=== PATIENT | male | born 1970 | race Caucasian/White ===

== ENCOUNTER 2023-01-31 12:36 | Outpatient (RCR) | payer BC, SELFPAY | END 2023-05-10 12:09 | disposition home or self-care (01) | LOC: HO.WCC 12:36 | PROVIDERS: PCP Family Medicine; Visit Provider Physician Assistant | DX: Z09 Encounter for follow-up examination after completed treatment for conditions other than malignant neoplasm (principal); E11.69 Type 2 diabetes mellitus with other specified complication; M86.471 Chronic osteomyelitis with draining sinus, right ankle and foot; M20.41 Other hammer toe(s) (acquired), right foot; I69.354 Hemiplegia and hemip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; E11.22 Type 2 diabetes mellitus with diabetic chronic kidney disease; I12.9 Hypertensive chronic kidney disease with stage 1 through stage 4 chronic kidney disease, or unspecified chronic kidney disease; N18.4 Chronic kidney disease, stage 4 (severe); Z86.31 Personal history of diabetic foot ulcer; Z87.891 Personal history of nicotine dependence; Z86.718 Personal history of other venous thrombosis and embolism; Z86.73 Personal history of transient ischemic attack (TIA), and cerebral infarction without residual deficits; Z79.2 Long term (current) use of antibiotics | CPT/HCPCS: 11042; 11043; 17250; 99212; 99213 ==

== ENCOUNTER 2023-04-07 10:56 | Outpatient (REF) | payer BC, SELFPAY ==
[2023-04-07 12:25] LABS: MANUAL DIFF FLAG NO
[2023-04-07 13:22] LABS: Basophils Absolute Auto 0.1 X10*3/uL (0.0-0.2); Basophils Percent Auto 0.6 % (0-2); Eosinophils Absolute Auto 0.3 X10*3/uL (0.0-0.4); Eosinophils Percent Auto 3.2 % (0-4); Hematocrit 35.8 % (42.0-52.0); Hemoglobin 11.6 g/dl (14.0-18.0); Imm Gran Abs Auto 0.03 X10*3/uL (0.00-0.03); Imm Gran Pct Auto 0.4 % (0.0-0.4); Lymphocytes Absolute Auto 0.8 X10*3/uL (1.2-4.9); Lymphocytes Percent Auto 10.2 % (20-40); Mean Corpuscular HGB Conc 32.4 g/dl (31.0-36.0); Mean Corpuscular Hemoglobin 28.9 pg (27.0-33.0); Mean Corpuscular Volume 89.1 fL (80.0-98.0); Monocytes Absolute Auto 0.4 X10*3/uL (0.1-1.2); Monocytes Percent Auto 5.5 % (2-11); Neutrophils Absolute Auto 6.2 x10*3/uL (2.0-8.3); Neutrophils Percent Auto 80.1 % (45-73); Platelet Count 280 X10*3/uL (160-400); Red Blood Count 4.02 X10*6/uL (4.60-5.80); Red Cell Distribution Width 13.4 % (11.0-16.0); White Blood Count 7.8 X10*3/uL (4.8-10.8)
[2023-04-07 15:01] LABS: Estimated Glomerular Filt Rate 19
== END 2023-04-07 10:57 | disposition home or self-care (01) ==
LOC: HO.LAB 10:56
PROVIDERS: PCP Family Medicine; Visit Provider Internal Medicine
DX: M86.9 Osteomyelitis, unspecified (principal); Q21.12 Patent foramen ovale; I10 Essential (primary) hypertension; E11.9 Type 2 diabetes mellitus without complications; I63.9 Cerebral infarction, unspecified; N19 Unspecified kidney failure; Z86.718 Personal history of other venous thrombosis and embolism
CPT/HCPCS: 36415; 82565; 85025

== ENCOUNTER 2023-04-07 10:56 | Outpatient (AMB) | payer BC, SELFPAY ==
--- NOTE | 2023-04-07 10:29 | MHC.OFFVIS ---
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 He is a diabetic with glycohemoglobin 6.7. He notices callus for years of right 5th toe. He sees Dr Oleary and had area debrided January 02. He had 5 days of Clindamycin after this and then Keflex for seven days. He has been to [facility] weekly since first week of January. He is on medical leave from [employer] and is residing at [place]. He has creatinine drawn today which is 3.33. He takes Sertraline at low dose ,50 mg. [facility] Medical History (Updated 04/09/23 @ 22:04 by Deysi Perez MD) Diabetes mellitus DVT (deep venous thrombosis) Hypertension Left-sided cerebrovascular accident (CVA) Osteomyelitis PFO (patent foramen ovale) Renal failure Social History (Updated 04/09/23 @ 21:59 by Deysi Perez MD) Patient Tobacco Use Status: Former Tobacco user Review of Systems Const All systems reviewed & are unremarkable except as noted in HPI and below Physical Exam Vital Signs: Last Vital Signs Pulse 61 04/07/23 11:09 BP 124/80 04/07/23 11:09 Pulse Ox 98 04/07/23 11:09 Neuro Other: dysarthria,left arm and leg weakness Extrem Other: right fifth toe ulcer Assessment & Plan Assessment & Plan (1) Osteomyelitis: Comment: He has no organism isolated right fifth toe ulcer. MRI shows soft tissue ulcer dorsal 5th PIP joint with cellulitis and no abscess. There is osteomyelitis 5th middle and proximal phalanges and probable fracture head 5th proximal phalanx. He most likely has gram positive organisms. Code(s): M86.9 - Osteomyelitis, unspecified Plan: Would not give IV antibiotics since h/o clot and GFR 15 and risk for more clots. Po linezolid 600 mg po bid for six weeks,suppressive treatment hopefully for osteomyelitis and can give with low dose SSRIs. See in two weeks. (2) PFO (patent foramen ovale): Code(s): Q21.12 - Patent foramen ovale (3) Hypertension: Code(s): I10 - Essential (primary) hypertension (4) DVT (deep venous thrombosis): Code(s): I82.409 - Acute embolism and thrombosis of unspecified deep veins of unspecified lower extremity (5) Diabetes mellitus: Code(s): E11.9 - Type 2 diabetes mellitus without complications (6) Left-sided cerebrovascular accident (CVA): Code(s): I63.9 - Cerebral infarction, unspecified (7) Renal failure: Code(s): N19 - Unspecified kidney failure Orders: Orders Creatinine 04/07/23 M86.9 - Osteomyelitis, unspecified Complete Blood Count Auto Diff 04/07/23 M86.9 - Osteomyelitis, unspecified Medications: New linezolid 600 mg PO BID 42 days 84 tabs 0RF linezolid 600 mg PO BID 42 days 84 tabs 0RF Coding Level of Care Code New Pt Level 3 (74566) Diagnoses Osteomyelitis M86.9 PFO (patent foramen ovale) Q21.12 Hypertension I10 DVT (deep venous thrombosis) I82.409 Diabetes mellitus E11.9 Left-sided cerebrovascular accident (CVA) I63.9 Renal failure N19
[2023-04-07 11:09] VITALS: BP 124/80; PULSE 61; O2SAT 98
== END 2023-04-07 12:53 | disposition home or self-care (01) ==
LOC: HO.HID 10:56
PROVIDERS: PCP Family Medicine; Visit Provider Internal Medicine
DX: M86.9 Osteomyelitis, unspecified (principal); Q21.12 Patent foramen ovale; I10 Essential (primary) hypertension; I82.409 Acute embolism and thrombosis of unspecified deep veins of unspecified lower extremity; E11.9 Type 2 diabetes mellitus without complications; I63.9 Cerebral infarction, unspecified; N19 Unspecified kidney failure
CPT/HCPCS: 99203

== ENCOUNTER 2023-05-03 14:52 | Outpatient (AMB) | payer BC, SELFPAY ==
--- NOTE | 2023-05-03 14:52 | MHC.OFFVIS ---
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 He is taking linezolid twice a day and sees Wound Clinic. PFS Medical History Diabetes mellitus DVT (deep venous thrombosis) Hypertension Left-sided cerebrovascular accident (CVA) Osteomyelitis PFO (patent foramen ovale) Renal failure Social History Patient Tobacco Use Status: Former Tobacco user Review of Systems Const All systems reviewed & are unremarkable except as noted in HPI and below Physical Exam Vital Signs: Last Vital Signs Pulse 73 05/03/23 14:57 BP 148/80 H 05/03/23 14:57 Pulse Ox 98 05/03/23 14:57 Const Other: General: cooperative Orientation/consciousness: patient oriented x3 HEENT Head: Yes normal to inspection Mouth: Normal oral and palatal mucosa present Eyes General: appearance normal, both eyes and all related structures Pupils: Equal, round and reactive pupils present Resp Effort & Inspection: normal respiratory effort Cardio Rate: regular rate Rhythm: regular rhythm GI Palpation (GI): Soft to palpation and nontender General: Yes no CVA tenderness Back/Spine/Pelvis Back: no CVA tenderness Skin General skin exam: no rashes or lesions noted Neuro General: patient oriented x3 Cranial nerves: Yes CN's II-XII intact bilaterally and Yes Equal, round and reactive pupils present Extrem Other: unremarkable foot pulses intact Psych Appearance: grossly normal Assessment & Plan Assessment & Plan (1) Osteomyelitis: Comment: He has no organism isolated right fifth toe ulcer. MRI shows soft tissue ulcer dorsal 5th PIP joint with cellulitis and no abscess. There is osteomyelitis 5th middle and proximal phalanges and probable fracture head 5th proximal phalanx. He most likely has gram positive organisms. Area is healing closed and not leaking and no complaints with linezolid. Code(s): M86.9 - Osteomyelitis, unspecified Plan: Would finish six weeks total linezolid help suppress. See again only if needed. Coding Level of Care Code Est Pt Level 3 (55280) Diagnoses Osteomyelitis M86.9
[2023-05-03 14:57] VITALS: BP 148/80; PULSE 73; O2SAT 98
== END 2023-05-03 15:44 | disposition home or self-care (01) ==
LOC: HO.HID 14:52
PROVIDERS: PCP Family Medicine; Visit Provider Internal Medicine
DX: M86.9 Osteomyelitis, unspecified (principal)
CPT/HCPCS: 99213

== ENCOUNTER → 2023-05-03 14:52 | Outpatient (BNVA) | payer BC, SELFPAY | PROVIDERS: PCP Family Medicine; Visit Provider Internal Medicine ==

== ENCOUNTER 2023-05-11 09:05 | Inpatient (IN) | payer BC, SELFPAY ==
[2023-05-11] VITALS (13 sets, daily range): BP systolic 130–195; BP diastolic 71–98; PULSE 72–96; RESP 14–18; TEMP 36.4–37.4; O2SAT 94–98; BMI 28.4
--- NOTE | ~2023-05-11 | XR_ITS ---
EXAMINATION: XR CHEST CLINICAL INFORMATION: Vomiting COMPARISON: None available. TECHNIQUE: Frontal view of the chest was obtained. FINDINGS: No significant abnormality is noted involving the heart, lungs, mediastinum, bony thorax or soft tissues. XR/XR chest 1V IMPRESSION: Unremarkable examination.
--- NOTE | ~2023-05-11 | CT_ITS ---
EXAMINATION: CT ABDOMEN AND PELVIS WITHOUT CONTRAST CLINICAL INFORMATION: Upper GI bleed with vomiting COMPARISON: None available. TECHNIQUE: Multidetector volumetric imaging was performed from the superior aspect of the liver through the pubic symphysis. Sagittal and coronal reformatted images were obtained on the technologist's workstation. This CT examination was performed using dose optimization techniques as appropriate, variously including the following: *Automated exposure control *Adjustment of mA and/or kV according to patient size (this includes techniques or standardized protocols for targeted exams where dose is matched to indication/reason for exam; i.e. extremities or head) *Use of iterative reconstruction technique DLP: 879 mGy-cm FINDINGS: LUNG BASES: The visualized lung bases are unremarkable. Dependent atelectasis is present. There is mild elevation of the left hemidiaphragm LIVER, GALLBLADDER, AND BILIARY TREE: The liver is normal in size, shape, and attenuation. No focal hepatic lesion or biliary ductal dilatation is present. Status post cholecystectomy PANCREAS: Unremarkable. SPLEEN: Unremarkable. ADRENAL GLANDS: Unremarkable. KIDNEYS AND URETERS: The kidneys are normal in size, shape, and attenuation. There is a benign simple cyst in the right kidney posteriorly measuring 2.6 cm which needs no additional imaging or follow-up. There is a heterogeneous appearing 3 cm mass in the right kidney laterally with some areas that measure fluid density but some areas that measure higher at 62 Hounsfield units. Neoplasm cannot be excluded. No hydronephrosis, hydroureter, or calculi seen. No perinephric stranding. BLADDER: Unremarkable. GASTROINTESTINAL TRACT: There are scattered colonic diverticula without diverticulitis. The small and large bowel are otherwise unremarkable. The appendix is unremarkable. ABDOMINAL WALL: No significant hernia is appreciated. LYMPH NODES: No retroperitoneal lymphadenopathy. VASCULAR: Minimal calcific plaque without aneurysm. PELVIC VISCERA: Mild BPH. Seminal vesicles appear normal OSSEOUS STRUCTURES: There is fusion of the right SI joint. The left SI joint appears unremarkable. There are mild degenerative changes in the spine and hips. No bony destruction. CT/CT abdomen pelvis wo IV con IMPRESSION: 1. A cause for the patient's vomiting and vomiting has not been found. 2. Indeterminate 3 cm right renal mass. Neoplasm needs to be excluded. Although ultrasound may be of value, I suspect that. Postcontrast cross-sectional imaging would be needed such as dedicated renal CT scan. 3. Incidental note made of cholecystectomy, colonic diverticulosis without diverticulitis, mild BPH and fusion of the right SI joint. Fleischner guidelines were followed.
--- NOTE | 2023-05-11 09:25 | PC.NURSE ---
pt comes in covered in blood from nose bleed. right nostril packed and gauze used for additional blood leaking from site. pt denies any injury, sts the nost bleed just started on its own and has not slowed down. denies all other symptoms including pain, however sts some weakness. pt left sided UE paralysis from stroke 4 years ago. on thinners. left LE partial paralysis, pt uses cane to ambulate. pt changed over to hospital attire and cleaned up from blood by darell Diego. pt resting quietly waiting to be seen by provider. in no apparent distress. call abbott within reach.
[2023-05-11 10:12] LABS: MANUAL DIFF FLAG NO
[2023-05-11 10:15] LABS: Basophils Percent Auto 0.4 % (0-2); Eosinophils Absolute Auto 0.2 X10*3/uL (0.0-0.4); Eosinophils Percent Auto 2.2 % (0-4); Hematocrit 25.9 % (42.0-52.0); Hemoglobin 8.8 g/dl (14.0-18.0); Imm Gran Abs Auto 0.03 X10*3/uL (0.00-0.03); Imm Gran Pct Auto 0.4 % (0.0-0.4); Lymphocytes Absolute Auto 0.8 X10*3/uL (1.2-4.9); Mean Corpuscular Hemoglobin 28.4 pg (27.0-33.0); Mean Corpuscular Volume 83.5 fL (80.0-98.0); Mean Platelet Volume 10.5 fL (9.4-12.4); Monocytes Absolute Auto 0.5 X10*3/uL (0.1-1.2); Monocytes Percent Auto 6.6 % (2-11); Neutrophils Absolute Auto 5.9 x10*3/uL (2.0-8.3); Neutrophils Percent Auto 79.4 % (45-73); Platelet Count 158 X10*3/uL (160-400); Red Cell Distribution Width 12.9 % (11.0-16.0); White Blood Count 7.4 X10*3/uL (4.8-10.8)
--- NOTE | 2023-05-11 10:17 | PC.NURSE ---
rhino rocket placed by MELISSA Torres to the pt's right nostril. pt hollered in pain but was able to tolerate. rhino rocket already saturated with blood and is oozing through. pt provided with gauze. pt sts pain has decreased from the placement of the rhino rocket and is resting quietly upright in bed.
[2023-05-11 10:19] LABS: Prothrombin Time 24.3 SEC (11.1-13.3)
--- NOTE | 2023-05-11 10:27 | ED.EPISTAXIS ---
History of Present Illness General Chief Complaint: Epistaxis Stated Complaint: BLOODY NOSE SINCE 5AM FROM SNF PER EMS Time Seen by Provider: 05/11/23 09:18 Source: patient Mode of arrival: EMS Limitations: no limitations History of Present Illness HPI Narrative: 53 y o male PMH DVT, left-sided CVA on Elliquis, CKD, and HTN presenting for right sided epistaxis since 0430 this am. Also reports vomiting for the past 2 days, now reporting it is brown with red tinge. Last dose of Elliquis this morning. Patient arrives via EMS from a SNF in which they attempted direct pressure to stop the bleeding with no improvement, and then nursing staff packed his right nare with cotton gauze still with no improvement. To note, at the time of this provider's history, patient actively projectile vomiting coffee ground emesis. Patient denying dizziness, shortness of breath, abdominal pain, visual changes, numbness or tingling. Also denying any fevers, chills, weight loss or gain. No history of gastric cancers or GERD. Related Data Home Medications Medication Instructions Recorded Confirmed amlodipine 10 mg tablet 10 mg PO DAILY 04/07/23 apixaban 5 mg tablet (Eliquis) 5 mg PO BID 04/07/23 carvedilol 12.5 mg tablet 12.5 mg PO BID 04/07/23 empagliflozin 10 mg tablet 10 mg PO DAILY 04/07/23 (Jardiance) levothyroxine 50 mcg capsule 50 mcg PO DAILY 04/07/23 pantoprazole 40 mg tablet,delayed 40 mg PO DAILY 04/07/23 release sertraline 50 mg tablet 50 mg PO DAILY 04/07/23 trazodone 50 mg tablet 25 mg PO DAILY 04/07/23 Previous Rx's Medication Instructions Recorded linezolid 600 mg tablet 600 mg PO BID 42 days #84 tabs 04/07/23 Allergies Allergy/AdvReac Type Severity Reaction Status Date / Time gabapentin Allergy Unknown Verified 05/03/23 14:58 Review of Systems Review of Systems: Constitutional : No Weight loss, No Fever, No Chills, No Fatigue, No Malaise ENT/Mouth : No sore throat, No Rhinorrhea, +epistaxis Eyes: No Eye Pain, No Swelling, No Redness Cardiovascular : No Chest Pain, No SOB, No Dyspnea on Exertion, No Orthopnea, No Edema, No Palpitations Respiratory : No Cough, No Sputum, No Wheezing Gastrointestinal : +Nausea, +Vomiting, No Diarrhea, No Constipation, No abdominal Pain, No Hematochezia, No Melena Genitourinary : No Dysuria, No Urinary Frequency, No Hematuria Musculoskeletal : No joint pain, No Myalgias, No Joint Swelling Skin : No Skin Lesions, No rash Neuro : No Weakness, No Numbness, No Dizziness, No Headache Psych : No Anxiety/Panic, No Depression Heme/Lymph: No Bruising, No Bleeding,No Lymphadenopathy Endocrine : No Polyuria, No Polydipsia All other systems reviewed and are negative Yes all other systems are reviewed and are negative [facility] Past Medical History Attestation statement: The following information was validated with the patient. Source: old records reviewed and nursing notes reviewed Medical History Diabetes mellitus DVT (deep venous thrombosis) Hypertension Left-sided cerebrovascular accident (CVA) Osteomyelitis PFO (patent foramen ovale) Renal failure Social History Social History Patient Tobacco Use Status: Former Tobacco user Smoked in Last 30 Days: No Use of substances other than those prescribed or required for medical reasons: No Advance Directives: No Advance Directives Information Provided: No Physical Exam Vital Signs: Vital Signs: Last Vital Signs Temp 97.6 F 05/11/23 14:59 Pulse 80 05/11/23 14:59 Resp 18 05/11/23 14:59 BP 183/97 H 05/11/23 14:59 Pulse Ox 96 05/11/23 09:13 O2 Del Method Room Air 05/11/23 09:13 BMI result Body Mass Index 28.4 Appearance: Alert. Oriented X3. No acute distress. ? No accessory muscle use Head: Normal external exam. Normocephalic. Atraumatic. ? Eyes: PERRLA. EOMI. Conjunctiva and sclera normal. Eyelids normal. ? ENT: Pharynx normal. Uvula midline. Moist mucous membranes. ? No trismus noted.? No drooling noted.? No muffled voice noted. +Epistaxis of the right nare Neck: ?Soft full range of motion, no JVD CVS: ?Heart regular rate and rhythm no murmurs and rubs Respiratory: ?Breath sounds are clear to auscultation bilaterally. No wheezing or stridor.? No accessory muscle use noted. Abdomen: ?Soft nontender no rebound or guarding positive bowel sounds Skin: Skin warm and dry.? Normal skin color.? Normal skin turgor. No rashes/lesions/lacerations noted. Extremities: No lower extremity edema. ? Extremities exhibit normal range of motion.? Extremities nontender. Neuro: Oriented X 3.? No motor deficit.? No sensory deficit.? Reflexes normal Course Reevaluation(s) Reevaluation #1: CBC with a normocytic anemia at 8.8 and 25.9 then was accidentally repeated about 25 minutes after showing a hemoglobin of 9.3, hematocrit 27.4. Patient's chemistry showing an acute on chronic kidney injury BUN of 48, creatinine 3.68 this appears to be around patient's baseline. Patient's magnesium 1.4 will give IV Mag. mmediately upon patient's arrival I did place a 5 point from eyes right-sided rhino rocket, I did 1st coat the rhino rocket in TXA to help control bleeding. Patient tolerated this procedure well without complications. Patient has had 2 episodes of vomiting with rosie red blood, large volume. Call out to ELDA Flowers. Time: 11:00 Reevaluation #2: Patient continues to vomit rosie red blood, I did speak to ELDA Pedersen, patient remains hemodynamically stable, recommends vitamin K, FFP and close observation. Will reach back out to him if patient's hemodynamics status changes. Pending CT abdomen pelvis and chest x-ray. Time: 11:20 Reevaluation #3: I did speak to Dr. [place] earlier at around 1035 who tells me patient has a history of vomiting intermittently he believes this is psychogenic in nature. He also reports that patient has been having right-sided epistaxis multiple episodes within the past week this seems to be the worse. Patient is currently has osteomyelitis of toe which she is being treated for by the wound center. He also reports that patient had outpatient labs yesterday which revealed a hematocrit 27.4. He would like to be informed of any changes related to patient care will call him with updates. [id number] Time: 11:26 Additional Reevaluation(s): CBC stable. Dr. Pedersen GI in room will see patiient. ? UGIB but also epistaxis. Patient hemodynamically stable. Will be admitted for observation and possible upper endoscopy. Medications Administered Discontinued Medications Generic Name Dose Route Start Last Admin Trade Name Evelin PRN Reason Stop Dose Admin Acetaminophen 650 mg 05/11/23 14:26 05/11/23 14:45 Acetaminophen 325 Mg Tablet PO 05/11/23 14:27 650 mg ONCE ONE Administration Phytonadione 10 mg/ Sodium 51 mls @ 51 mls/hr 05/11/23 11:19 05/11/23 13:55 Chloride IV 05/11/23 12:18 Infused ONCE ONE Infusion Magnesium Sulfate 2 gm in 50 mls @ 25 mls/hr 05/11/23 11:23 05/11/23 14:27 Magnesium Sulfate/H2o IV 05/11/23 13:22 Infused ONCE ONE Infusion Ondansetron HCl 4 mg 05/11/23 11:07 05/11/23 11:15 Ondansetron Hcl 4 Mg/2 Ml Vial IVPUSH 05/11/23 11:08 4 mg ONCE ONE Administration Pantoprazole Sodium 40 mg 05/11/23 10:33 05/11/23 10:57 Pantoprazole Sodium 40 Mg/10 Ml Vial IVPUSH 05/11/23 10:34 40 mg ONCE ONE Administration Tranexamic Acid 500 mg 05/11/23 10:07 05/11/23 10:29 Tranexamic Acid 1,000 Mg/10 Ml Vial INTRANASAL 05/11/23 10:08 500 mg ONCE ONE Administration Medical Decision Making Medical Decision Making [facility] Narrative: 1030 53 y o male PMH DVT, left-sided CVA on Elliquis, HTN, CKD presenting for evaluation of vomiting x3 days and epistaxis since this AM, still actively bleeding with conservative efforts. PE concerning for actively vomiting coffee ground emesis, as well as Concern for epistaxis w/ possible concomitant UGIB > LGIB which may include Boerhaave syndrome vs zee-pedersen tear vs esophageal varices vs gastritis vs gastric ulcer vs duodenal ulcer vs perforation. Less concerned for GI malignancy, acute abdomen. No signs of hemodynamic instability at this time. Plan for labs, imaging, hemoccult and reassess. Will obtain T&S and continue hemodynamic monitoring. Differential Diagnosis Differential Diagnoses: The differential diagnosis associated with the presentation includes Concern for epistaxis w/ possible concomitant UGIB > LGIB which may include Boerhaave syndrome vs zee-pedersen tear vs esophageal varices vs gastritis vs gastric ulcer vs duodenal ulcer vs perforation. Less concerned for GI malignancy, acute abdomen. No signs of hemodynamic instability at this time. Admission/Observation Consideration of admission/observation: Escalation of care including admission/observation considered Consult Healthcare Provider Management of the patient was discussed with: Manager Social Services Lab Data MDM Lab Attestation statement: I reviewed the patient's lab results. 05/11/23 13:52 05/11/23 10:07 Labs: Lab Results 05/11/23 05/11/23 05/11/23 Range/Units 10:07 10:21 10:36 WBC 7.4 8.5 (4.8-10.8) X10*3/uL RBC 3.10 L D 3.26 L (4.60-5.80) X10*6/uL Hgb 8.8 L D 9.3 L (14.0-18.0) g/dl Hct 25.9 L D 27.4 L (42.0-52.0) % MCV 83.5 84.0 (80.0-98.0) fL MCH 28.4 28.5 (27.0-33.0) pg MCHC 34.0 33.9 (31.0-36.0) g/dl RDW 12.9 12.9 (11.0-16.0) % Plt Count 158 L D 172 (160-400) X10*3/uL MPV 10.5 10.4 (9.4-12.4) fL Immature Gran % (Auto) 0.4 0.5 H (0.0-0.4) % Neut % (Auto) 79.4 H 80.6 H (45-73) % Lymph % (Auto) 11.0 L 10.5 L (20-40) % [place] % (Auto) 6.6 5.9 (2-11) % Eos % (Auto) 2.2 2.1 (0-4) % Baso % (Auto) 0.4 0.4 (0-2) % Lymph # (Auto) 0.8 L 0.9 L (1.2-4.9) X10*3/uL [place] # (Auto) 0.5 0.5 (0.1-1.2) X10*3/uL Eos # (Auto) 0.2 0.2 (0.0-0.4) X10*3/uL Baso # (Auto) 0.0 0.0 (0.0-0.2) X10*3/uL Abs Immat Gran (auto) 0.03 0.04 H (0.00-0.03) X10*3/uL Absolute Neuts (auto) 5.9 6.8 (2.0-8.3) x10*3/uL Absolute Nucleated RBC 0.000 0.000 (0.0-0.012) X10*3/uL Nucleated RBC % (auto) 0.0 0.0 (0.0-0.2) /100WBC PT 24.3 H (11.1-13.3) SEC INR 2.0 H (0.9-1.1) Sodium 140 (135-145) mmol/L Potassium 3.8 (3.3-5.1) mmol/L Chloride 111 H (96-108) mmol/L Carbon Dioxide 19 L (22-29) mmol/L Anion Gap 14 (12-20) BUN 48 H (9-16) mg/dL Creatinine 3.68 H (0.5-1.4) mg/dL Estim Creat Clear Calc 28.1 Estimated GFR 17 Random Glucose 139 H (60-115) mg/dL Calcium 8.0 L (8.4-10.2) mg/dL Magnesium 1.4 L* (1.6-2.6) mg/dL Total Bilirubin 0.3 (0.0-1.0) mg/dL AST 12 (5-37) U/L ALT 22 (0-40) U/L Alkaline Phosphatase 89 (39-117) U/L Total Protein 6.7 (6.5-8.0) g/dL Albumin 3.9 (3.5-5.0) g/dL Stool Occult Blood POSITIVE (NEGATIVE) Blood Type O Positive Antibody Screen NEGATIVE 05/11/23 Range/Units 13:52 WBC 9.9 (4.8-10.8) X10*3/uL RBC 3.55 L (4.60-5.80) X10*6/uL Hgb 10.1 L (14.0-18.0) g/dl Hct 30.5 L (42.0-52.0) % MCV 85.9 (80.0-98.0) fL MCH 28.5 (27.0-33.0) pg MCHC 33.1 (31.0-36.0) g/dl RDW 12.8 (11.0-16.0) % Plt Count 178 (160-400) X10*3/uL MPV 10.6 (9.4-12.4) fL Immature Gran % (Auto) 0.3 (0.0-0.4) % Neut % (Auto) 87.2 H (45-73) % Lymph % (Auto) 7.4 L (20-40) % [place] % (Auto) 3.7 (2-11) % Eos % (Auto) 1.0 (0-4) % Baso % (Auto) 0.4 (0-2) % Lymph # (Auto) 0.7 L (1.2-4.9) X10*3/uL [place] # (Auto) 0.4 (0.1-1.2) X10*3/uL Eos # (Auto) 0.1 (0.0-0.4) X10*3/uL Baso # (Auto) 0.0 (0.0-0.2) X10*3/uL Abs Immat Gran (auto) 0.03 (0.00-0.03) X10*3/uL Absolute Neuts (auto) 8.6 H (2.0-8.3) x10*3/uL Absolute Nucleated RBC 0.000 (0.0-0.012) X10*3/uL Nucleated RBC % (auto) 0.0 (0.0-0.2) /100WBC PT (11.1-13.3) SEC INR (0.9-1.1) Sodium (135-145) mmol/L Potassium (3.3-5.1) mmol/L Chloride (96-108) mmol/L Carbon Dioxide (22-29) mmol/L Anion Gap (12-20) BUN (9-16) mg/dL Creatinine (0.5-1.4) mg/dL Estim Creat Clear Calc Estimated GFR Random Glucose (60-115) mg/dL Calcium (8.4-10.2) mg/dL Magnesium (1.6-2.6) mg/dL Total Bilirubin (0.0-1.0) mg/dL AST (5-37) U/L ALT (0-40) U/L Alkaline Phosphatase (39-117) U/L Total Protein (6.5-8.0) g/dL Albumin (3.5-5.0) g/dL Stool Occult Blood (NEGATIVE) Blood Type Antibody Screen Independent Interpretation I performed an independent interpretation of an: CT Scan ( CT/CT abdomen pelvis wo IV con IMPRESSION: 1. A cause for the patient's vomiting and vomiting has not been found. 2. Indeterminate 3 cm right renal mass. Neoplasm needs to be excluded. Although ultrasound may be of value, I suspect that. Postcontrast cross-sectional imaging would be needed such a) Radiology Impression Discussion of test interpretation with radiology: I have reviewed the radiologist's reading. External Record Review External record reviewed: Inpatient record, Office record, Outpatient record, Prior outpatient labs, Prior outpatient radiology, Primary care record and Outside ED record Chronic Conditions Patient?s care impacted by: Diabetes, Hypertension and Other (VIRA, CVA ) Critical Care Time Critical Care Time Critical Care Time: Yes Total Critical Care Time: 45 Attestation: I attest to this time spent taking care of the patient, obtaining history, physical, reviewing labs, imaging, speaking to my attending, speaking to specialist. Discharge Plan Discharge Clinical Impression: Acute upper GI bleeding, Epistaxis Patient Disposition: Admitted As Inpatient Prescriptions: No Action trazodone 50 mg tablet 25 mg PO DAILY levothyroxine 50 mcg capsule 50 mcg PO DAILY pantoprazole 40 mg tablet,delayed release (DR/EC) 40 mg PO DAILY amlodipine 10 mg tablet 10 mg PO DAILY Jardiance 10 mg tablet 10 mg PO DAILY sertraline 50 mg tablet 50 mg PO DAILY carvedilol 12.5 mg tablet 12.5 mg PO BID Rx Instructions: must administer with a meal/food Eliquis 5 mg tablet 5 mg PO BID linezolid 600 mg tablet 600 mg PO BID 42 Days Qty: 84 0RF
[2023-05-11] MEDS: Tranexamic Acid 1,000 MG/10 ML VIAL 500 MG INTRANASAL (10:29)
[2023-05-11 10:30] LABS: OBS Int Ctl Valid YES; OBS1 POSITIVE (NEGATIVE)
[2023-05-11 10:33] LABS: Alanine Aminotransferase 22 U/L (0-40); Albumin Level 3.9 g/dL (3.5-5.0); Alkaline Phosphatase 89 U/L (39-117); Anion Gap 14 (12-20); Aspartate Amino Transferase 12 U/L (5-37); Bilirubin Total 0.3 mg/dL (0.0-1.0); Blood Urea Nitrogen 48 mg/dL (9-16); Carbon Dioxide 19 mmol/L (22-29); Chloride 111 mmol/L (96-108); Creatinine Clr Calc Pharmacy 28.1; Estimated Glomerular Filt Rate 17; Glucose Random 139 mg/dL (60-115); Magnesium 1.4 mg/dL (1.6-2.6); Potassium 3.8 mmol/L (3.3-5.1); Sodium 140 mmol/L (135-145); Total Protein 6.7 g/dL (6.5-8.0)
[2023-05-11 10:46] LABS: MANUAL DIFF FLAG NO
[2023-05-11 10:48] LABS: Basophils Percent Auto 0.4 % (0-2); Eosinophils Absolute Auto 0.2 X10*3/uL (0.0-0.4); Eosinophils Percent Auto 2.1 % (0-4); Hematocrit 27.4 % (42.0-52.0); Hemoglobin 9.3 g/dl (14.0-18.0); Imm Gran Abs Auto 0.04 X10*3/uL (0.00-0.03); Imm Gran Pct Auto 0.5 % (0.0-0.4); Lymphocytes Absolute Auto 0.9 X10*3/uL (1.2-4.9); Lymphocytes Percent Auto 10.5 % (20-40); Mean Corpuscular HGB Conc 33.9 g/dl (31.0-36.0); Mean Corpuscular Hemoglobin 28.5 pg (27.0-33.0); Mean Platelet Volume 10.4 fL (9.4-12.4); Monocytes Absolute Auto 0.5 X10*3/uL (0.1-1.2); Monocytes Percent Auto 5.9 % (2-11); Neutrophils Absolute Auto 6.8 x10*3/uL (2.0-8.3); Neutrophils Percent Auto 80.6 % (45-73); Platelet Count 172 X10*3/uL (160-400); Red Blood Count 3.26 X10*6/uL (4.60-5.80); Red Cell Distribution Width 12.9 % (11.0-16.0); White Blood Count 8.5 X10*3/uL (4.8-10.8)
[2023-05-11] MEDS: Pantoprazole Sodium 40 MG/10 ML VIAL IVPUSH (10:57)
--- NOTE | 2023-05-11 11:00 | PC.NURSE ---
pt began to vomit black sludgy emesis. provider notified and aware. pt medicated per oct. large bore IV established to the L wrist/forearm by ANDREW New. pt cleaned up, changed, and full bed linen changeover. currently resting quietly on stretcher. call abbott within pt reach.
[2023-05-11] MEDS: ondansetron HCL 4 MG/2 ML VIAL IVPUSH (11:15)
[2023-05-11] MEDS: Phytonadione (Vit K1) 10 MG in 0.9 % Sodium Chloride 50 ML 51 MG IV (12:06)
[2023-05-11] MEDS: Magnesium Sulfate/H2O 2 GM/50 ML PIGGYBACK IV (12:31)
--- NOTE | 2023-05-11 13:23 | MHC.EDTECH ---
patient attempted to void twice but is unsuccessful, RN AWARE.
[2023-05-11 13:57] LABS: MANUAL DIFF FLAG NO
[2023-05-11 13:59] LABS: Basophils Percent Auto 0.4 % (0-2); Eosinophils Absolute Auto 0.1 X10*3/uL (0.0-0.4); Hematocrit 30.5 % (42.0-52.0); Hemoglobin 10.1 g/dl (14.0-18.0); Imm Gran Abs Auto 0.03 X10*3/uL (0.00-0.03); Imm Gran Pct Auto 0.3 % (0.0-0.4); Lymphocytes Absolute Auto 0.7 X10*3/uL (1.2-4.9); Lymphocytes Percent Auto 7.4 % (20-40); Mean Corpuscular HGB Conc 33.1 g/dl (31.0-36.0); Mean Corpuscular Hemoglobin 28.5 pg (27.0-33.0); Mean Corpuscular Volume 85.9 fL (80.0-98.0); Mean Platelet Volume 10.6 fL (9.4-12.4); Monocytes Absolute Auto 0.4 X10*3/uL (0.1-1.2); Monocytes Percent Auto 3.7 % (2-11); Neutrophils Absolute Auto 8.6 x10*3/uL (2.0-8.3); Neutrophils Percent Auto 87.2 % (45-73); Platelet Count 178 X10*3/uL (160-400); Red Blood Count 3.55 X10*6/uL (4.60-5.80); Red Cell Distribution Width 12.8 % (11.0-16.0); White Blood Count 9.9 X10*3/uL (4.8-10.8)
[2023-05-11] MEDS: Acetaminophen 325 MG TABLET 650 MG PO (14:45)
[2023-05-11] MEDS: Amoxicillin/Potassium Clav 875 MG TABLET PO (16:15)
--- NOTE | 2023-05-11 16:58 | PHA.MEDREC ---
med rec complete, used list from SNF Pharmacy Consult ? Medication Reconciliation Pharmacy has completed the medication reconciliation.
--- NOTE | 2023-05-11 17:36 | PM.IMHP ---
History of Present Illness Date of Service: 05/11/23 Chief Complaint: nosebleed 53yo M with CKD4, DM2, HTN, hypothyroidism, hx L-sided CVA [2019], hx DVT now on apixaban, and osteomyelitis of the 5th middle and proximal phalanges for which he is on 6 wk of PO linezolid. 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 He presents with vomiting for the past 2 days but actually he states that he has had nausea and vomiting all my life . He developed a nosebleed from the R nare at 0430 this AM and actually has had several episodes of epistaxis this week. Direct pressure and anterior packing by nursing staff did not stop the bleed. In the ED, a Rhino Rocket coated in TXA was placed with hemostasis. He developed 2 episodes of projectile coffee-ground emesis and the pleat patternmaker Dr Nichols was consulted. He was given vitamin K and FFP. Hemoglobin was stable at 8.8->9.3->10.1. INR 2. SCr 3.68 [3.33 on 04/07/23]. Denies history of GI bleeding or liver cirrhosis. He denies fever, chills, lightheadedness, dyspnea, chest pain, or abdominal pain. [facility] Medical History Renal failure PFO (patent foramen ovale) Hypertension DVT (deep venous thrombosis) Diabetes mellitus Left-sided cerebrovascular accident (CVA) Osteomyelitis Pertinent family history: no liver disease, bleeding diathesis, or kidney disease Social History Patient Tobacco Use Status: Former Tobacco user Smoked in Last 30 Days: No Use of substances other than those prescribed or required for medical reasons: No Advance Directives: No Advance Directives Information Provided: No Meds Allergies Allergy/AdvReac Type Severity Reaction Status Date / Time gabapentin Allergy Unknown Verified 05/03/23 14:58 Active Medications: Current Medications Amlodipine Besylate (Amlodipine Besylate 10 Mg Tablet) 10 mg PO DAILY [facility]; Protocol Atorvastatin Calcium (Atorvastatin Calcium 40 Mg Tablet) 40 mg PO BEDTIME [facility] Calcitriol (Calcitriol 0.25 Mcg Capsule) 0.25 mcg PO DAILY [facility] Carvedilol (Carvedilol 12.5 Mg Tablet) 12.5 mg PO BID [facility]; Protocol Dextrose (Dextrose 50 % 25 Gm/50 Ml Syringe) 25 gm IVPUSH Q15M PRN; Protocol PRN Reason: per Hypoglycemia Standing Ord. Famotidine (Famotidine 20 Mg Tablet) 10 mg PO BID PRN PRN Reason: Nausea Glucose (Glucose Gel 15 Gm Gel..Gram.) 15 gm PO Q15M PRN; Protocol PRN Reason: per Hypoglycemia Standing Ord. Guaifenesin (Guaifenesin 100 Mg/5 Ml Liquid) ml PO Q4H PRN PRN Reason: Cough Desmopressin Acetate 20 mcg/ (Sodium Chloride) 55 mls @ 100 mls/hr IV ONCE ONE Stop: 05/11/23 18:07 Insulin Human Lispro (Insulin Lispro 100 Unit/Ml 3 Ml Vial) 0 unit SUBCUT QIDACHS [facility]; Protocol Levothyroxine Sodium (Levothyroxine Sodium 50 Mcg Tablet) 50 mcg PO DAILY [facility] Linezolid (Linezolid 600 Mg Tablet) 600 mg PO BID [facility] Pantoprazole Sodium (Pantoprazole Sodium 40 Mg/10 Ml Vial) 40 mg IVPUSH BID@0630,1630 [facility] Sertraline HCl (Sertraline Hcl 50 Mg Tablet) 50 mg PO DAILY [facility] Trazodone HCl (Trazodone Hcl 25 Mg Halftab) 25 mg PO BEDTIME [facility] Home Medications Medication Instructions Recorded Confirmed Last Taken Type amlodipine 10 mg tablet 10 mg PO DAILY 04/07/23 05/11/23 Unknown History apixaban 5 mg tablet (Eliquis) 5 mg PO BID 04/07/23 05/11/23 Unknown History carvedilol 12.5 mg tablet 12.5 mg PO BID 04/07/23 05/11/23 Unknown History empagliflozin 10 mg tablet 10 mg PO DAILY 04/07/23 05/11/23 Unknown History (Jardiance) levothyroxine 50 mcg capsule 50 mcg PO DAILY 04/07/23 05/11/23 Unknown History pantoprazole 40 mg tablet,delayed 40 mg PO DAILY 04/07/23 05/11/23 Unknown History release sertraline 50 mg tablet 50 mg PO DAILY 04/07/23 05/11/23 Unknown History trazodone 50 mg tablet 25 mg PO BEDTIME 04/07/23 05/11/23 Unknown History Lactobacil.acidophilus-Bifido.animalis 1 cap PO DAILY 05/11/23 05/11/23 Unknown History 5 billion cell sprinkle capsule (Probiotic) acetaminophen 325 mg tablet 650 mg PO Q6H PRN Pain 05/11/23 05/11/23 Unknown History atorvastatin 40 mg tablet 40 mg PO BEDTIME 05/11/23 05/11/23 Unknown History calcitriol 0.25 mcg capsule 0.25 mcg PO DAILY 05/11/23 05/11/23 Unknown History ciclopirox 0.77 % topical gel 1 appl topical BID 05/11/23 05/11/23 Unknown History famotidine 10 mg tablet (Pepcid AC) 10 mg PO BID PRN Nausea 05/11/23 05/11/23 Unknown History guaifenesin 100 mg/5 mL oral liquid 200 mg PO Q4H PRN Cough 05/11/23 05/11/23 Unknown History ondansetron 4 mg disintegrating 4 mg PO Q6H PRN Nausea 05/11/23 05/11/23 Unknown History tablet tramadol 50 mg tablet 50 mg PO Q8H PRN Pain 05/11/23 05/11/23 Unknown History Physical Exam Vital Signs and Narrative: Vital Signs: Last Vital Signs Temp 97.7 F 05/11/23 15:20 Pulse 82 05/11/23 17:15 Resp 14 05/11/23 17:15 BP 152/76 H 05/11/23 17:15 Pulse Ox 94 05/11/23 17:15 O2 Del Method Room Air 05/11/23 17:15 BMI result Body Mass Index 28.4 Gen: in no acute distress HEENT: sclera anicteric, moist mucus membranes, Rhino-Rocket in place Neck: supple Lungs: clear to auscultation bilaterally Heart: regular rate and rhythm, no murmurs Abd: soft, non-tender, non-distended Ext: no edema Skin: warm/well-perfused Neuro: alert and oriented x3, chronic L hemiplegia Psych: appropriate affect Results Labs 05/11/23 13:52 05/11/23 10:07 Labs: Laboratory Results - last 24 hr 05/11/23 05/11/23 05/11/23 10:07 10:21 10:36 MCV 83.5 84.0 MCH 28.4 28.5 MCHC 34.0 33.9 RDW 12.9 12.9 Plt Count 158 L D 172 MPV 10.5 10.4 Immature Gran % (Auto) 0.4 0.5 H Neut % (Auto) 79.4 H 80.6 H Lymph % (Auto) 11.0 L 10.5 L [place] % (Auto) 6.6 5.9 Eos % (Auto) 2.2 2.1 Baso % (Auto) 0.4 0.4 Lymph # (Auto) 0.8 L 0.9 L [place] # (Auto) 0.5 0.5 Eos # (Auto) 0.2 0.2 Baso # (Auto) 0.0 0.0 Abs Immat Gran (auto) 0.03 0.04 H Absolute Neuts (auto) 5.9 6.8 Absolute Nucleated RBC 0.000 0.000 Nucleated RBC % (auto) 0.0 0.0 PT 24.3 H INR 2.0 H Anion Gap 14 Estim Creat Clear Calc 28.1 Estimated GFR 17 Random Glucose 139 H Calcium 8.0 L Magnesium 1.4 L* Total Bilirubin 0.3 AST 12 ALT 22 Alkaline Phosphatase 89 Total Protein 6.7 Albumin 3.9 Stool Occult Blood POSITIVE Blood Type O Positive Antibody Screen NEGATIVE 05/11/23 13:52 MCV 85.9 MCH 28.5 MCHC 33.1 RDW 12.8 Plt Count 178 MPV 10.6 Immature Gran % (Auto) 0.3 Neut % (Auto) 87.2 H Lymph % (Auto) 7.4 L [place] % (Auto) 3.7 Eos % (Auto) 1.0 Baso % (Auto) 0.4 Lymph # (Auto) 0.7 L [place] # (Auto) 0.4 Eos # (Auto) 0.1 Baso # (Auto) 0.0 Abs Immat Gran (auto) 0.03 Absolute Neuts (auto) 8.6 H Absolute Nucleated RBC 0.000 Nucleated RBC % (auto) 0.0 PT INR Anion Gap Estim Creat Clear Calc Estimated GFR Random Glucose Calcium Magnesium Total Bilirubin AST ALT Alkaline Phosphatase Total Protein Albumin Stool Occult Blood Blood Type Antibody Screen Imaging Radiologist's Impressions: Impressions Chest X-Ray 05/11/23 12:04 IMPRESSION: Unremarkable examination. Abdomen/Pelvis CT 05/11/23 13:19 IMPRESSION: 1. A cause for the patient's vomiting and vomiting has not been found. 2. Indeterminate 3 cm right renal mass. Neoplasm needs to be excluded. Although ultrasound may be of value, I suspect that. Postcontrast cross-sectional imaging would be needed such as dedicated renal CT scan. 3. Incidental note made of cholecystectomy, colonic diverticulosis without diverticulitis, mild BPH and fusion of the right SI joint. Fleischner guidelines were followed. Assessment and Plan (1) Epistaxis: Status: Acute (2) Acute upper GI bleeding: Status: Acute Plan 53yo M with CKD4, DM2, HTN, hypothyroidism, hx L-sided CVA [2019], hx DVT now on apixaban, and osteomyelitis of the 5th middle and proximal phalanges for which he is on 6 wk of PO linezolid. Presenting with epistaxis requiring Rhino Rocket, then developed coffee-ground emesis x2 concerning for acute UGIB. UGIB - Admit to telemetry, give IV PPI, monitor H+H + INR. Suspect Juju-Nichols tear but will have endoscopic evaluation and thus will be NPO. epistaxis - Rhino-Rocket x72h then removal by ENT as outpt [ED and pt aware we do not have inpt ENT consultation]. ABX ppx while in place; amp-sul while NPO, then amox-clav when taking PO hypoMg - repleted IV; recheck level in AM incidental R renal mass - Outpt CT or MRI osteomyelitis of 5th phalanx - Continue PO linezolid CKD4 - Creatinine close to baseline, avoid nephrotoxins hypothyroidism - LT4 HTN - Carvedilol, amlodipine HLD - Atorvastatin DM2 - Correction-dose lispro hx DVT hx CVA - Hold apixaban mood disorder - Continue sertraline + trazodone VTE ppx - SCDs, hold apiaxaban due to bleeding code - DNR/DNI, MOLST in chart I anticipate that the patient will stay at least 2 midnights as an inpatient in the hospital due to the above reasons. It is neither reasonable nor safe to care for them in a less acute setting. Time Spent With Patient Time: Total time managing care of this patient today ____ minutes. Quality Stroke Does the patient have a stroke diagnosis?: No VTE Prior VTE?: No VTE Risk Level:: Medical - moderate - high VTE Device Contraindication: N/A - Device Ordered VTE Drug Contraindication: Treatment Not Indicated
--- OUTSIDE RECORDS SUMMARY | 2023-05-11 17:42 | XMS_ITS | Continuity of Care Document ---
Author Name Unknown Organization [facility] ter Address [address] [place] [id number]- Care Team Providers Care Manager Fiber Name Role Phone Eliana LEDESMA, Elvis N Primary Care Physician [phone] [place] [facility] [place] - 09/04/[address] [id number] Encounter Diagnosis COVID(Final) - 08/31/21 Discharge Disposition: A-D/C Home Attending Physician: Aldair LEDESMA, Darvin Motley Admitting Physician: Elizabeth Montiel MD Referring Physician: Not on Staff, Referring MD Allergies, Adverse Reactions, Alerts Substance Reaction Severity Status NKA Active Immunizations Given and Recorded Vaccine Date Status Refusal Reason influenza virus vaccine, inactivated 05/15/20 Alfred rded Medications amLODIPine 10 mg oral tablet 1 tablet = 10 mg, By Mouth, Daily, # 30 tablet, 0 Refills, Maintenance, 09/01/21 10:01:00 EST, Tablet, Partial fill upon patient request if the prescription is for a schedule II opioid drug. Start Date: 09/01/21 Status: Ordered atorvastatin 40 mg oral tablet 1 tablet = 40 mg, By Mouth, Daily, # 90 tablet, 0 Refills, Maintenance, 09/01/21 10:02:00 EST, Tablet, Partial fill upon patient request if the prescription is for a schedule II opioid drug. Start Date: 09/01/21 Status: Ordered carvedilol 12.5 mg oral tablet 12.5 mg, 1, tablet, By Mouth, 2 times a day, # 180 tablet, Refills 0, Maintenance, 09/01/21 10:03:00 EST, Partial fill upon patient request if the prescription is for a schedule II opioid drug. Start Date: 09/01/21 Status: Ordered carvedilol 12.5 mg oral tablet 12.5 mg, Tablet, By Mouth, 09/04/21 9:00:00 EST Start Date: 09/04/21 Stop Date: 09/04/21 Status: Completed Eliquis 5 mg oral tablet 1 tablet = 5 mg, By Mouth, 2 times a day, # 60 tablet, 5 Refills, Maintenance, 09/01/21 10:01:00 EST, Tablet, Partial fill upon patient request if the prescription is for a schedule II opioid drug. Start Date: 09/01/21 Status: Ordered hydrALAZINE 25 mg oral tablet 50 mg, Tablet, By Mouth, 09/04/21 10:34:00 EST Start Date: 09/04/21 Stop Date: 09/04/21 Status: Completed hydrALAZINE 25 mg oral tablet 50 mg, 2, tablet, By Mouth, 2 times a day, # 120 tablet, Refills 0, Tot. Refills 0, Maintenance, 09/04/21 21:00:00 EST, Route to Pharmacy Electronically, [facility]/pharmacy #[id number], Partial fill upon patientrequest if the prescription is for a schedule II op... Start Date: 09/04/21 Status: Ordered levothyroxine 0.05 mg oral tablet 1 tablet = 50 mcg, By Mouth, Daily, # 30 tablet, 0 Refills, Maintenance, 09/01/21 10:03:00 EST, Tablet, Partial fill upon patient request if the prescription is for a schedule II opioid drug. Start Date: 09/01/21 Status: Ordered metFORMIN 500 mg oral tablet 1 tablet = 500 mg, By Mouth, 2 times a day, # 180 tablet, 0 Refills, Maintenance, 09/01/21 10:02:00EST, Tablet, Partial fill upon patient request if the prescription is for a schedule II opioid drug. Start Date: 09/01/21 Status: Ordered NIFEdipine 30 mg oral tablet, extended release 30 mg, 1, tablet, By Mouth, 2 times a day, # 60 tablet, Refills 0, Tot. Refills 0, Maintenance, 09/04/21 21:00:00 EST, Route to Pharmacy Electronically, [facility]/pharmacy #[id number], Partial fill upon patient request if the prescription is for a schedule II opi... Start Date: 09/04/21 Status: Ordered NIFEdipine 30 mg oral tablet, extended release 30 mg, ER Tablet, By Mouth, 09/04/21 9:00:00 EST Start Date: 09/04/21 Stop Date: 09/04/21 Status: Completed pantoprazole 40 mg oral delayed release tablet 1 tablet = 40 mg, By Mouth, Daily, # 30 tablet, 0 Refills, Maintenance, 09/01/21 10:02:00 EST, EC Tablet Start Date: 09/01/21 Status: Ordered sertraline 50 mg oral tablet 1 tablet = 50 mg, By Mouth, Daily, # 30 tablet, 0 Refills, Maintenance, 09/01/21 10:01:00 EST, Tablet, Partial fill upon patient request if the prescription is for a schedule II opioid drug. Start Date: 09/01/21 Status: Ordered Vital Signs Most recent to oldest [Reference Range]: 1 2 3 4 Height 188 cm (09/03/21 12:15 AM) 188 cm (09/02/21 7:59 PM) 188 cm (09/02/21 11:41 AM) Oxygen Saturation [94-100 %] 100 % (09/04/21 11:00 AM) 98 % (09/04/21 8:00 AM) 100 % (09/04/21 4:00 AM) Pulse Rate [55-90 bpm] 65 bpm (09/04/21 11:00 AM) 62 bpm (09/04/21 8:54 AM) 62 bpm (09/04/21 8:00 AM) Blood Pressure [90-138/55-84 mm Hg] 157/86mm Hg *H* (09/04/21 12:15 PM) 157/86mm Hg *H* (09/04/21 11:00 AM) 179/86mm Hg *H* (09/04/21 8:54 AM) 176/86mm Hg *H* (09/04/21 8:54 AM) Respiratory Rate [16-30 br/min] 18 br/min (09/04/21 11:00 AM) 18 br/min (09/04/21 8:00 AM) 18 br/min (09/04/21 4:00 AM) Temperature [96.8-100.4 DegF] 97.3 DegF (09/04/21 11:00 AM) 97.8 DegF (09/04/21 8:00 AM) 98.4 DegF (09/04/21 4:00 AM) Mode of Delivery (Oxygen) Room air (09/04/21 11:00 AM) Room air (09/04/21 8:00 AM) Room air (09/04/21 4:00 AM) Blood pressure sites Arm, right (09/04/21 11:00 AM) Arm, right (09/04/21 8:00 AM) Arm, right (09/04/21 4:00 AM) Temperature Route Axillary (09/04/21 11:00 AM) Oral (09/04/21 8:00 AM) Oral (09/04/21 4:00 AM) Dry Weight 97.7 kg (09/02/21 11:41 AM) Dry Weight Obtained Via Patient lift hanging scale (09/02/21 11:41 AM)
--- OUTSIDE RECORDS SUMMARY | 2023-05-11 17:42 | XMS_ITS | Continuity of Care Document ---
Author Name Unknown Organization [facility] Address [address] [facility], [address] Floor, [address] [place] [id number]- Care Team Providers Care Early Childhood Services Coordinator Name Role Phone Nikolay LEDESMA, Jun Primary Care Physician [phone] Encounter [facility] [place] Date(s): 06/05/20 - 06/12/20 [facility] [address], [address], [address] [place] [id number] [facility] Attending Physician: Evette Segovia MD, Marisol Referring Physician: Radha LEDESMA , Neeru Freeman Allergies, Adverse Reactions, Alerts No Known Medication Allergies Medications amLODIPine 5 mg oral tablet 5 mg, 1, tablet, By Mouth, Daily, Refills 0, Maintenance, 06/05/20 9:51:00 EDT Start Date: 06/05/20 Status: Ordered atorvastatin 40 mg oral tablet 1 tablet = 40 mg, By Mouth, Daily, 0 Refills, Maintenance, 06/05/20 9:50:00 EDT Start Date: 06/05/20 Status: Ordered Eliquis 5 mg oral tablet 1 tablet = 5 mg, By Mouth, 2 times a day, 0 Refills, Maintenance, 06/05/20 9:50:00 EDT Start Date: 06/05/20 Status: Ordered lisinopril 40 mg oral tablet 1 tablet = 40 mg, By Mouth, Daily, 0 Refills, Maintenance, 06/05/20 9:50:00 EDT Start Date: 06/05/20 Status: Ordered metFORMIN 500 mg oral tablet 1 tablet = 500 mg, By Mouth, 2 times a day, 0 Refills, Maintenance, 06/05/20 9:49:00 EDT Start Date: 06/05/20 Status: Ordered pantoprazole 40 mg oral delayed release tablet 1 tablet = 40 mg, By Mouth, Daily, 0 Refills, Maintenance, 06/05/20 9:51:00 EDT Start Date: 06/05/20 Status: Ordered Vitamin D2 2000 intl units oral capsule By Mouth, Daily, 0 Refills, Maintenance, 06/05/20 9:51:00 EDT Start Date: 06/05/20 Status: Ordered Zoloft 100 mg oral tablet 1.5 tablet = 150 mg, By Mouth, Daily, 0 Refills, Maintenance, 06/05/20 9:48:00 EDT Start Date: 06/05/20 Status: Ordered Vital Signs Most recent to oldest [Reference Range]: 1 Oxygen Saturation [94-100 %] 100 % (06/05/20 9:34 AM) Pulse Rate [55-90 bpm] 70 bpm (06/05/20 9:34 AM) Blood Pressure [90-138/55-84 mm Hg] 178/ 91mm Hg *H* (06/05/20 9:34 AM) Temperature [96.8-100.4 DegF] 98.0 DegF (06/05/20 9:34 AM) Mode of Delivery (Oxygen) Room air (06/05/20 9:34 AM) Blood pressure sites Arm, right (06/05/20 9:34 AM) Social History Social History Type Response Sex Male
--- OUTSIDE RECORDS SUMMARY | 2023-05-11 17:42 | XMS_ITS | Continuity of Care Document ---
Author Name Unknown Organization [facility] ter Address [address] [place] [id number]- Care Team Providers Care Sports Therapist Name Role Phone Eliana LEDESMA, Elvis Vazquez Primary Care Physician [phone] [place] [facility] [place] 03/06/22 - 03/09/[address] [id number] Encounter Diagnosis Fall(Final) - 03/06/22 Generalized weakness(Final) - 03/06/22 Discharge Disposition: A-Transfer SNF Attending Physician: Anum Valdes MD Admitting Physician: Taras Bullard MD Referring Physician: Not on Staff, Referring MD Allergies, Adverse Reactions, Alerts No Known Allergies Immunizations Given and Recorded Vaccine Date Status Refusal Reason influenza virus vaccine, inactivated 05/15/20 Alfred rded Medications amLODIPine 10 mg oral tablet 10 mg, Tablet, By Mouth, 03/09/22 9:00:00 EDT Start Date: 03/09/22 Stop Date: 03/09/22 Status: Completed amLODIPine 10 mg oral tablet 10 mg, 1, tablet, By Mouth, Daily, # 30 tablet, Refills 0, Tot. Refills 0, Maintenance, 03/03/22 8:22:00 EDT, Route to Pharmacy Electronically, [facility]/pharmacy #[id number], Partial fill upon patient request if the prescription is for a schedule II opioid drug.... Start Date: 03/03/22 Status: Ordered apixaban = 5 mg, By Mouth, 2 times a day, 0 Refills, Maintenance, 03/03/22 8:23:00 EDT, Tablet, Partial fillupon patient request if the prescription is for a schedule II opioid drug. Start Date: 03/03/22 Status: Ordered atorvastatin 40 mg oral tablet 1 tablet = 40 mg, By Mouth, Daily, # 30 tablet, 5 Refills, Maintenance, 03/03/22 8:25:00 EDT, Tablet, [facility]/pharmacy #[id number], Partial fill upon patient request if the prescription is for a schedule II opioid drug., 184.7, cm, 03/03/22 7:32:00 EDT, Height,... Start Date: 03/03/22 Status: Ordered bisacodyl 10 mg rectal suppository 1 supp = 10 mg, Rectally, Daily, PRN Constipation, 0 Refills, Maintenance, 03/09/22 14:08:00 EDT, Suppository, Partial fill upon patient request if the prescription is for a schedule II opioid drug. Start Date: 03/09/22 Status: Ordered Coreg 12.5 mg oral tablet 12.5 mg, Tablet, By Mouth, 03/09/22 9:00:00 EDT Start Date: 03/09/22 Stop Date: 03/09/22 Status: Completed Coreg 12.5 mg oral tablet 12.5 mg, 1, tablet, By Mouth, 2 times a day, Refills 0, Maintenance, 03/03/22 8:23:00 EDT, Partial fill upon patient request if the prescription is for a schedule II opioid drug. Start Date: 03/03/22 Status: Ordered docusate-senna 50 mg-8.6 mg oral capsule 2 tablet, By Mouth, Daily, PRN Constipation, 0 Refills, Maintenance, 03/09/22 14:08:00 EDT, Capsule, Partial fill upon patient request if the prescription is for a schedule II opioid drug. Start Date: 03/09/22 Status: Ordered levothyroxine 50 mcg (0.05 mg) oral capsule 1 capsule = 50 mcg, By Mouth, Daily, 0 Refills, Maintenance, 03/06/22 16:20:00 EDT, Partial fill upon patient request if the prescription is for a schedule II opioid drug. Start Date: 03/06/22 Status: Ordered metFORMIN 500 mg oral tablet 1 tablet = 500 mg, By Mouth, 2 times a day with meals, 0 Refills, Maintenance, 03/06/22 16:21:00 EDT, Partial fill upon patient request if the prescription is for a schedule II opioid drug. Start Date: 03/06/22 Status: Ordered MiraLax Powder 1 pack/packet = 17 Gm, By Mouth, Daily, PRN Constipation, 0 Refills, Maintenance, 03/09/22 14:08:00EDT, Powder, Partial fill upon patient request if the prescription is for a schedule II opioid drug. Start Date: 03/09/22 Status: Ordered Nicotine = 21 mg, Topically, Daily, PRN Smoking Cessation, 0 Refills, Maintenance, 03/09/22 10:00:00 EDT, Patch, Partial fill upon patient request if the prescription is for a schedule II opioid drug. Start Date: 03/09/22 Status: Ordered Symbicort 160mcg/4.5mcg Inhaler 2, puffs, Inhalation, 2 times a day, Refills 0, Maintenance, 03/06/22 16:20:00 EDT Start Date: 03/06/22 Status: Ordered Tums 500 mg oral tablet, chewable 1,000 mg, 2, tablet, Chew, Every 6 hours, PRN, Maintenance, Dyspepsia, 03/02/22 15:56:00 EDT, Partial fill upon patient request if the prescription is for a schedule II opioid drug. Start Date: 03/02/22 Status: Ordered Zoloft 100 mg oral tablet 1 tablet = 100 mg, By Mouth, Daily, # 30 tablet, 0 Refills, Maintenance, 03/03/22 8:25:00 EDT, Tablet, [facility]/pharmacy #[id number], Partial fill upon patient request if the prescription is for a schedule II opioid drug., 184.7, cm, 03/03/22 7:32:00 EDT, Height... Start Date: 03/03/22 Status: Ordered Problem List Condition Effective Dates Status Health Status Inform ant Chronic kidney disease stage 3B(Confirmed) Active Depression(Confirmed) Active Essential hypertension(Confirmed) Active GERD - Gastro-esophageal ref lux disease(Confirmed) Active History of COVID-19(Confirmed) Active History of embolic stroke du e to PFO with left hemiparesis(Confirmed) Active Hyperlipidemia(Confirmed) Active Hypothyroidism(Confirmed) Active Nonadherence with treatment(Confirmed) Active Do not intubate, perform CPR , or defibrillate(Confirmed) Active PFO - Patent foramen ovale(Confirmed) Active Tobacco dependence(Confirmed) Active Type 2 diabetes mellitus wit h complication(Confirmed) Active Vital Signs Most recent to oldest [Reference Range]: 1 2 3 Height 185 cm (03/09/22 11:23 AM) 185 cm (03/08/22 10:22 AM) Weight 81.7 kg (03/08/22 10:22 AM) Oxygen Saturation [94-100 %] 97 % (03/09/22 4:00 PM) 97 % (03/09/22 7:00 AM) 98 % (03/09/22 12:00 AM) Pulse Rate [55-90 bpm] 76 bpm (03/09/22 4:00 PM) 85 bpm (03/09/22 8:58 AM) 61 bpm (03/09/22 7:00 AM) Body Mass Index [18.5-24.99] 23.87 (03/08/22 10:22 AM) Blood Pressure [90-138/55-84 mm Hg] 163/83mm Hg *H* (03/09/22 4:00 PM) 143/110mm Hg *H* (03/09/22 8:58 AM) 143/110mm Hg *H* (03/09/22 8:57 AM) Respiratory Rate [16-30 br/min] 18 br/min (03/09/22 4:00 PM) 16 br/min (03/09/22 7:00 AM) 18 br/min (03/09/22 4:00 AM) Temperature [96.8-100.4 DegF] 97.8 DegF (03/09/22 4:00 PM) 98.1 DegF (03/09/22 7:00 AM) 98.0 DegF (03/09/22 4:00 AM) Liters per Minute 0 L/min (03/06/22 3:33 PM) Mode of Delivery (Oxygen) Room air (03/09/22 4:00 PM) Room air (03/09/22 7:00 AM) Room air (03/09/22 4:00 AM) Blood pressure sites Arm, left (03/09/22 4:00 PM) Arm, right (03/09/22 7:00 AM) Arm, right (03/09/22 4:00 AM) Temperature Route Axillary (03/09/22 4:00 PM) Oral (03/09/22 7:00 AM) Oral (03/09/22 4:00 AM) Dry Weight 81.7 kg (03/08/22 10:22 AM) Weight Obtained Via Bed scale (03/08/22 10:22 AM) Dry Weight Obtained Via Bed scale (03/08/22 10:22 AM) Social History Social History Type Response Smoking Status 10 or more cigarette s (1/2 pack or more)/day in last 30 days entered on: 03/02/22 Sex Male
--- OUTSIDE RECORDS SUMMARY | 2023-05-11 17:42 | XMS_ITS | Continuity of Care Document ---
Author Name Unknown Organization [facility] Address [address] [facility], [address]r d Floor, [address] [place] [id number]- Care Team Providers Care Needlemaker Name Role Phone Jun Link MD Primary Care Physician [phone] [place] [facility] [place]20 [facility] [address], 3rd Floor, [address] [place] [id number] Attending Physician: Ruthy Walker Admitting Physician: AdmRuthy larry Referring Physician: Admtr, Ar8 Allergies, Adverse Reactions, Alerts No Known Medication [...] 9:48:00 EDT Start Date: 06/05/20 Status: Ordered Social History Social History Type Response Sex Male
--- OUTSIDE RECORDS SUMMARY | 2023-05-11 17:42 | XMS_ITS | Continuity of Care Document ---
Author Name Unknown Organization [facility] ter Address [address] [place] [id number]- Care Team Providers Care Canned Food Reconditioning Inspector Name Role Phone Eliana LEDESMA, Elvis Vazquez Primary Care Physician [place] [facility] [place]): [place] - 03/15/[address] [address]- Encounter Diagnosis Acute kidney injury superimposed on CKD(Final) - 03/12/22 Discharge Disposition: Transfer Snf Care Attending Physician: Rosibel Loco MD Admitting Physician: Tahir Mills MD Referring Physician: Not on Staff, Referring MD Allergies, Adverse Reactions, Alerts No Known Allergies Immunizations Given and Recorded Vaccine Date Status Refusal Reason influenza virus vaccine, inactivated 05/15/20 Alfred rded Medications acetaminophen 325 mg oral tablet 650 mg, 2, tablet, By Mouth, Every 4 hours, PRN, Maintenance, as needed for fever/pain, 03/13/22 8:22:00 EDT, Partial fill upon patient request if the prescription is for a schedule II opioid drug. Start Date: 03/13/22 Status: Ordered amLODIPine 10 mg oral tablet 10 mg, Tablet, By Mouth, 03/15/22 9:00:00 EDT Start Date: 03/15/22 Stop Date: 03/15/22 Status: Completed amLODIPine 10 mg oral tablet 10 mg, 1, tablet, By Mouth, Daily, # 30 tablet, Refills 0, Tot. Refills 0, Maintenance, 03/03/22 8:22:00 EDT, Route to Pharmacy Electronically, [facility]/pharmacy #[id number], Partial fill upon patient request if the prescription is for a schedule II opioid drug.... Start Date: 03/03/22 Status: Ordered atorvastatin 40 mg oral tablet 1 tablet = 40 mg, By Mouth, Daily, # 30 tablet, 5 Refills, Maintenance, 03/03/22 8:25:00 EDT, Tablet, [facility]/pharmacy #[id number], Partial fill upon patient request if the prescription is for a schedule II opioid drug., 184.7, cm, 03/03/22 7:32:00 EDT, Height,... Start Date: 03/03/22 Status: Ordered bisacodyl 10 mg rectal suppository 1 supp = 10 mg, Rectally, Daily, PRN as needed for constipation, 0 Refills, Maintenance, 03/09/22 14:08:00 EDT, Suppository, Partial fill upon patient request if the prescription is for a schedule IIopioid drug. Start Date: 03/09/22 Status: Ordered Coreg 12.5 mg oral tablet 25 mg, Tablet, By Mouth, 03/15/22 9:00:00 EDT Start Date: 03/15/22 Stop Date: 03/15/22 Status: Completed Coreg 12.5 mg oral tablet 25 mg, 2, tablet, By Mouth, 2 times a day, Refills 0, Maintenance, 03/15/22 11:09:00 EDT, Partial fill upon patient request if the prescription is for a schedule II opioid drug. Start Date: 03/15/22 Status: Ordered docusate-senna 50 mg-8.6 mg oral capsule 2 tablet, By Mouth, Daily, PRN Constipation, 0 Refills, Maintenance, 03/09/22 14:08:00 EDT, Capsule, Partial fill upon patient request if the prescription is for a schedule II opioid drug. Start Date: 03/09/22 Status: Ordered Eliquis 5 mg oral tablet 1 tablet = 5 mg, By Mouth, 2 times a day, Maintenance, 03/13/22 8:19:00 EDT, Tablet, Partial fill upon patient request if the prescription is for a schedule II opioid drug. Start Date: 03/13/22 Status: Ordered Fleet Enema 19 gm-7 gm rectal enema 1 each, Rectally, Once, PRN for constipation, Maintenance, 03/13/22 8:22:00 EDT, Enema, Partial fill upon patient request if the prescription is for a schedule II opioid drug. Start Date: 03/13/22 Status: Ordered Humalog 100 u/ml subcutaneous injection 2-8 units, Subcutaneous Infusion, 3 times a day before meals, Inject as per sliding scale: 200-249=2 units 250-299=4 units 300-349=6 units 350-399=8 units 400-999=call MD, Maintenance, 03/13/22 8:26:00 EDT, Partial fill upon patient request if th... Start Date: 03/13/22 Status: Ordered levothyroxine 0.05 mg oral tablet 1 tablet = 50 mcg, By Mouth, Daily, Maintenance, 03/13/22 8:20:00 EDT, Tablet, Partial fill upon patient request if the prescription is for a schedule II opioid drug. Start Date: 03/13/22 Status: Ordered lisinopril 5 mg oral tablet 5 mg, Tablet, By Mouth, 03/15/22 11:30:00 EDT Start Date: 03/15/22 Stop Date: 03/15/22 Status: Completed lisinopril 5 mg oral tablet 5 mg, 1, tablet, By Mouth, Daily, Refills 0, Maintenance, 03/15/22 11:09:00 EDT, Partial fill upon patient request if the prescription is for a schedule II opioid drug. Start Date: 03/15/22 Status: Ordered metFORMIN 500 mg oral tablet [...] opioid drug. Start Date: 03/09/22 Status: Ordered Senna 8.6 mg oral tablet 8.6 mg, 1, tablet, By Mouth, Daily, PRN, Maintenance, as needed for constipation, 03/13/22 8:22:00 EDT, Partial fill upon patient request if the prescription is for a schedule II opioid drug. Start Date: 03/13/22 Status: Ordered Symbicort 160mcg/4.5mcg Inhaler 2, puffs, [...] 0 Refills, Maintenance, 03/03/22 8:25:00 EDT, Tablet, [id number], Partial fill upon patient request if [...] 2 diabetes mellitus wit h complication(Confirmed) Active Results Radiology Reports * Exam Date Time Procedure Performing Provider Status 03/15/22 12:32 PM Esophagus Barium Swallow Benson Villatoro rta; Auth (Verified) Notes: (Esophagus Barium Swallow) Reason For Exam: Choking During Eating;Choking During Eating RESULT: Esophagus Barium Swallow PROCEDURE: Esophagus Barium Swallow CLINICAL INDICATION: Reason: Choking During Eating; Clinical Question(s): Dysmotility COMPARISONS: None FLUOROSCOPY TIME: 2 minutes 42 seconds EXPOSURE: 1891.8 uGym2 TECHNIQUE: Barium contrast esophagram was performed by Samuel Joel PA-C. FINDINGS: Limited rn cardiac rehab is noted projecting over the left hemithorax. This is probably a loop recorder. Swallow: Normal oral and pharyngeal phases with no laryngeal penetration or subglottic aspiration. Esophagus: Normal in contour and mucosal appearance. Some tertiary contractions of the distal half the esophagus are seen with proximal escape of barium bolus noted. Nothing diagnostic of hiatal hernia. Spontaneous gastroesophageal reflux was appreciated during the study. A 13 mm barium tablet passed unimpeded into the stomach. No evidence of esophageal web, narrowing or outpouching. No esophageal obstruction. The stomach and proximal duodenum are grossly normal. Contrast promptly empties from the stomach into a nondilated duodenum. No gastric outlet obstruction. IMPRESSION: Spontaneous gastroesophageal reflux. Mild esophageal dysmotility. By undersigning and finalizing the report, the attending radiologist confirms he/she has personallyreviewed and interpreted the images and agrees with the description of the findings. I have personally reviewed the images and I agree with this report. WSN: [id number] Ordering Physician: Rosibel Loco Dictated By: Elliott Francis Dictated Date/Time: 03/15/22 1:45 pm Reviewed By: Derek Jones MD, V Signed By: Derek Jones MD, V Signed Date/Time: 03/15/22 1:50 pm Transcribed By: KERI Transcribed Date/Time: 03/15/22 1:27 pm Vital Signs Most recent to oldest [Reference Range]: 1 2 3 Height 186 cm (03/15/22 5:34 AM) 186 cm (03/15/22 5:06 AM) 186 cm (03/14/22 8:08 PM) Weight 82.1 kg (03/13/22 1:24 PM) 81.7 kg (03/13/22 10:33 AM) Oxygen Saturation [94-100 %] 95 % (03/15/22 1:00 PM) 97 % (03/15/22 5:06 AM) 97 % (03/14/22 8:08 PM) Pulse Rate [55-90 bpm] 63 bpm (03/15/22 1:00 PM) 66 bpm (03/15/22 6:07 AM) 66 bpm (03/15/22 5:34 AM) Body Mass Index [18.5-24.99] 23.73 (03/13/22 1:24 PM) Blood Pressure [90-138/55-84 mm Hg] 151/86mm Hg *H* (03/15/22 1:19 PM) 144/81mm Hg *H* (03/15/22 11:00 AM) 171/85mm Hg *H* (03/15/22 8:36 AM) Respiratory Rate [16-30 br/min] 17 br/min (03/15/22 1:00 PM) 18 br/min (03/15/22 5:06 AM) 19 br/min (03/14/22 8:08 PM) Temperature [96.8-100.4 DegF] 98.4 DegF (03/15/22 1:00 PM) 98.2 DegF (03/15/22 5:06 AM) 98.2 DegF (03/14/22 8:08 PM) Liters per Minute 2 L/min (03/14/22 8:08 PM) Mode of Delivery (Oxygen) Room air (03/15/22 1:00 PM) Room air (03/15/22 5:06 AM) Nasal cannula (03/14/22 8:08 PM) Blood pressure sites Arm, left (03/15/22 1:00 PM) Arm, right (03/15/22 5:34 AM) Arm, right (03/15/22 5:06 AM) Temperature Route Oral (03/15/22 1:00 PM) Oral (03/15/22 5:06 AM) Oral (03/14/22 8:08 PM) Dry Weight 82.1 kg (03/13/22 1:24 PM) Social History Social History Type Response Smoking Status 10 or more cigarette s (1/2 pack or more)/day in last 30 days entered on: 03/02/22 Sex Male
--- OUTSIDE RECORDS SUMMARY | 2023-05-11 17:42 | XMS_ITS | Patient Health Record ---
Author Name Unknown [facility] Address [address] [facility] [place] [address] Care Team Providers Care Budget Technician Name Role Phone Stanislav LDEESMA, Hakeem Primary Care Provider Jarred Arciniega Unavailable [phone] Ritika Valladares Unavailable [phone] ALLERGIES No Known Allergies RESULTS Component Value Reference Range Notes HEMOGLOBIN A1C (GLYCOHEMOGLO BIN) Reviewed date:07/08/2022 12:08:05 PM Interpretation: Performing Lab: Notes/Report: TOTAL HEMOGLOBIN (HGBA1C) HEMOGLOBIN A1C (HH) HEMOGLOBIN A1C % (HH) 5.5 ESTIMATED AVG GLUCOSE HEMOGLOBIN A1C (GLYCOHEMOGLO BIN) Reviewed date:01/02/2023 02:03:20 PM Interpretation: Performing Lab: Notes/Report: TOTAL HEMOGLOBIN (HGBA1C) HEMOGLOBIN A1C (HH) HEMOGLOBIN A1C % (HH) 6.7 ESTIMATED AVG GLUCOSE HEMOGLOBIN A1C (GLYCOHEMOGLO BIN) Reviewed date:03/23/2023 08:51:15 AM Interpretation: Performing Lab: Notes/Report: TOTAL HEMOGLOBIN (HGBA1C) HEMOGLOBIN A1C (HH) HEMOGLOBIN A1C % (HH) 6.9 ESTIMATED AVG GLUCOSE REASON FOR REFERRAL No Information MEDICATIONS Medication SIG (Take, Route, Frequency, Duration) Notes Start Date End Date Status ARIPiprazole 2 MG Oral for 30 Active Ondansetron 4 MG Oral for 5 No t-Taking amLODIPine Besylate 10 MG Oral for 90 Active Symbicort 160-4.5 MCG/ACT Inhalation for 30 Not-Taking Ciclopirox 0.77 % 1 application to affected area Externally Twice a day to effected nails for 30 days 03/23/2023 Active Carvedilol 12.5 MG TAKE 1 TABLET BY LILIBETH TH TWICE A DAY WITH FOOD FOR 90 DAYS Oral for 90 Active metFORMIN HCl 500 MG Oral for 90 Not-Taking Atorvastatin Calcium 40 MG TAKE 1 TABLET BY MOUTH EVERY DAY Oral for 90 Active Sertraline HCl 100 MG Oral for 90 Not-Taking Extra Depth Diabetic Shoes with 3 Pair Custom heat-molded multi-density innersoles for 1 year Dx: Active Pantoprazole Sodium 40 MG Oral for 90 Active Keflex Active Cipro 500 MG 1 tablet Orally ever y 12 hrs for 10 days 01/02/2023 Not-Taking Amoxicillin-Pot Clavulanate 875 875-125 MG one tab Orally every 12 hrs for 10 day(s) Active NIFEdipine ER Osmotic Release 30 MG Oral for 30 Not-Taking Levothyroxine Sodium 50 MCG Oral for 90 Active Jardiance 10 MG TAKE 1 TABLET BY LILIBETH TH EVERY DAY FOR 30 DAYS Oral for 30 Active hydrALAZINE HCl 25 MG Oral for 30 Not-Taking Eliquis 5 MG Oral for 30 Activ e SOCIAL HISTORY Tobacco Use: Social History Observation Description Date Details (start date - stop date) Former Smoker NA - NA Sex Assigned At : Social History Observation Description Sex Assigned At Unknown Tobacco Use/Smoking Question Answer Notes Are you a: former smoker Additional Findings: Tobacco Non-User Current no n-smoker Alcohol Screen Question Answer Notes Did you have a drink containing alcohol in the p ast year? No Points 0 Interpretation Negative Tobacco use other than smoking: Question Answer Notes Are you an other tobacco user? 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) Active confirmed Problem Other hammer toe(s) (acquired), right foot (M20.41) Active confirmed Acquired hamme r toe of right foot (4894990172497391 ) Problem Type 2 diabetes mellitus with diabetic polyneuropathy (E11.42) Active confirmed Polyneuropathy due to type 2 diabetes mellitus (975034989) PROCEDURES Procedure Date Ordered Date Performed Result Body Sit e 63116-YIEM SKIN LESIONS, OVER 4 07/08/2022 N/A 04340-PHOX SKIN LESIONS, 2 TO 4 01/02/2023 N/A 86444-YCHHBEH SKIN/TISSUE 01/18/2023 N/A 31994-MGNBQAM SKIN/TISSUE 03/23/2023 N/A 55806-ZFHM SKIN LESIONS, 2 TO 4 03/23/2023 N/A Encounters Encounter Location Date Provider Diagnosis [address] [address] 07/05/[address] [address] 07/07/[address] [address] 07/08/2022 Jarred Oleary Tinea unguium B35.1 ; Pain in right toe(s) M79.674 ; Pain in left toe(s) M79.675 ; Type 2 diabetes mellitus with diabetic polyneuropathy E11.42 ; Skin disease L98.9 ; Ingrowing nail L60.0 ; Xerosis cutis L85.3 and Left foot drop M21.[address] [address] 07/08/[address] [address] 07/12/[address] [address] 08/11/[address] [address] 10/05/[address] [address] 10/07/[address] [address] 10/28/[address] [address] 01/02/2023 Jarred Oleary Tinea unguium B35.1 ; Pain in right toe(s) M79.674 ; Pain in left toe(s) M79.675 ; Type 2 diabetes mellitus with diabetic polyneuropathy E11.42 ; Skin disease L98.9 ; Ingrowing nail L60.0 ; Xerosis cutis L85.3 ; Left foot drop M21.372 ; Cellulitis of left toe L03.032 ; Cutaneous abscess of left foot L02.612 and Non-pressure chronic ulcer of other part of right foot with fat layer exposed L97.[address] [address] 01/02/[address] [address] 01/11/[address] [address] 01/18/2023 Jarred Oleary Tinea unguium B35.1 ; Pain in right toe(s) M79.674 ; Pain in left toe(s) M79.675 ; Type 2 diabetes mellitus with diabetic polyneuropathy E11.42 ; Skin disease L98.9 ; Ingrowing nail L60.0 ; Xerosis cutis L85.3 ; Left foot drop M21.372 ; Non-pressure chronic ulcer of other part of right foot with fat layer exposed L97.512 ; Cellulitis of right toe L03.031 and Other hammer toe(s) (acquired), right foot M20.41 [facility] [address] 01/18/[address] [address] 01/18/2023 [facility] [address] 01/18/2023 [facility] [address] [facility]18[facility] [address] [address] [facility]/07/[address] [address] 02/08/2023 Jarred Oleary Tinea unguium B35.1 ; Pain in right toe(s) M79.674 ; Pain in left toe(s) M79.675 ; Type 2 diabetes mellitus with diabetic polyneuropathy E11.42 ; Skin disease L98.9 ; Ingrowing nail L60.0 ; Xerosis cutis L85.3 ; Left foot drop M21.372 ; Non-pressure chronic ulcer of other part of right foot with fat layer exposed L97.512 ; Cellulitis of right toe L03.031 and Other hammer toe(s) (acquired), right foot M20.41 [facility] [address] [place] [address] 03/06/2023 [facility] [address] 03/09/[facility] [address] 03/23/2023 [facility] Tinea unguium B35.1 ; Pain in right toe(s) M79.674 ; Pain in left toe(s) M79.675 ; Type 2 diabetes mellitus with diabetic polyneuropathy E11.42 ; Skin disease L98.9 ; Ingrowing nail L60.0 ; Xerosis cutis L85.3 ; Left foot drop M21.372 ; Non-pressure chronic ulcer of other part of right foot with fat layer exposed L97.512 ; Other hammer toe(s) (acquired), right foot M20.41 and Tinea pedis B35.3 ASSESSMENTS Encounter Date Diagnosis Assessment Notes Treatment Notes Treatment Clinical Notes 07/08/2022 Pain in right toe(s) (ICD-10 - M79.674) 01/02/2023 Tinea unguium (ICD-1 0 - B35.1) 07/08/2022 Tinea unguium (ICD-1 0 - B35.1) 01/02/2023 Pain in right toe(s) (ICD-10 - M79.674) 01/18/2023 Tinea unguium (ICD-1 0 - B35.1) 01/18/2023 Pain in right toe(s) (ICD-10 - M79.674) 02/08/2023 Tinea unguium (ICD-1 0 - B35.1) 03/23/2023 Tinea unguium (ICD-1 0 - B35.1) 03/23/2023 Pain in right toe(s) (ICD-10 - M79.674) 03/23/2023 Pain in left toe(s) (ICD-10 - M79.675) 02/08/2023 Pain in right toe(s) (ICD-10 - M79.674) 01/18/2023 Pain in left toe(s) (ICD-10 - M79.675) 01/02/2023 Pain in left toe(s) (ICD-10 - M79.675) 07/08/2022 Pain in left toe(s) (ICD-10 - M79.675) 07/08/2022 Type 2 diabetes mellitus with diabetic polyneuropathy (ICD-10 - E11.42) Patient Educated with: DIABETIC FOOT CARE INSTRUCTIONS.pdf (DIABETIC FOOT CARE INSTRUCTIONS.pdf ) 01/02/2023 Type 2 diabetes mellitus with diabetic polyneuropathy (ICD-10 - E11.42) 01/18/2023 Type 2 diabetes mellitus with diabetic polyneuropathy (ICD-10 - E11.42) 02/08/2023 Pain in left toe(s) (ICD-10 - M79.675) 03/23/2023 Type 2 diabetes mellitus with diabetic polyneuropathy (ICD-10 - E11.42) 03/23/2023 Skin disease (ICD-10 - L98.9) 02/08/2023 Type 2 diabetes mellitus with diabetic polyneuropathy (ICD-10 - E11.42) 01/18/2023 Skin disease (ICD-10 - L98.9) 01/02/2023 Skin disease (ICD-10 - L98.9) 07/08/2022 Skin disease (ICD-10 - L98.9) 07/08/2022 Ingrowing nail (ICD-10 - L60.0) 01/02/2023 Ingrowing nail (ICD-10 - L60.0) 01/18/2023 Ingrowing nail (ICD-10 - L60.0) 03/23/2023 Ingrowing nail (ICD-10 - L60.0) 02/08/2023 Skin disease (ICD-10 - L98.9) 03/23/2023 Xerosis cutis (ICD-1 0 - L85.3) 01/18/2023 Xerosis cutis (ICD-1 0 - L85.3) 02/08/2023 Ingrowing nail (ICD-10 - L60.0) 01/02/2023 Xerosis cutis (ICD-1 0 - L85.3) 07/08/2022 Xerosis cutis (ICD-1 0 - L85.3) 01/02/2023 Left foot drop (ICD-10 - M21.372) 07/08/2022 Left foot drop (ICD-10 - M21.372) 02/08/2023 Xerosis cutis (ICD-1 0 - L85.3) 01/18/2023 Left foot drop (ICD-10 - M21.372) 03/23/2023 Left foot drop (ICD-10 - M21.372) 03/23/2023 Non-pressure chronic ulcer of other part of right foot with fat layer exposed (ICD-10 - L97.512) 02/08/2023 Left foot drop (ICD-10 - M21.372) 01/18/2023 Non-pressure chronic ulcer of other part of right foot with fat layer exposed (ICD-10 - L97.512) 01/02/2023 Cellulitis of left toe (ICD-10 - L03.032) 01/02/2023 Cutaneous abscess of left foot (ICD-10 - L02.612) 01/18/2023 Cellulitis of right toe (ICD-10 - L03.031) 02/08/2023 Non-pressure chronic ulcer of other part of right foot with fat layer exposed (ICD-10 - L97.512) 03/23/2023 Other hammer toe(s) (acquired), right foot (ICD-10 - M20.41) 03/23/2023 Tinea pedis (ICD-10 - B35.3) 02/08/2023 Cellulitis of right toe (ICD-10 - L03.031) 01/18/2023 Other hammer toe(s) (acquired), right foot (ICD-10 - M20.41) 01/02/2023 Non-pressure chronic ulcer of other part of right foot with fat layer exposed (ICD-10 - L97.512) 02/08/2023 Other hammer toe(s) (acquired), right foot (ICD-10 - M20.41) PLAN OF TREATMENT Pending Test Test Name Order Date X ray : Foot, right 3V 01/18/2023 22131-PUZGOMO SKIN/TISSUE 03/23/2023 20485-SWKAOVE SKIN/TISSUE 01/18/2023 07832-EQKG SKIN LESIONS, OVER 4 07/08/20 22 63608-HDWA SKIN LESIONS, 2 TO 4 03/23/20 23 37224-BAGN SKIN LESIONS, 2 TO 4 01/03/20 23 Next Appt Details Provider Name:Jarred Oleary, 06/01/2023 09:00:00 AM, [address] [place] [address], [phone], Insurance Providers Payer Name Payer Address Payer Phone Subscriber Number Group Number Insured Name Patient Relationship to Insured Coverage Start Date Coverage End Date [facility] [address] [place] [address] [id number] Jacob Loco Self - patient is the insured MEDICAL (GENERAL) HISTORY Surgical History Surgery Date(Month/Year) tumor removal 1983 gall bladder 2002
--- OUTSIDE RECORDS SUMMARY | 2023-05-11 17:42 | XMS_ITS | Continuity of Care Document ---
Author Name Unknown Organization [facility] ter Address [address] [place] [id number]- Care Team Providers Care Supervisor Finish End Name Role Phone Eliana LEDESMA, Elvis Vazquez Primary Care Physician [phone] Encounter [facility] Date(s): 03/02/22 - 03/03/[address] [address]- Encounter Diagnosis Syncope(Final) - 03/02/22 Acute kidney injury(Final) - 03/02/22 High anion gap metabolic acidosis(Final) - 03/02/22 Discharge Disposition: A-D/C Home Attending Physician: Zari Lees MD Admitting Physician: Frankie Mendiola MD Referring Physician: Not on Staff, Referring MD Allergies, Adverse Reactions, Alerts No Known Allergies Immunizations Given and Recorded Vaccine Date Status Refusal Reason influenza virus vaccine, inactivated 05/15/20 Alfred rded Medications amLODIPine 10 mg oral tablet 10 mg, 1, tablet, By Mouth, Daily, # 30 tablet, Refills 0, Tot. Refills 0, Maintenance, 03/03/22 8:22:00 EDT, Route to Pharmacy Electronically, [facility]/pharmacy #[id number], Partial fill upon patient [...] 5 Refills, Maintenance, 03/03/22 8:25:00 EDT, Tablet, [facility]/pharmacy #[id number], Partial fill upon patient request if the prescription is for a schedule II opioid drug., 184.7, cm, 03/03/22 7:32:00 EDT, Height,... Start Date: 03/03/22 Status: Ordered Coreg 12.5 mg oral tablet 12.5 mg, Tablet, By Mouth, 03/03/22 9:00:00 EDT Start Date: 03/03/22 Stop Date: 03/03/22 Status: Completed Coreg 12.5 mg oral tablet 12.5 mg, 1, tablet, By Mouth, 2 times a day, Refills 0, Maintenance, 03/03/22 8:23:00 EDT, Partial fill upon patient request if the prescription is for a schedule II opioid drug. Start Date: 03/03/22 Status: Ordered levothyroxine 50 mcg (0.05 mg)/mL oral solution 1 mL = 50 mcg, By Mouth, Daily, # 30 mL, 0 Refills, Maintenance, 03/03/22 8:24:00 EDT, [facility]/pharmacy#[id number], Partial fill upon patient request if the prescription is for a schedule II opioid drug., 184.7, cm, 03/03/22 7:32:00 EDT, Height, 97.7, kg, 0... Start Date: 03/03/22 Status: Ordered Tums 500 mg oral tablet, [...] 0 Refills, Maintenance, 03/03/22 8:25:00 EDT, Tablet, [facility]/pharmacy #[id number], Partial fill upon patient [...] diabetes mellitus wit h complication(Confirmed) Active Results Orders for Microbiology Reports Name Date Blood Culture (BLOOD CULTURE) 03/02/22 Microbiology Reports TEST:Blood Culture STATUS:Unauthenticated BODY SITE: SOURCE:Blood COLLECTED DATE/TIME:03/02/22 11:31 AM Blood Culture SPECIMEN DESCRIPTION : BLOOD SPECIAL REQUESTS : NONE CULTURE : NO GROWTH AFTER 24 HOURS REPORT STATUS : PRELIMINARY REPORT Vital Signs Most recent to oldest [Reference Range]: 1 2 3 Height 184.7 cm (03/03/22 12:17 PM) 184.7 cm (03/03/22 10:45 AM) 184.7 cm (03/03/22 7:32 AM) Weight 85.4 kg (03/02/22 11:27 PM) 97.7 kg (03/02/22 7:00 PM) Oxygen Saturation [94-100 %] 100 % (03/03/22 7:32 AM) 100 % (03/03/22 4:35 AM) 98 % (03/03/22 12:00 AM) Pulse Rate [55-90 bpm] 75 bpm (03/03/22 10:45 AM) 77 bpm (03/03/22 10:03 AM) 70 bpm (03/03/22 7:32 AM) Body Mass Index [18.5-24.99] 28.64 *H* (03/02/22 7:00 PM) Blood Pressure [90-138/55-84 mm Hg] 130/75mm Hg (03/03/22 12:17 PM) 148/90mm Hg *H* (03/03/22 10:45 AM) 180/102mm Hg *H* (03/03/22 10:03 AM) Respiratory Rate [16-30 br/min] 20 br/min (03/03/22 7:32 AM) 20 br/min (03/03/22 4:35 AM) 20 br/min (03/03/22 12:00 AM) Temperature [96.8-100.4 DegF] 98.5 DegF (03/03/22 7:32 AM) 97.9 DegF (03/03/22 4:35 AM) 98.2 DegF (03/03/22 12:00 AM) Mode of Delivery (Oxygen) Room air (03/03/22 7:32 AM) Room air (03/03/22 4:35 AM) Room air (03/03/22 12:00 AM) Blood pressure sites Arm, right (03/03/22 12:17 PM) Arm, right (03/03/22 10:45 AM) Arm, left (03/03/22 7:32 AM) Temperature Route Oral (03/03/22 7:32 AM) Oral (03/03/22 4:35 AM) Oral (03/03/22 12:00 AM) Dry Weight 97.7 kg (03/02/22 7:00 PM) Social History Social History Type Response Smoking Status 10 or more cigarette s (1/2 pack or more)/day in last 30 days entered on: 03/02/22 Sex Male
--- OUTSIDE RECORDS SUMMARY | 2023-05-11 17:43 | XMS_ITS | Patient Health Record ---
Author Name Unknown Organization [address] [facility] Address [address] [facility] [address] [place] [address] Care Team Providers Care Investment Sales Assistant Name Role Phone KEISHA WILKERSON Unavailable [phone] JORDY KENNEDY Unavailable [phone] ALLERGIES No Known Allergies RESULTS Component Value Reference Range Notes LIPID PANEL, STANDARD Reviewed date:06/02/2022 08:23:02 AM Interpretation: Performing Lab:NL2, [facility] [address], [address], [place] Bradford Lynch Notes/Report: 0; 0; 0; 0; 0; 0 FASTING:YES FASTING: YES CHOLESTEROL, TOTAL 258 <200 mg/dL HDL CHOLESTEROL 61 > OR = 40 mg/dL TRIGLYCERIDES 91 <150 mg/dL LDL-CHOLESTEROL 176 Reference range: <100 Desirable range <100 mg/dL for primary prevention; <70 mg/dL for patients with CHD or diabetic patients with > or = 2 CHD risk factors. LDL-C is now calculated using the Aman-Jony calculation, which is a validated novel method providing better accuracy than the Friedewald equation in the estimation of LDL-C. Aman SS et al. FIGUEROA. 2013;310(19): 3764-2927 (http://education.[employer]/faq/BVI715) CHOL/HDLC RATIO 4.2 <5.0 (calc) NON HDL CHOLESTEROL 197 <130 mg/dL (calc) For patients with diabetes plus 1 major ASCVD risk factor, treating to a non-HDL-C goal of <100 mg/dL (LDL-C of <70 mg/dL) is considered a therapeutic option. COMPREHENSIVE METABOLIC PANE L Reviewed date:06/02/2022 08:16:50 AM Interpretation: Performing Lab:NL2, [address], [address], [place]yhxhhgnccjGK[address] Brafdord Lynch Notes/Report: 0; 0; 0; 0; 0; 0 FASTING:YES FASTING: YES GLUCOSE 100 65-99 mg/dL Fasting reference interval For someone without known diabetes, a glucose value between 100 and 125 mg/dL is consistent with prediabetes and should be confirmed with a follow-up test. UREA NITROGEN (BUN) 43 7-25 mg/dL CREATININE 2.52 0.70-1.30 mg/dL EGFR 30 > OR = 60 mL/min/1.73m2 The eGFR is based on the CKD-EPI 2020 equation. To calculate the new eGFR from a previous Creatinine or Cystatin C result, go to https://www.kidney.org/pr ofessionals/ kdoqi/gfr%5Fcalculator BUN/CREATININE RATIO 17 6-22 (calc) SODIUM 137 135-146 mmol/L POTASSIUM 4.6 3.5-5.3 mmol/L CHLORIDE 105 98-110 mmol/L CARBON DIOXIDE 24 20-32 mmol/L CALCIUM 8.7 8.6-10.3 mg/dL PROTEIN, TOTAL 6.6 6.1-8.1 g/dL ALBUMIN 4.0 3.6-5.1 g/dL GLOBULIN 2.6 1.9-3.7 g/dL (calc) ALBUMIN/GLOBULIN RATIO 1.5 1.0-2.5 (calc) BILIRUBIN, TOTAL 0.3 0.2-1.2 mg/dL ALKALINE PHOSPHATASE 64 35-144 U/L AST 10 10-35 U/L ALT 12 9-46 U/L CBC (INCLUDES DIFF/PLT) Reviewed date:06/02/2022 08:23:50 AM Interpretation: Performing Lab:NL2, [facility], [address], [place] Bradford Lynch Notes/Report: 0; 0; 0; 0; 0; 0 FASTING:YES FASTING: YES WHITE BLOOD CELL COUNT 7.0 3.8-10.8 Thousand/ uL RED BLOOD CELL COUNT 3.93 4.20-5.80 Million/uL HEMOGLOBIN 11.5 13.2-17.1 g/dL HEMATOCRIT 35.3 38.5-50.0 % MCV 89.8 80.0-100.0 fL MCH 29.3 27.0-33.0 pg MCHC 32.6 32.0-36.0 g/dL RDW 12.9 11.0-15.0 % PLATELET COUNT 388 140-400 Thousand/uL MPV 10.3 7.5-12.5 fL ABSOLUTE NEUTROPHILS [phone] cells/uL ABSOLUTE LYMPHOCYTES 282 879-2202 cells/uL ABSOLUTE MONOCYTES 441 200-950 cells/uL ABSOLUTE EOSINOPHILS 224 15-500 cells/uL ABSOLUTE BASOPHILS 63 0-200 cells/uL NEUTROPHILS 77 LYMPHOCYTES 12.6 MONOCYTES 6.3 EOSINOPHILS 3.2 BASOPHILS 0.9 HEMOGLOBIN A1c Reviewed date:06/01/2022 08:26:09 AM Interpretation: Performing Lab:NL2, [facility]ves[facility] LLC[address] [place] [address], [address], DtmilmjqcghQE[address] Bradford Lynch Notes/Report: 0; 0; 0; 0; 0; 0 FASTING:YES FASTING: YES HEMOGLOBIN A1c 5.5 <5.7 % of total Hgb For the purpose of screening for the presence of diabetes: <5.7% Consistent with the absence of diabetes 5.7-6.4% Consistent with increased risk for diabetes (prediabetes) > or =6.5% Consistent with diabetes This assay result is consistent with a decreased risk of diabetes. Currently, no consensus exists regarding use of hemoglobin A1c for diagnosis of diabetes in children. According to [place] Diabetes Association (ADA) guidelines, hemoglobin A1c <7.0% represents optimal control in non- diabetic patients. Different metrics may apply to specific patient populations. Standards of Medical Care in Diabetes(ADA). T4, FREE Reviewed date:06/02/2022 08:16:58 AM Interpretation: Performing Lab:NL2, [facility], [address], [id number] Bradford Lynch Notes/Report: 0; 0; 0; 0; 0; 0 FASTING:YES FASTING: YES T4, FREE 0.9 0.8-1.8 ng/dL TSH Reviewed date:06/02/2022 08:23:40 AM Interpretation: Performing Lab:NL2, [facility] [employer] [facility] [employer] [address], [address], [place]mbtn[place]hhnveOA[address] Bradford Lynch Notes/Report: 0; 0; 0; 0; 0; 0 FASTING:YES FASTING: YES TSH 5.30 0.40-4.50 mIU/L CBC Reviewed date:08/12/2022 11:10:34 AM Interpretation: Performing Lab: Notes/Report: Note Original Ordering Provider: KENYA FARIAS MD [employer], [place] [address] Mobile Sales Expert - Sue Villegas MD WBC 6.9 4.8-10.8 x10-3/uL RBC 3.3 4.5-5.5 x10-6/uL HEMOGLOBIN 9.9 13.5-17.5 g/dL HEMATOCRIT 30.6 42-54 % MCV 91.6 79-98 fL MCH 29.6 27-32 pg MCHC 32.4 32-37 g/dL RDW 12.9 11-15 % PLT COUNT 287 130-400 x10-3/uL MEAN PLATELET VOLUME 10.1 7-11 fL NRBC % AUTO 0.0 <1 % NRBC # AUTO 0.00 <0.1 x10-3/uL Note Original Ordering Provider: KENYA FARIAS MD [employer], [place] [address] Mobile Sales Expert - Sue Villegas MD GLYCOHEMOGLOBIN PROFILE Reviewed date:08/12/2022 11:09:14 AM Interpretation: Performing Lab: Notes/Report: GLYCATED HEMOGLOBIN A1C 6.7 <6.5 % ESTIMATED AVERAGE GLUCOSE 146 LIPID PROFILE Reviewed date:08/12/2022 11:10:19 AM Interpretation: Performing Lab: Notes/Report: CHOLESTEROL 134 0-200 mg/dL TRIGLYCERIDES 111 0-150 mg/dL FREE T4 Reviewed date:08/12/2022 11:09:25 AM Interpretation: Performing Lab: Notes/Report: FREE T4 1.10 0.70-1.80 ng/dL TSH Reviewed date:08/12/2022 11:10:11 AM Interpretation: Performing Lab: Notes/Report: TSH 2.11 0.40-4.00 uIU/ml GLUCOSE Reviewed date:08/23/2022 01:32:07 PM Interpretation: Performing Lab: Notes/Report: Note Original Orderi ng Provider: KENYA FARIAS MD GLUCOSE 119 70-100 mg/dL Reference range applicable to fasting specimens only CBC Reviewed date:11/18/2022 10:36:01 AM Interpretation: Performing Lab: Notes/Report: Note Original Ordering Provider: ZAHRAA PUENTE MD [employer], [place] [address] Mobile Sales Expert - Flower Mcdaniel MD WBC 7.1 4.8-10.8 x10-3/uL RBC 3.3 4.5-5.5 x10-6/uL HEMOGLOBIN 9.7 13.5-17.5 g/dL HEMATOCRIT 31.2 42-54 % MCV 93.4 79-98 fL MCH 29.0 27-32 pg MCHC 31.1 32-37 g/dL RDW 12.7 11-15 % PLT COUNT 246 130-400 x10-3/uL MEAN PLATELET VOLUME 10.5 7-11 fL NRBC % AUTO 0.0 <1 % NRBC # AUTO 0.00 <0.1 x10-3/uL Note Original Ordering Provider: ZAHRAA PUENTE MD [employer], [place] [address] Mobile Sales Expert - Flower Mcdaniel MD GLYCOHEMOGLOBIN PROFILE Reviewed date:11/17/2022 11:02:48 AM Interpretation: Performing Lab: Notes/Report: GLYCATED HEMOGLOBIN A1C 6.7 <6.5 % ESTIMATED AVERAGE GLUCOSE 146 FREE T4 Reviewed date:11/17/2022 11:01:50 AM Interpretation: Performing Lab: Notes/Report: FREE T4 0.97 0.70-1.80 ng/dL CREATINE KINASE (CK) Reviewed date:11/17/2022 11:01:50 AM Interpretation: Performing Lab: Notes/Report: CREATINE KINASE (CK) 150 22-269 U/L Note [employer], a member of [address] [address] Mobile Sales Expert - Flower Mcdaniel MD MAGNESIUM Reviewed date:11/18/2022 10:36:01 AM Interpretation: Performing Lab: Notes/Report: MAGNESIUM 1.8 1.9-2.6 mg/dL ELECTROLYTES Reviewed date:11/17/2022 11:02:02 AM Interpretation: Performing Lab: Notes/Report: SODIUM 139 135-145 mEq/L POTASSIUM 4.6 3.5-5.5 mmol/L CHLORIDE 110 96-110 mmol/L CO2 21 21-32 mmol/L ANION GAP 8 3-11 BUN Reviewed date:11/18/2022 10:36:01 AM Interpretation: Performing Lab: Notes/Report: BUN 54 5-25 mg/dL CREATININE WITH GFR Reviewed date:11/18/2022 10:36:01 AM Interpretation: Performing Lab: Notes/Report: CREAT 3.62 0.7-1.3 mg/dL GLOMERULAR FILTRATION RATE 19 >60 This eGFR result was calculated using the CKD-EPI 2020 Creatinine Equation SGPT Reviewed date:11/17/2022 11:02:02 AM Interpretation: Performing Lab: Notes/Report: SGPT 35 10-60 U/L ESR (Not yet reviewed by pro vider) Interpretation: Performing Lab: Notes/Report: ESR 25 0-20 mm/hr CBC Reviewed date:08/04/2022 10:56:18 AM Interpretation: Performing Lab: Notes/Report: Note Original Ordering Provider: KENYA FARIAS MD [employer], [place] [address] Mobile Sales Expert - Sue Villegas MD WBC 6.6 4.8-10.8 x10-3/uL RBC 3.3 4.5-5.5 x10-6/uL HEMOGLOBIN 10.0 13.5-17.5 g/dL HEMATOCRIT 30.7 42-54 % MCV 92.2 79-98 fL MCH 30.0 27-32 pg MCHC 32.6 32-37 g/dL RDW 13.0 11-15 % PLT COUNT 322 130-400 x10-3/uL MEAN PLATELET VOLUME 10.4 7-11 fL NRBC % AUTO 0.0 <1 % NRBC # AUTO 0.00 <0.1 x10-3/uL Note Original Ordering Provider: KENYA FARIAS MD [employer], [place] [address] Mobile Sales Expert - Sue Villegas MD INTACT PTH Reviewed date:08/04/2022 10:56:27 AM Interpretation: Performing Lab: Notes/Report: INTACT PTH 149 18-88 pg/mL Note [employer] [address] Mobile Sales Expert - Seu Villegas MD RENAL PROFILE Reviewed date:08/04/2022 10:55:55 AM Interpretation: Performing Lab: Notes/Report: Note Original Orderi ng Provider: KENYA FARIAS MD GLUCOSE 119 70-100 mg/dL Reference range applicable to fasting specimens only BUN 56 5-25 mg/dL CREAT 3.57 0.7-1.3 mg/dL GLOMERULAR FILTRATION RATE 19 >60 This eGFR result was calculated using the CKD-EPI 2020 Creatinine Equation SODIUM 137 135-145 mEq/L POTASSIUM 4.0 3.5-5.5 mmol/L CHLORIDE 105 96-110 mmol/L CO2 23 21-32 mmol/L ANION GAP 9 3-11 CALCIUM 9.1 8.5-10.5 mg/dL PHOSPHORUS 5.1 2.5-4.5 mg/dL ALBUMIN 3.8 3.2-5.0 G/dL RENAL PROFILE Reviewed date:12/06/2022 11:41:50 AM Interpretation: Performing Lab: Notes/Report: Note Original Ordering Provider: ZAHRAA PUENTE MD [employer], [place] [address] Mobile Sales Expert - Flower Mcdaniel MD GLUCOSE 198 70-100 mg/dL Reference range applicable to fasting specimens only BUN 44 5-25 mg/dL CREAT 3.60 0.7-1.3 mg/dL GLOMERULAR FILTRATION RATE 19 >60 This eGFR result was calculated using the CKD-EPI 2020 Creatinine Equation SODIUM 138 135-145 mEq/L POTASSIUM 4.4 3.5-5.5 mmol/L CHLORIDE 109 96-110 mmol/L CO2 24 21-32 mmol/L ANION GAP 5 3-11 CALCIUM 8.3 8.5-10.5 mg/dL PHOSPHORUS 3.8 2.5-4.5 mg/dL ALBUMIN 3.6 3.2-5.0 G/dL Note Original Ordering Provider: ZAHRAA PUENTE MD [employer], [place] [address] Mobile Sales Expert - Flower Mcdaniel MD CBC Reviewed date:12/06/2022 11:44:07 AM Interpretation: Performing Lab: Notes/Report: Note Original Ordering Provider: ZAHRAA PUENTE MD [employer], a member of [address] [address] Mobile Sales Expert - Flower Mcdaniel MD WBC 7.3 4.8-10.8 x10-3/uL RBC 3.4 4.5-5.5 x10-6/uL HEMOGLOBIN 9.8 13.5-17.5 g/dL HEMATOCRIT 31.2 42-54 % MCV 93.1 79-98 fL MCH 29.3 27-32 pg MCHC 31.4 32-37 g/dL RDW 12.9 11-15 % PLT COUNT 255 130-400 x10-3/uL MEAN PLATELET VOLUME 10.3 7-11 fL NRBC % AUTO 0.0 <1 % NRBC # AUTO 0.00 <0.1 x10-3/uL Note Original Ordering Provider: ZAHRAA PUENTE MD [employer], a member of [address] [address] Mobile Sales Expert - Flower Mcdaniel MD REASON FOR REFERRAL Diagnosis 1 Encounter for fittin g and adjustment of other specified devices (Z46.89) Diagnosis 2 Hemiplegia and hemip 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 (I69.354) Referral Organization [facility] Referring Provider First Name JORDY Referring Provider Last Name BRENT Referring Provider Speciality Internal M edicine Referred Provider Specialty Unknown Clinical Notes KANIKA JUAREZ 09/2021 12:49:57 PM >[facility] , filled out form and faxed to [phone], KANIKA JUAREZ 08/11/2022 09:37:59 AM >patient is currently in a jail Referral Priority Routine MEDICATIONS Medication SIG (Take, Route, Frequency, Duration) Notes Start Date End Date Status Symbicort 160-4.5 MCG/ACT INHALE 2 PUFFS INTO THE LUNGS TWICE A DAY FOR 30 DAYS for 30 Not-Taking NIFEdipine ER 30 MG 1 tablet on an empty stomach Orally Once a day Not-Taking Pantoprazole Sodium 40 MG 1 tablet Orall y Once a day for 90 Active Carvedilol 12.5 MG 1 tablet with food Orally Twice a day for 90 days Active Jardiance 10 MG TAKE 1 TABLET BY LILIBETH TH EVERY DAY FOR 30 DAYS for 30 Active Famotidine 10 MG 1 tablet as needed Orally Twice a day for 90 days Active ARIPiprazole 2 MG TAKE 1 TABLET BY LILIBETH TH EVERY DAY for 90 Active Levothyroxine Sodium 50 MCG 1 tablet in the morning on an empty stomach Orally Once a day for 90 days Active Sertraline HCl 100 MG 1 tablet and 1/2 t ab daily total 150mg Orally Once a day for 90 days 150mg Not-Taking Eliquis 5 MG 1 tablet Orally Twic e a day for 30 days 04/07/2022 Active amLODIPine Besylate 10 MG 1 tablet Orall y Once a day for 90 days Active Atorvastatin Calcium 40 MG 1 tablet Oral ly Once a day for 90 days Active IMMUNIZATIONS Vaccine Route Administration Date Status Comme nts influenza IM Intramuscular 06/21/2021 Administered influenza IM Intramuscular 06/07/2022 Administered SOCIAL HISTORY Tobacco Use: Social History Observation Description Date Details (start date - stop date) Current Smoker NA - NA Sex Assigned At : Social History Observation Description Sex Assigned At Unknown Tobacco Use/Smoking Question Answer Notes Are you a current smoker How often do you smoke cigarettes? every day How many cigarettes a day do you smoke? 11-20 PROBLEMS Problem Type ICD Code Onset Dates Problem Status W/U Status Risk SNOMED Code Notes Problem Essential (primary) hypertension (I10) Active confirmed Essential hypertension (97907729) Problem Cerebral infarction due to unspecified occlusion or stenosis of unspecified cerebral artery (I63.50) Active confirmed Cerebral infarction due to carotid artery occlusion (563087111942011) Problem Hemiplegia and hemip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 (I69.354) Active confirmed 442991036 Problem Chronic kidney disease, unspecified (N18.9) Active confirmed 059613346 Problem Atrial septal defect (Q21.1) Active confirmed Atrial septal defect (54973183) Problem Encounter for fitting and adjustment of other specified devices (Z46.89) Active confirmed 600241927 Problem Hyperlipidemia, unspecified (E78.5) Active confirmed Hyperlipidemia (25725394) Problem Depression, unspecified depression type (F32.9) Active confirmed Depressive disorder (disorder) (73956697) Problem Vitamin D deficiency (E55.9) Active confirmed 44498760 Problem Chronic anticoagulation (Z79.01) Active confirmed 040820041 Problem Type 2 diabetes mellitus without complication, without long-term current use of insulin (E11.9) Active confirmed 217077969 Problem Stage 4 chronic kidney disease (N18.4) Active confirmed 753175808 Problem Major depress dis, severe (F32.2) Active confirmed Severe major depression, single episode, without psychotic features (67537648) Problem Hemiparesis affecting left side as late effect of cerebrovascular accident (I69.354) Active confirmed Hemiplegi a of nondominant side as late effect of cerebrovascular disease (853291752) Problem Stage 3b chronic kidney disease (N18.32) Active confirmed 915490232 VITAL SIGNS Heart Rate 67 /min 06/29/2022 Blood pressure diastolic 80 mm Hg 06/29/2022 Oximetry 97 % 06/29/2022 Height 73 in 06/29/2022 Blood pressure systolic 132 mm Hg 06/29/2022 Weight 193.9 lbs 06/29/2022 BMI 25.58 kg/m2 06/29/2022 Encounters Encounter Location Date Provider Diagnosis [facility] [address] [place] [address] 08/09/[address] [facility] [address] [place] [address] 05/19/2022 JORDY BRENT Essential (primary) hypertension I10 ; Adult general medical exam Z00.00 ; Hyperlipidemia, unspecified E78.5 ; Cerebral infarction due to unspecified occlusion or stenosis of unspecified cerebral artery I63.50 ; Depression, unspecified depression type F32.9 ; Atrial septal defect Q21.1 ; Hemiparesis affecting left side as late effect of cerebrovascular accident I69.354 ; Chronic anticoagulation Z79.01 ; History of CVA (cerebrovascular accident) Z86.73 ; Stage 3b chronic kidney disease N18.32 and Type 2 diabetes mellitus without complication, without long-term current use of insulin E11.9 [facility] [address] [place] [address] 06/07/2022 JORDY BRENT Essential (primary) hypertension I10 ; Hyperlipidemia, unspecified E78.5 ; Encounter for immunization Z23 ; Cerebral infarction due to unspecified occlusion or stenosis of unspecified cerebral artery I63.50 ; Depression, unspecified depression type F32.9 ; Atrial septal defect Q21.1 ; Hemiparesis affecting left side as late effect of cerebrovascular accident I69.354 ; Chronic anticoagulation Z79.01 ; History of CVA (cerebrovascular accident) Z86.73 ; Stage 3b chronic kidney disease N18.32 and Type 2 diabetes mellitus without complication, without long-term current use of insulin E11.[address] [facility] [address] [place] [address] 06/29/2022 JORDY BRENT Essential (primary) hypertension I10 ; Hyperlipidemia, unspecified E78.5 ; Depression, unspecified depression type F32.9 ; Hemiparesis affecting left side as late effect of cerebrovascular accident I69.354 and Stage 4 chronic kidney disease N18.[address] [facility] [address] [place] [address] 05/20/2022 TALAL WILKERSON Essential (primary) hypertension I10 [address] [place] [address] [address] 06/07/2022 JORDY BRENT [address] [place] [address] [address] 06/29/[address] [facility] [address] [place] [address] 06/29/2022 TALAL WILKERSON [facility] [address] [place] [address] 07/19/2022 TALAL WILKERSON [facility] [address] [place] [address] 07/29/2022 TALAL WILKERSON [facility] [address] [place] [address] 08/04/2022 TALAL WILKERSON ASSESSMENTS Encounter Date Diagnosis Assessment Notes Treatment Notes Treatment Clinical Notes 05/19/2022 Essential (primary) hypertension (ICD-10 - I10) 05/19/2022 Adult general medica l exam (ICD-10 - Z00.00) 05/20/2022 Essential (primary) hypertension (ICD-10 - I10) 06/07/2022 Essential (primary) hypertension (ICD-10 - I10) 06/07/2022 Hyperlipidemia, unspecified (ICD-10 - E78.5) 06/29/2022 Essential (primary) hypertension (ICD-10 - I10) 06/29/2022 Hyperlipidemia, unspecified (ICD-10 - E78.5) 06/29/2022 Depression, unspecified depression type (ICD-10 - F32.9) 06/07/2022 Encounter for immunization (ICD-10 - Z23) 05/19/2022 Hyperlipidemia, unspecified (ICD-10 - E78.5) 05/19/2022 Cerebral infarction due to unspecified occlusion or stenosis of unspecified cerebral artery (ICD-10 - I63.50) 06/07/2022 Cerebral infarction due to unspecified occlusion or stenosis of unspecified cerebral artery (ICD-10 - I63.50) 06/29/2022 Hemiparesis affectin g left side as late effect of cerebrovascular accident (ICD-10 - I69.354) 06/07/2022 Depression, unspecified depression type (ICD-10 - F32.9) 06/29/2022 Stage 4 chronic kidn ey disease (ICD-10 - N18.4) 05/19/2022 Depression, unspecified depression type (ICD-10 - F32.9) 05/19/2022 Atrial septal defect (ICD-10 - Q21.1) 06/07/2022 Atrial septal defect (ICD-10 - Q21.1) 06/07/2022 Hemiparesis affectin g left side as late effect of cerebrovascular accident (ICD-10 - I69.354) 05/19/2022 Hemiparesis affectin g left side as late effect of cerebrovascular accident (ICD-10 - I69.354) 05/19/2022 Chronic anticoagulation (ICD-10 - Z79.01) 06/07/2022 Chronic anticoagulation (ICD-10 - Z79.01) 05/19/2022 History of CVA (cerebrovascular accident) (ICD-10 - Z86.73) 06/07/2022 History of CVA (cerebrovascular accident) (ICD-10 - Z86.73) 05/19/2022 Stage 3b chronic kidney disease (ICD-10 - N18.32) 06/07/2022 Stage 3b chronic kidney disease (ICD-10 - N18.32) 06/07/2022 Type 2 diabetes mellitus without complication, without long-term current use of insulin (ICD-10 - E11.9) 05/19/2022 Type 2 diabetes mellitus without complication, without long-term current use of insulin (ICD-10 - E11.9) PLAN OF TREATMENT Pending Test Test Name Order Date BASIC METABOLIC PANEL 09/09/2021 ESR 05/08/2023 Future Test Test Name Order Date 25OH VITAMIN D 06/23/2021 COMPREHENSIVE METABOLIC PANEL 06/23/2021 HEMOGLOBIN A1C 06/23/2021 LIPID PANEL 06/23/2021 TSH 06/23/2021 BASIC METABOLIC PANEL 09/21/2021 HEMOGLOBIN A1C 09/21/2021 LIPID PANEL 09/21/2021 MICROALBUMIN, URINE 09/21/2021 Insurance Providers Payer Name Payer Address Payer Phone Subscriber Number Group Number Insured Name Patient Relationship to Insured Coverage Start Date Coverage End Date [facility] [address] [place] [address] [id number] Fr Jacob Loco Self - patient is the insured MEDICAL (GENERAL) HISTORY Medical History History ICD Code hypertension hyperlipidemia stroke blood clots depression Surgical History Surgery Date(Month/Year) removal of tumor 1983 cholecystectomy 2002 Hospitalization History Reason Date(Month/Year) [facility] vommiting/ dehydration causing SUZY also covid 19 positive 09/04/2021
--- OUTSIDE RECORDS SUMMARY | 2023-05-11 17:43 | XMS_ITS | Continuity of Care Document ---
Author Name Unknown Organization [facility] Address [address] [place] [address]- Care Team Providers Care Bander And Cellophaner Machine Helper Name Role Phone Eliana LEDESMA, Elvis Vazquez Primary Care Physician [place] [facility] [place]03[place] - 09/02/22 [facility] [address] [place] [id number]- Allergies, Adverse Reactions, Alerts No Known Allergies [...] 03/03/22 8:22:00 EDT, Route to Pharmacy Electronically, [facility]/pharmacy #[id number], Partial fill upon patient request if the prescription is for a schedule II opioid drug.... Start Date: 03/03/22 Status: Ordered atorvastatin 40 mg oral tablet 1 tablet = 40 mg, By Mouth, Daily, # 30 tablet, 5 Refills, Maintenance, 03/03/22 8:25:00 EDT, Tablet, [facility]/pharmacy #[id number], Partial fill upon patient request [...] Date: 03/03/22 Status: Ordered Problem List Condition Confirmation Course Effective Dates Status H ealth Status Informant Chronic kidney disease stage 3B Confirmed Active Depression Confirmed Active Essential hypertension Confirmed Active GERD - Gastro-esophageal reflux disease Confirmed Active History of COVID-19 Confirmed Active History of embolic stroke due to PFO with left hemiparesis Confirmed Active Hyperlipidemia Confirmed Active Hypothyroidism Confirmed Active Nonadherence with treatment Confirmed Active Do not intubate, perform CPR, or defibrillate Confirmed Active PFO - Patent foramen ovale Confirmed Active Tobacco dependence Confirmed Active Type 2 diabetes mellitus with complication Confirmed Active Social History Social History Type Response Smoking Status 10 or more cigarette s (1/2 pack or more)/day in last 30 days entered on: 03/02/22 Sex Male Patient Care team information Care Team Personnel Name: Sherita Ennis RN Position: [facility] RN Member Role: Primary Care Nurse Name: Mary Torre RN Position: [facility] RN Member Role: Primary Care Nurse Name: Treasure Guido Position: [facility] RN Member Role: Primary Care Nurse Name: Chrystal Reddy RN Position: [facility] RN Member Role: Primary Care Nurse Name: Keya Ty RN Position: [facility] RN Member Role: Primary Care Nurse Name: Elvis Monroy MD Position: [facility] Physician (General Medicine) Member Role: PCP Address: Address: [address] [place] [address], [address] Primary [place] [address]- Name: Nelly Soto RN Position: [facility] RN Member Role: Primary Care Nurse Care Team Related Persons Name: GREGORIA ADDISON Address: home [address] [place] [address]
[2023-05-11] MEDS: Ampicillin Sodium/Sulbactam Na 3 GM in 0.9 % Sodium Chloride 100 ML IV (18:04)
--- NOTE | 2023-05-11 18:15 | PC.NURSE ---
pharmacy called, desmopressin ready but is immediate use medication. pharmacy to be called when ready to hang desmopressin. report given to ANDREW Wiseman on [facility]. message relayed to call pharmacy when ready for desmopressin drip.
[2023-05-11] MEDS: Lactated Ringers 1,000 ML 125 ML IVCONT (18:27)
--- NOTE | 2023-05-11 19:29 | P.EN_ITS ---
Event Note Date of Service: 05/11/23 Event Note: GI Consult-Full note dictated-History from patient, EMR, ER staff, and Muna Gomez RN(Clergy Wall Attendant) Imp: Epistaxis, Hematemesis, chronic N/V, and chronic constipation I suspect the hematemesis is most likely from having swallowed blood during the epistaxis. I doubt he has a significant UGI bleed. I suspect the chronic N/V may be due to his reported constipation, but the EGD can help assess that as well. Chronic constipation, but no sign of GI pathology on his CT scan. Rec: IV PPI, EGD 05/12 to definitively assess for UGI bleed, follow Hgb and PT/INR. Antiemetics for his N/V and begin a bowel regimen at his alf care facility. I don't think he needs a colonoscopy at this time and I don't think he would be a good candidate for that given his comorbidities. Full consent has been obtained for the EGD, including risks of bleeding and pe rforation. D/W patient and Muna Gomez in detail. They are comfortable with this plan. Thanks. Time Spent With Patient Time: Total time managing care of this patient today ____ minutes.
--- NOTE | 2023-05-11 19:38 | MHC.SHP ---
Pre-Procedural Eval Section A Date of Service: 05/12/23 The patient is an INPATIENT: Yes The History & Physical has been completed within 30 days and I have reviewed it.: Yes Section B Chief Complaint: UGIB, epistaxis Allergies: Allergies Allergy/AdvReac Type Severity Reaction Status Date / Time gabapentin Allergy Unknown Verified 05/03/23 14:58 Plan I have reviewed the history and physical and performed a pertinent physical examination on my patient. No changes have occurred unless specified. Time Spent With Patient Time: Total time managing care of this patient today ____ minutes.
[2023-05-11 21:33] LABS: Glucose, Whole Blood 120 mg/dL (60-115)
[2023-05-11] MEDS: Atorvastatin Calcium 40 MG TABLET PO (21:35)
[2023-05-11] MEDS: traZODone HCL 25 MG HALFTAB PO (21:35)
[2023-05-11] MEDS: carvediloL 12.5 MG TABLET PO (21:35)
[2023-05-11] MEDS: Linezolid 600 MG TABLET PO (21:36)
[2023-05-11] MEDS: Desmopressin Acetate 20 MCG in 0.9 % Sodium Chloride 50 ML 100 MCG IV (21:45)
--- NOTE | 2023-05-11 22:19 | CONS_ITS ---
DATE OF SERVICE: 05/11/2023 REASON FOR CONSULTATION: Reported hematemesis and coffee-grounds emesis with associated anemia, chronic vomiting, and constipation. HISTORY OF PRESENT ILLNESS: This has been obtained from the patient, Muna Gomez who is a RN and is the Clergy Heel Builder, from the ER staff, and from the medical record. The patient is a 53-year-old male, on chronic Eliquis, in relation to a previous history of a DVT and stroke, in relation to a patent foramen ovale, who has been having a fairly significant nosebleed for the past 2 to 3 days at his long-term care facility. This was associated with a lot of swallowing of blood with some resultant hematemesis and coffee-grounds emesis. However, it was not clear if the blood he was throwing up was strictly in relation to his epistaxis or in relation to a GI bleed as well. The patient is on a PPI, in addition to his chronic Eliquis. He does not use any aspirin nor NSAIDs. The patient denies any history of ulcer disease. He reports that he eats fairly well, but does have a long-standing history of vomiting for many years. He also has a very longstanding history of chronic constipation with upwards of 2 weeks at a time without a bowel movement. He has never had an endoscopy nor colonoscopy. There has been no reported melena, nor hematochezia. He denies any significant abdominal pain, jaundice, nor unintentional weight loss. He denies any significant heartburn nor dysphagia. He denies any known family history of GI malignancy. Since being in the ER, he has been hemodynamically stable. He has had at least one more episode of hematemesis, but again it is not clear as to whether this represents a GI bleed or epistaxis with subsequent swallowing of blood. His hemoglobin was 11.6 back in March. His hemoglobin on arrival in the ER was 8.8, but subsequent hemoglobins have increased to 9.3, and the most recent one at approximately at 2 p.m. of 10.1. Of note, his initial INR was 2.0 with a PT of 24.3, and he received vitamin K intravenously and FFP in the ER. PRESENT MEDICATIONS: Include acetaminophen, amlodipine, atorvastatin, Unasyn, carvedilol, Rocaltrol, Zyvox, Zofran p.r.n., pantoprazole 40 mg IV b.i.d., sertraline, and trazodone. He did receive a dose of DDAVP and tranexamic acid. He also received the above-mentioned vitamin K. 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 He denies a history of AK nor lung disease. He does have diabetes, chronic renal insufficiency, and diabetes mellitus. He has had a cholecystectomy. He has osteomyelitis on his foot. 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 He lives at the long-term care facility. He is a former smoker. He does not use any alcohol. FAMILY HISTORY: Noncontributory. REVIEW OF SYSTEMS: CONSTITUTIONAL: He has been feeling fairly well with a good appetite prior to the acute onset of his epistaxis and questionable GI bleeding. SKIN: No rash. No pruritus. CARDIAC: No chest pain. PULMONARY: No cough. No hemoptysis. GI: As above. URINARY: No dysuria. No hematuria. NEUROLOGIC: No headache or seizures. PHYSICAL EXAMINATION: GENERAL: The patient is alert, pleasant, cooperative male. SKIN: Warm and dry. HEENT: Anicteric sclerae. NECK: Supple without lymphadenopathy. CHEST: Clear. CARDIAC: Normal S1, S2. ABDOMEN: Soft, nondistended, nontender, without mass. LABORATORY DATA: As above. His most recent hemoglobin was 10.1 with white blood cell count 9.9, MCV 86, platelets 178,000. PT 24.3 with INR 2.0. Normal electrolytes. BUN 48, creatinine 3.7. Total bilirubin 0.3, AST 12, ALT 22, alkaline phosphatase 89, albumin 3.9. Stool was heme positive. CT scan of his abdomen revealed a questionable lesion in the right kidney. The GI tract appeared unremarkable without any sign of bowel obstruction, mass, nor free air. Chest x-ray was unremarkable. IMPRESSION: In regard to the patient's presentation with bleeding, I suspect his hematemesis and coffee-grounds emesis was primarily in relation to having swallowed blood from his significant epistaxis over the past few days, while on his Eliquis. I doubt this represents actual upper GI bleeding given his otherwise stable clinical appearance and stable hemoglobin since arrival in the ER. Nonetheless, given the fact he is on chronic anticoagulation, and most likely needs to remain on that, I would recommend an upper endoscopy while here in the hospital to definitively exclude an upper GI source of blood loss as well. Full consent has been obtained from the patient for this, including risks of bleeding and perforation. The procedure will be done with monitored anesthesia care. I would continue his IV PPI for the time being. He will have followup laboratories in the morning including a CBC and PT with INR. In regard to his history of chronic vomiting, the upper endoscopy will be helpful to rule out any etiology of that such as a pyloric stricture or ulcer disease. We did review that given his longstanding and significant constipation, that may be playing a role in his intermittent nausea and vomiting as well. Therefore, I did review with him and his nurse from the [facility] the need to remain on a good bowel regimen including MiraLAX and fiber supplements to try to improve his bowel regimen. At this point I would hold off on a colonoscopy given no worrisome signs such as lower GI bleeding, the negative CT scan, and his overall condition. This has all been discussed in detail with the patient and he is comfortable with the plan. Thank you for the consultation. MD LUZMA Ndiaye/ROHAN / [phone] LILLIAN
[2023-05-12] VITALS (11 sets, daily range): BP systolic 125–199; BP diastolic 72–92; PULSE 75–82; RESP 14–20; TEMP 36.2–37.3; O2SAT 93–100
[2023-05-12] MEDS: Ampicillin Sodium/Sulbactam Na 3 GM in 0.9 % Sodium Chloride 100 ML IV ×4 (00:50→18:48)
[2023-05-12] MEDS: 0.9 % Sodium Chloride Flush 3 ML SYRINGE IVFLUSH ×3 (01:05→15:46)
[2023-05-12] MEDS: Lactated Ringers 1,000 ML 125 ML IVCONT (03:52)
[2023-05-12] MEDS: Levothyroxine Sodium 50 MCG TABLET PO (05:33)
[2023-05-12] MEDS: Pantoprazole Sodium 40 MG/10 ML VIAL IVPUSH (05:35)
[2023-05-12] MEDS: ondansetron HCL 4 MG/2 ML VIAL IVPUSH (06:25)
[2023-05-12] MEDS: Linezolid 600 MG TABLET PO ×2 (07:49→20:24)
[2023-05-12] MEDS: carvediloL 12.5 MG TABLET PO ×2 (07:49→20:24)
[2023-05-12] MEDS: Sertraline HCL 50 MG TABLET PO (07:49)
[2023-05-12] MEDS: amLODIPine Besylate 10 MG TABLET PO (07:49)
[2023-05-12] MEDS: calcitrioL 0.25 MCG CAPSULE PO (07:50)
[2023-05-12 07:57] LABS: Glucose, Whole Blood 142 mg/dL (60-115)
[2023-05-12 08:12] LABS: Estimated Average Glucose 166 mg/dL; Hemoglobin A1c % 7.4 % (<6.0)
--- NOTE | 2023-05-12 08:29 | MHC.CM.PN ---
CM met with Patient at bedside. 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 Returning to [facility] is the goal and CM has initiated and will follow for dc planning. Patient uses a cane and his PCP is Dr. Hakeem [place].
--- NOTE | 2023-05-12 08:37 | MHC.CM.PN ---
Patient's Sister/Belkis is the HCP.
--- NOTE | 2023-05-12 10:34 | MHC.CM.PN ---
Per ROUNDS discussion, Patient is being scoped at 3:20 PM and pending results, may be able to dc home today with the Rhino Rocket in place(return on Monday to have it removed);CM will follow.
[2023-05-12 10:55] LABS: Hematocrit 25.1 % (42.0-52.0); Hemoglobin 8.5 g/dl (14.0-18.0); Mean Corpuscular HGB Conc 33.9 g/dl (31.0-36.0); Mean Corpuscular Hemoglobin 28.1 pg (27.0-33.0); Mean Corpuscular Volume 83.1 fL (80.0-98.0); Mean Platelet Volume 10.3 fL (9.4-12.4); Platelet Count 177 X10*3/uL (160-400); Red Blood Count 3.02 X10*6/uL (4.60-5.80); White Blood Count 8.8 X10*3/uL (4.8-10.8)
[2023-05-12 11:20] LABS: Anion Gap 16 (12-20); Blood Urea Nitrogen 36 mg/dL (9-16); Calcium 8.6 mg/dL (8.4-10.2); Carbon Dioxide 19 mmol/L (22-29); Chloride 113 mmol/L (96-108); Creatinine Clr Calc Pharmacy 31.8; Estimated Glomerular Filt Rate 20; Glucose Random 143 mg/dL (60-115); Magnesium 1.9 mg/dL (1.6-2.6); Potassium 3.9 mmol/L (3.3-5.1); Sodium 144 mmol/L (135-145)
[2023-05-12 11:32] LABS: INTERNATIONAL NORM RATIO 1.2 (0.9-1.1); Prothrombin Time 14.3 SEC (11.1-13.3)
[2023-05-12 12:26] LABS: Glucose, Whole Blood 137 mg/dL (60-115)
--- NOTE | 2023-05-12 13:21 | P.PNIM_ITS ---
Subjective Subjective Date of Service: 05/12/23 Interval History: some oozing around Rhino-Rocket no further coffee-ground emesis no abd pain Review of Systems Review of Systems: Yes all other systems are reviewed and are negative Physical Exam 2 Vital Signs: Vital Signs: Last Vital Signs Temp 98.2 F 05/12/23 12:00 Pulse 81 05/12/23 12:00 Resp 20 05/12/23 12:00 BP 142/72 H 05/12/23 12:00 Pulse Ox 95 05/12/23 12:00 O2 Del Method Room Air 05/12/23 12:00 BMI result Body Mass Index 28.4 Gen: in no acute distress HEENT: sclera anicteric, moist mucus membranes, Rhino-Rocket in place with dried blood on nare and down to mouth Neck: supple Lungs: clear to auscultation bilaterally Heart: regular rate and rhythm, no murmurs Abd: soft, non-tender, non-distended Ext: no edema Skin: warm/well-perfused Neuro: alert and oriented x3, chronic L hemiplegia Psych: appropriate affect Objective Data Active Medications Acetaminophen (Acetaminophen 325 Mg Tablet) 650 mg PO Q6H PRN PRN Reason: Pain, Mild (Pain Scale 1-3) Amlodipine Besylate (Amlodipine Besylate 10 Mg Tablet) 10 mg PO DAILY [facility]; Protocol Last Admin: 05/12/23 07:49 Dose: 10 mg Documented By: LEANNE Atorvastatin Calcium (Atorvastatin Calcium 40 Mg Tablet) 40 mg PO BEDTIME [facility] Last Admin: 05/11/23 21:35 Dose: 40 mg Documented By: BHAVNA Calcitriol (Calcitriol 0.25 Mcg Capsule) 0.25 mcg PO DAILY [facility] Last Admin: 05/12/23 07:50 Dose: 0.25 mcg Documented By: LEANNE Carvedilol (Carvedilol 12.5 Mg Tablet) 12.5 mg PO BID [facility]; Protocol Last Admin: 05/12/23 07:49 Dose: 12.5 mg Documented By: LEANNE Dextrose (Dextrose 50 % 25 Gm/50 Ml Syringe) 25 gm IVPUSH Q15M PRN; Protocol PRN Reason: per Hypoglycemia Standing Ord. Glucose (Glucose Gel 15 Gm Gel..Gram.) 15 gm PO Q15M PRN; Protocol PRN Reason: per Hypoglycemia Standing Ord. Guaifenesin (Guaifenesin 100 Mg/5 Ml Liquid) 5 ml PO Q4H PRN PRN Reason: Cough Ampicillin Sodium/Sulbactam (Sodium 3 gm/ Sodium Chloride) 100 mls @ 200 mls/hr IV Q6H [facility] Last Admin: 05/12/23 12:37 Dose: 200 mls/hr Documented By: LEANNE Insulin Human Lispro (Insulin Lispro 100 Unit/Ml 3 Ml Vial) 0 unit SUBCUT QIDACHS [facility]; Protocol Last Admin: 05/12/23 12:33 Dose: Not Given Documented By: LEANNE Non-Admin Reason: No Insulin Coverage Levothyroxine Sodium (Levothyroxine Sodium 50 Mcg Tablet) 50 mcg PO DAILY@0630 [facility] Last Admin: 05/12/23 05:33 Dose: 50 mcg Documented By: BHAVNA Linezolid (Linezolid 600 Mg Tablet) 600 mg PO BID [facility] Last Admin: 05/12/23 07:49 Dose: 600 mg Documented By: LEANNE Ondansetron HCl (Ondansetron Hcl 4 Mg/2 Ml Vial) 4 mg IVPUSH Q8H PRN PRN Reason: Nausea and Vomiting Last Admin: 05/12/23 06:25 Dose: 4 mg Documented By: BHAVNA Pantoprazole Sodium (Pantoprazole Sodium 40 Mg/10 Ml Vial) 40 mg IVPUSH BID@0630,1630 [facility] Last Admin: 05/12/23 05:35 Dose: 40 mg Documented By: BHAVNA Sertraline HCl (Sertraline Hcl 50 Mg Tablet) 50 mg PO DAILY [facility] Last Admin: 05/12/23 07:49 Dose: 50 mg Documented By: LEANNE Sodium Chloride (0.9 % Sodium Chloride Flush 3 Ml Syringe) 3 ml IVFLUSH QSHIFT [facility] Last Admin: 05/12/23 07:50 Dose: 3 ml Documented By: LEANNE Trazodone HCl (Trazodone Hcl 25 Mg Halftab) 25 mg PO BEDTIME [facility] Last Admin: 05/11/23 21:35 Dose: 25 mg Documented By: BHAVNA Labs 05/12/23 10:48 05/12/23 10:48 Labs: Laboratory Results - last 24 hr 05/11/23 05/11/23 05/11/23 10:36 13:52 21:29 MCV 85.9 MCH 28.5 MCHC 33.1 RDW 12.8 Plt Count 178 MPV 10.6 Immature Gran % (Auto) 0.3 Neut % (Auto) 87.2 H Lymph % (Auto) 7.4 L [place] % (Auto) 3.7 Eos % (Auto) 1.0 Baso % (Auto) 0.4 Lymph # (Auto) 0.7 L [place] # (Auto) 0.4 Eos # (Auto) 0.1 Baso # (Auto) 0.0 Abs Immat Gran (auto) 0.03 Absolute Neuts (auto) 8.6 H Absolute Nucleated RBC 0.000 Nucleated RBC % (auto) 0.0 PT INR Anion Gap Estim Creat Clear Calc Estimated GFR POC Glucose 120 H Random Glucose Estimat Average Glucose 166 Hemoglobin A1c % 7.4 H Calcium Magnesium Blood Type O Positive Antibody Screen NEGATIVE 05/12/23 05/12/23 05/12/23 07:42 10:48 12:20 MCV 83.1 MCH 28.1 MCHC 33.9 RDW 13.0 Plt Count 177 MPV 10.3 Immature Gran % (Auto) Neut % (Auto) Lymph % (Auto) [place] % (Auto) Eos % (Auto) Baso % (Auto) Lymph # (Auto) [place] # (Auto) Eos # (Auto) Baso # (Auto) Abs Immat Gran (auto) Absolute Neuts (auto) Absolute Nucleated RBC 0.000 Nucleated RBC % (auto) 0.0 PT 14.3 H D INR 1.2 H Anion Gap 16 Estim Creat Clear Calc 31.8 Estimated GFR 20 POC Glucose 142 H 137 H Random Glucose 143 H Estimat Average Glucose Hemoglobin A1c % Calcium 8.6 D Magnesium 1.9 Blood Type Antibody Screen Assessment and Plan (1) Epistaxis: Status: Acute (2) Acute upper GI bleeding: Status: Acute Plan d2 53yo M with CKD4, DM2, HTN, hypothyroidism, hx L-sided CVA [2019], hx DVT now on apixaban, and osteomyelitis of the 5th middle and proximal phalanges for which he is on 6 wk of PO linezolid. Presenting with posterior epistaxis requiring Rhino Rocket, then developed coffee-ground emesis x2 concerning for acute UGIB. UGIB - continue IV PPI, monitor H+H. suspect swallowed blood from epistaxis vs Juju-Nichols tear; EGD today. apixaban held and pt given vit K/FFP epistaxis - Rhino-Rocket x72h then removal in ED on 05/14/23. ABX ppx while in place; amp- sul while NPO, then amox-clav when taking PO - reached out to ED re concern of oozing around Rhino-Rocket. No active leaking or blood in back of throat at time of evaluation by ER MELISSA Monge; balloon inflated slightly more hypoMg - repleted incidental R renal mass - outpt CT or MRI osteomyelitis of 5th phalanx - continue PO linezolid prescribed as outpt by Dr Perez [ID], end date 05/20/23 CKD4 - creatinine close to baseline, avoid nephrotoxins hypothyroidism - LT4 HTN - carvedilol, amlodipine HLD - atorvastatin DM2, A1c 7.4 - correction-dose lispro, on empagliflozin hx DVT hx CVA - hold apixaban mood disorder - continue sertraline + trazodone VTE ppx - SCDs, hold apiaxaban due to bleeding code - DNR/DNI, MOLST in chart Time Spent With Patient Time: Total time managing care of this patient today __35__ minutes. Quality Stroke Does the patient have a stroke diagnosis?: No VTE Prior VTE?: No VTE Risk Level:: Medical - moderate - high VTE Device Contraindication: N/A - Device Ordered VTE Drug Contraindication: Treatment Not Indicated
--- NOTE | 2023-05-12 16:12 | P.CONAN_ITS ---
HPI - Anesthesia Eval Consult details Narrative: 53 yo male patient for EGD PMFSH Active Problems Active Problems: All Active Problems (Updated 05/12/23 @ 16:12 by Jeanie Nicole MD) History of cholecystectomy (Acute) Epistaxis (Acute). Tamponade still in right nare Acute upper GI bleeding (Acute) Renal failure (Acute) PFO (patent foramen ovale) (Acute) Hypertension (Acute) DVT (deep venous thrombosis) (Acute) Diabetes mellitus (Acute) Left-sided cerebrovascular accident (CVA) (Acute) with left hemiparesis Osteomyelitis (Acute) Former smoker. Quit 14 months ago Vomiting earlier today. Past Medical History Medical History Renal failure PFO (patent foramen ovale) Hypertension DVT (deep venous thrombosis) Diabetes mellitus Left-sided cerebrovascular accident (CVA) Osteomyelitis Family History Family history of problems with anesthesia: No Surgical History History of Problems with Anesthesia: No Social History Social History Housing: Snf Patient Tobacco Use Status: Former Tobacco user service: No Meds Allergies Allergy/AdvReac Type Severity Reaction Status Date / Time gabapentin Allergy Unknown Verified 05/03/23 14:58 Active Medications: Current Medications Acetaminophen (Acetaminophen 325 Mg Tablet) 650 mg PO Q6H PRN PRN Reason: Pain, Mild (Pain Scale 1-3) Amlodipine Besylate (Amlodipine Besylate 10 Mg Tablet) 10 mg PO DAILY [facility]; Protocol Last Admin: 05/12/23 07:49 Dose: 10 mg Atorvastatin Calcium (Atorvastatin Calcium 40 Mg Tablet) 40 mg PO BEDTIME [facility] Last Admin: 05/11/23 21:35 Dose: 40 mg Calcitriol (Calcitriol 0.25 Mcg Capsule) 0.25 mcg PO DAILY [facility] Last Admin: 05/12/23 07:50 Dose: 0.25 mcg Carvedilol (Carvedilol 12.5 Mg Tablet) 12.5 mg PO BID [facility]; Protocol Last Admin: 05/12/23 07:49 Dose: 12.5 mg Dextrose (Dextrose 50 % 25 Gm/50 Ml Syringe) 25 gm IVPUSH Q15M PRN; Protocol PRN Reason: per Hypoglycemia Standing Ord. Empagliflozin (Empagliflozin 10 Mg Tablet) 10 mg PO DAILY [facility] Glucose (Glucose Gel 15 Gm Gel..Gram.) 15 gm PO Q15M PRN; Protocol PRN Reason: per Hypoglycemia Standing Ord. Guaifenesin (Guaifenesin 100 Mg/5 Ml Liquid) 5 ml PO Q4H PRN PRN Reason: Cough Ampicillin Sodium/Sulbactam (Sodium 3 gm/ Sodium Chloride) 100 mls @ 200 mls/hr IV Q6H [facility] Last Infusion: 05/12/23 13:22 Dose: Infused Insulin Human Lispro (Insulin Lispro 100 Unit/Ml 3 Ml Vial) 0 unit SUBCUT QIDACHS [facility]; Protocol Last Admin: 05/12/23 12:33 Dose: Not Given Levothyroxine Sodium (Levothyroxine Sodium 50 Mcg Tablet) 50 mcg PO DAILY@0630 [facility] Last Admin: 05/12/23 05:33 Dose: 50 mcg Linezolid (Linezolid 600 Mg Tablet) 600 mg PO BID [facility] Last Admin: 05/12/23 07:49 Dose: 600 mg Ondansetron HCl (Ondansetron Hcl 4 Mg/2 Ml Vial) 4 mg IVPUSH Q8H PRN PRN Reason: Nausea and Vomiting Last Admin: 05/12/23 06:25 Dose: 4 mg Pantoprazole Sodium (Pantoprazole Sodium 40 Mg/10 Ml Vial) 40 mg IVPUSH BID@0630,1630 [facility] Last Admin: 05/12/23 05:35 Dose: 40 mg Sertraline HCl (Sertraline Hcl 50 Mg Tablet) 50 mg PO DAILY [facility] Last Admin: 05/12/23 07:49 Dose: 50 mg Sodium Chloride (0.9 % Sodium Chloride Flush 3 Ml Syringe) 3 ml IVFLUSH QSHIFT [facility] Last Admin: 05/12/23 15:46 Dose: 3 ml Trazodone HCl (Trazodone Hcl 25 Mg Halftab) 25 mg PO BEDTIME [facility] Last Admin: 05/11/23 21:35 Dose: 25 mg Home Medications Medication Instructions Recorded Confirmed Last Taken Type amlodipine 10 mg tablet 10 mg PO DAILY 04/07/23 05/11/23 Unknown History apixaban 5 mg tablet (Eliquis) 5 mg PO BID 04/07/23 05/11/23 Unknown History carvedilol 12.5 mg tablet 12.5 mg PO BID 04/07/23 05/11/23 Unknown History empagliflozin 10 mg tablet 10 mg PO DAILY 04/07/23 05/11/23 Unknown History (Jardiance) levothyroxine 50 mcg capsule 50 mcg PO DAILY 04/07/23 05/11/23 Unknown History pantoprazole 40 mg tablet,delayed 40 mg PO DAILY 04/07/23 05/11/23 Unknown History release sertraline 50 mg tablet 50 mg PO DAILY 04/07/23 05/11/23 Unknown History trazodone 50 mg tablet 25 mg PO BEDTIME 04/07/23 05/11/23 Unknown History Lactobacil.acidophilus-Bifido.animalis 1 cap PO DAILY 05/11/23 05/11/23 Unknown History 5 billion cell sprinkle capsule (Probiotic) acetaminophen 325 mg tablet 650 mg PO Q6H PRN Pain 05/11/23 05/11/23 Unknown History atorvastatin 40 mg tablet 40 mg PO BEDTIME 05/11/23 05/11/23 Unknown History calcitriol 0.25 mcg capsule 0.25 mcg PO DAILY 05/11/23 05/11/23 Unknown History ciclopirox 0.77 % topical gel 1 appl topical BID 05/11/23 05/11/23 Unknown History famotidine 10 mg tablet (Pepcid AC) 10 mg PO BID PRN Nausea 05/11/23 05/11/23 Unknown History guaifenesin 100 mg/5 mL oral liquid 200 mg PO Q4H PRN Cough 05/11/23 05/11/23 Unknown History ondansetron 4 mg disintegrating 4 mg PO Q6H PRN Nausea 05/11/23 05/11/23 Unknown History tablet tramadol 50 mg tablet 50 mg PO Q8H PRN Pain 05/11/23 05/11/23 Unknown History Exam Exam Date and Time: May 12, 2023 1612 Height,Weight and Vital Signs: Height 6 ft 1 in Weight 97.5 kg Last Vital Signs Temp 98.2 F 05/12/23 12:00 Pulse 81 05/12/23 12:00 Resp 20 05/12/23 12:00 BP 142/72 H 05/12/23 12:00 Pulse Ox 95 05/12/23 12:00 O2 Del Method Room Air 05/12/23 12:00 Vital Signs Temp Pulse Resp BP Pulse Ox O2 Del Method 05/12/23 16:23 99.2 F 81 14 185/92 H 93 Room Air 05/12/23 12:00 98.2 F 81 20 142/72 H 95 Room Air 05/12/23 07:44 97.9 F 76 18 199/89 H 96 Room Air 05/12/23 03:55 98.4 F 80 18 175/88 H 97 Room Air 05/11/23 23:31 98.4 F 83 18 180/76 H 96 Room Air 05/11/23 19:08 99.4 F 81 18 130/71 98 Room Air 05/11/23 17:52 98.3 F 80 17 187/91 H 05/11/23 17:15 82 14 152/76 H 94 Room Air Pertinent Lab Results Pertinent Lab Results: Laboratory Tests 05/11/23 05/11/23 05/11/23 10:07 10:21 10:36 WBC 7.4 8.5 RBC 3.10 L D 3.26 L Hgb 8.8 L D 9.3 L Hct 25.9 L D 27.4 L MCV 83.5 84.0 MCH 28.4 28.5 MCHC 34.0 33.9 RDW 12.9 12.9 Plt Count 158 L D 172 MPV 10.5 10.4 Immature Gran % (Auto) 0.4 0.5 H Neut % (Auto) 79.4 H 80.6 H Lymph % (Auto) 11.0 L 10.5 L [place] % (Auto) 6.6 5.9 Eos % (Auto) 2.2 2.1 Baso % (Auto) 0.4 0.4 Lymph # (Auto) 0.8 L 0.9 L [place] # (Auto) 0.5 0.5 Eos # (Auto) 0.2 0.2 Baso # (Auto) 0.0 0.0 Abs Immat Gran (auto) 0.03 0.04 H Absolute Neuts (auto) 5.9 6.8 Absolute Nucleated RBC 0.000 0.000 Nucleated RBC % (auto) 0.0 0.0 PT 24.3 H INR 2.0 H Sodium 140 Potassium 3.8 Chloride 111 H Carbon Dioxide 19 L Anion Gap 14 BUN 48 H Creatinine 3.68 H Estim Creat Clear Calc 28.1 Estimated GFR 17 POC Glucose Random Glucose 139 H Estimat Average Glucose Hemoglobin A1c % Calcium 8.0 L Magnesium 1.4 L* Total Bilirubin 0.3 AST 12 ALT 22 Alkaline Phosphatase 89 Total Protein 6.7 Albumin 3.9 Stool Occult Blood POSITIVE Blood Type O Positive Antibody Screen NEGATIVE 05/11/23 05/11/23 05/12/23 13:52 21:29 07:42 WBC 9.9 RBC 3.55 L Hgb 10.1 L Hct 30.5 L MCV 85.9 MCH 28.5 MCHC 33.1 RDW 12.8 Plt Count 178 MPV 10.6 Immature Gran % (Auto) 0.3 Neut % (Auto) 87.2 H Lymph % (Auto) 7.4 L [place] % (Auto) 3.7 Eos % (Auto) 1.0 Baso % (Auto) 0.4 Lymph # (Auto) 0.7 L [place] # (Auto) 0.4 Eos # (Auto) 0.1 Baso # (Auto) 0.0 Abs Immat Gran (auto) 0.03 Absolute Neuts (auto) 8.6 H Absolute Nucleated RBC 0.000 Nucleated RBC % (auto) 0.0 PT INR Sodium Potassium Chloride Carbon Dioxide Anion Gap BUN Creatinine Estim Creat Clear Calc Estimated GFR POC Glucose 120 H 142 H Random Glucose Estimat Average Glucose 166 Hemoglobin A1c % 7.4 H Calcium Magnesium Total Bilirubin AST ALT Alkaline Phosphatase Total Protein Albumin Stool Occult Blood Blood Type Antibody Screen 05/12/23 05/12/23 10:48 12:20 WBC 8.8 RBC 3.02 L Hgb 8.5 L Hct 25.1 L MCV 83.1 MCH 28.1 MCHC 33.9 RDW 13.0 Plt Count 177 MPV 10.3 Immature Gran % (Auto) Neut % (Auto) Lymph % (Auto) [place] % (Auto) Eos % (Auto) Baso % (Auto) Lymph # (Auto) [place] # (Auto) Eos # (Auto) Baso # (Auto) Abs Immat Gran (auto) Absolute Neuts (auto) Absolute Nucleated RBC 0.000 Nucleated RBC % (auto) 0.0 PT 14.3 H D INR 1.2 H Sodium 144 Potassium 3.9 Chloride 113 H Carbon Dioxide 19 L Anion Gap 16 BUN 36 H Creatinine 3.22 H Estim Creat Clear Calc 31.8 Estimated GFR 20 POC Glucose 137 H Random Glucose 143 H Estimat Average Glucose Hemoglobin A1c % Calcium 8.6 D Magnesium 1.9 Total Bilirubin AST ALT Alkaline Phosphatase Total Protein Albumin Stool Occult Blood Blood Type Antibody Screen POC 123 Airway Mallampati Class: IV (TMJ syndrome ) TM Dist: >3cm Neck ROM: Full Loose/Missing/Broken Teeth: Yes (Some missing. Poor dentition- many broken) Heart: RRR Lungs: CTAB Assessment and Plan Assessment Anesthesia Assessment: Anesthesia Plan Discussed and Chart Reviewed Final Anesthetic Review Family History of Problems with Anesthesia: No History of Problems with Anesthesia: No NPO: Yes ASA Class: IV and Emergency Final Preanesthetic Review: No Changes in Pt Med Stat, Meds/Allgs Chart Reviewed, Consent Obtained/Reviewed and Anes Risks/Benef Reviewed Patient Risk: High Procedure Risk: Intermediate Assessment/Block/Sedation in SS: Assess/Block/Sedation-SS Anesthetic Plan Anesthetic Plan: GA Disposition: Standard PACU and Inp. Admit - Standard Bed
[2023-05-12 16:37] LABS: Glucose, Whole Blood 123 mg/dL (60-115)
--- NOTE | 2023-05-12 17:35 | PM.EVENT ---
Event Note Date of Service: 05/12/23 Event Note: GI EGD-Full note dictated Findings: 1. Small hiatal hernia with mild changes of reflux. No esophagitis. 2. Normal stomach and duodenum. Normal gastric peristalsis. 3. No blood nor coffee grounds in the UGI tract. Imp: No sign of previous nor active UGI bleed. The vomiting of blood and coffee grounds was in relation to his having swallowed blood from his epistaxis Rec: Advance diet and change to an oral PPI in regard to his chronic GERD and vomiting. No GI contraindication to his resuming his blood thinners. He should be on a bowel regimen to treat his reported chronic constipation, i.e.: Miralax BID with Metamucil BID. D/W Muna Gomez, Clergy [employer] Continuous Churn, in detail. Thanks Time Spent With Patient Time: Total time managing care of this patient today ____ minutes.
--- NOTE | 2023-05-12 17:55 | P.BOP_ITS ---
Brief Operative Note Date of Service: 05/12/23 Pre-op diagnosis: ? of UGI bleed Post-op diagnosis: other (Hiatal hernia, mild GERD, no signs of GI bleeding) Procedure: EGD Surgeon: Wong Nichols Anesthesia: ARMANI Was an Intelligence Officer used for this Procedure?: No Estimated blood loss (mL): 0 Pathology: none sent Condition: stable Disposition: PACU
--- NOTE | 2023-05-12 18:33 | PC.NURSE ---
Dr. Martínez cleared patient to be discharged from PACU and brought back to 4th floor. States to tell floor to treat BP. Message relayed to floor RN.
[2023-05-12 18:43] LABS: Glucose, Whole Blood 127 mg/dL (60-115)
[2023-05-12] MEDS: Omeprazole 20 MG CAPSULE.DR PO (19:04)
[2023-05-12] MEDS: traZODone HCL 25 MG HALFTAB PO (20:24)
[2023-05-12] MEDS: Atorvastatin Calcium 40 MG TABLET PO (20:24)
[2023-05-13] VITALS: BP 159/83; PULSE 73; RESP 18; TEMP 37; O2SAT 95
[2023-05-13] MEDS: Ampicillin Sodium/Sulbactam Na 3 GM in 0.9 % Sodium Chloride 100 ML IV ×2 (00:09→05:35)
[2023-05-13] MEDS: 0.9 % Sodium Chloride Flush 3 ML SYRINGE IVFLUSH ×2 (00:10→09:39)
[2023-05-13] MEDS: Lactated Ringers 1,000 ML 100 ML IVCONT ×2 (00:48→10:51)
--- NOTE | 2023-05-13 00:50 | OP_ITS ---
DATE OF SERVICE: 05/12/2023 SURGEON: Wong Nichols MD INDICATIONS: The patient presents for evaluation of question of upper GI bleeding. Full consent has been obtained from the patient for this, including risks of bleeding and perforation. PREOPERATIVE DIAGNOSIS: Question of upper gastrointestinal bleeding. POSTOPERATIVE DIAGNOSIS: PROCEDURE PERFORMED: Esophagogastroduodenoscopy. ESTIMATED BLOOD LOSS: COMPLICATIONS: ANESTHESIA: General anesthesia. ASSISTANTS: SPECIMENS: POSTOPERATIVE DIAGNOSES: Question of upper gastrointestinal bleeding, hiatal hernia, mild changes of reflux, no sign of any previous nor active gastrointestinal bleeding. DESCRIPTION OF PROCEDURE: The patient was kept in the supine position. The Olympus video gastroscope was passed in the posterior oropharynx and upper esophagus under direct vision. The scope was passed slowly to the distal esophagus. The gastroesophageal junction appeared at 38 cm. There was no sign of any esophagitis nor Juju-Nichols tear. There were some slight changes of reflux with some slight irregularity of the EG junction but no evidence of any esophagitis nor any definitive evidence of Ferreira's mucosa. The scope entered the stomach. There was a small hiatal hernia. The scope was advanced to the pylorus and the duodenum was cannulated to the descending portion. The duodenum including the bulb appeared normal without any sign of mass or ulceration. There was no blood nor coffee-grounds in the duodenum. The scope was withdrawn back to the stomach. The gastric antrum and body appeared normal with good peristalsis. The scope was retroflexed visualizing the proximal stomach carefully, which appeared normal, without any sign of mass or ulceration. The scope was straightened. There was no blood nor coffee-grounds material in the stomach. The scope was withdrawn back to the esophagus. The esophageal mucosa appeared normal. The scope was withdrawn from the patient. He tolerated the procedure well and was returned to the recovery area in stable condition. IMPRESSION: Hiatal hernia, gastroesophageal reflux. Otherwise, normal upper endoscopy without any sign of active nor previous gastrointestinal bleeding. Overall, I suspect his hematemesis and coffee-grounds emesis was in relation to his having swallowed blood due to his epistaxis. PLAN: At this point, I would recommend advancing his diet and changing him to an oral PPI. He does have a history of reflux and fairly chronic vomiting. I do not see any GI contraindication to resuming his blood thinners, but given the recent epistaxis this will need to be decided upon by his medical team. He should be on a bowel regimen to treat his reported chronic constipation with something such as MiraLAX and Metamucil twice a day with plenty of fluids. If he continues to have significant episodes of vomiting, then we might want to consider a nuclear medicine gastric emptying study to rule out gastroparesis given his underlying diabetes. This has been discussed with Muna Gomez RN, the Clergy [employer] Drill Operator. MD LUZMA Ndiaye/ROHAN / [phone] MTDD
[2023-05-13 04:00] VITALS: BP 143/71; PULSE 80; RESP 18; TEMP 37.6; O2SAT 95
[2023-05-13] MEDS: Levothyroxine Sodium 50 MCG TABLET PO (05:35)
[2023-05-13] MEDS: Omeprazole 20 MG CAPSULE.DR PO (05:35)
[2023-05-13 07:17] LABS: Glucose, Whole Blood 126 mg/dL (60-115)
[2023-05-13 07:35] VITALS: BP 168/77; PULSE 81; RESP 18; TEMP 36.1; O2SAT 94
[2023-05-13 08:11] LABS: Hematocrit 24.6 % (42.0-52.0); Hemoglobin 8.2 g/dl (14.0-18.0); Mean Corpuscular HGB Conc 33.3 g/dl (31.0-36.0); Mean Corpuscular Hemoglobin 28.8 pg (27.0-33.0); Mean Corpuscular Volume 86.3 fL (80.0-98.0); Mean Platelet Volume 10.5 fL (9.4-12.4); Platelet Count 171 X10*3/uL (160-400); Red Blood Count 2.85 X10*6/uL (4.60-5.80); Red Cell Distribution Width 13.2 % (11.0-16.0); White Blood Count 8.9 X10*3/uL (4.8-10.8)
[2023-05-13 08:26] LABS: Anion Gap 15 (12-20); Blood Urea Nitrogen 27 mg/dL (9-16); Calcium 8.4 mg/dL (8.4-10.2); Carbon Dioxide 22 mmol/L (22-29); Chloride 109 mmol/L (96-108); Creatinine Clr Calc Pharmacy 34.3; Estimated Glomerular Filt Rate 22; Glucose Random 134 mg/dL (60-115); Potassium 3.5 mmol/L (3.3-5.1); Sodium 142 mmol/L (135-145)
[2023-05-13] MEDS: Linezolid 600 MG TABLET PO (09:38)
[2023-05-13] MEDS: Empagliflozin 10 MG TABLET PO (09:38)
[2023-05-13] MEDS: carvediloL 12.5 MG TABLET PO (09:38)
[2023-05-13] MEDS: calcitrioL 0.25 MCG CAPSULE PO (09:38)
[2023-05-13] MEDS: amLODIPine Besylate 10 MG TABLET PO (09:38)
[2023-05-13] MEDS: Sertraline HCL 50 MG TABLET PO (09:39)
[2023-05-13] MEDS: ondansetron HCL 4 MG/2 ML VIAL IVPUSH (09:39)
[2023-05-13] MEDS: Amoxicillin/Potassium Clav 875 MG TABLET PO (10:50)
[2023-05-13 11:09] LABS: Glucose, Whole Blood 138 mg/dL (60-115)
[2023-05-13 11:17] VITALS: BP 165/81; PULSE 82; RESP 18; TEMP 36.6; O2SAT 96
--- NOTE | 2023-05-13 12:58 | MHC.CM.PN ---
DP: PT HAS BEEN MEDICALLY CLEARED FOR DC BACK TO [facility] FOR 20/03 CARE. CENTER (NURSE LAM) UPDATED. RN AWARE. MESSAGE LEFT FOR SISTER ALEXANDR. S TRANSPORT BOOKED FOR 2 PM VIA [place].
--- NOTE | 2023-05-13 13:04 | PM.DS ---
DS: Providers Provider Date of Service: 05/13/23 Date of admission: 05/11/23 17:35 Date of discharge: 05/13/23 Primary care physician: Hakeem Colorado MD Consults: 05/11/23 10:33 Consult to Care Team Stat Comment: Reason for consultation: UGIB 05/11/23 17:50 Consult to Gastroenterology Routine Consulting Provider: Wong Nichols Reason for consultation: UGIB DS: Diagnosis Discharge Diagnosis (1) Epistaxis: Status: Acute (2) Chronic nausea: Status: Acute (3) Acute on chronic kidney failure: Status: Acute (4) Osteomyelitis: Status: Acute (5) Renal mass: Status: Acute (6) Hypomagnesemia: Status: Acute DS: Summary Hospital Course Hospital Course: from my admission H+P, 05/11/23: 53yo M with CKD4, DM2, HTN, hypothyroidism, hx L-sided CVA [2019], hx DVT now on apixaban, and osteomyelitis of the 5th middle and proximal phalanges for which he is on 6 wk of PO linezolid. 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 He presents with vomiting for the past 2 days but actually he states that he has had nausea and vomiting all my life . He developed a nosebleed from the R nare at 0430 this AM and actually has had several episodes of epistaxis this week. Direct pressure and anterior packing by nursing staff did not stop the bleed. In the ED, a Rhino Rocket coated in TXA was placed with hemostasis. He developed 2 episodes of projectile coffee-ground emesis and the roofer assistant Dr Nichols was consulted. He was given vitamin K and FFP. Hemoglobin was stable at 8.8->9.3->10.1. INR 2. SCr 3.68 [3.33 on 04/07/23]. Denies history of GI bleeding or liver cirrhosis. He denies fever, chills, lightheadedness, dyspnea, chest pain, or abdominal pain. 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 He presented with posterior epistaxis requiring Rhino Rocket, then developed coffee-ground emesis x2 concerning for acute UGIB. He was admitted to the [facility] under the care of the hospitalist service. Hospital course by problem: UGIB, not - Treated with IV PPI and H+H stable. Apixaban was held and the patient was given vitamin K and FFP. EGD done 05/12/[address] Wong Nichols showed: 1. Small hiatal hernia with mild changes of reflux. No esophagitis. 2. Normal stomach and duodenum. Normal gastric peristalsis. 3. No blood nor coffee grounds in the UGI tract. So suspect the UGIB was swallowed blood from epistaxis. epistaxis - Rhino-Rocket remained in place and he was given prophylaxis with Unasyn, then Augmentin. He should continue Augmentin until the Rhino-Rocket is out. He will need to come to the ED 05/14/23 for removal of the Rhino-Rocket. Continue to hold apixaban until seen by ENT; should make appointment with ENT week of 05/15/23. hypoMg - repleted incidental R renal mass - outpt contrast MRI osteomyelitis of 5th phalanx - continue PO linezolid prescribed as outpt by Dr Perez [ID], end date 05/20/23 SUZY/CKD4 - Cr improved to 2.99 with the above measures He was discharged back to [facility] on 05/13/23 and needs Primary Care, ENT, and Nephrology follow-up. To resume apixaban after discussion with the ENT and his PCP. Time Spent with Patient Time attestation: Total time managing care of this patient today _40___ minutes. Discharge coordination time: Greater than 30 minutes Quality: Safe Use of Opioids Does Pt have an Active Cancer Diagnosis on the Problem List?: No Quality: Stroke Does the patient have a stroke diagnosis?: No Physical Exam Vital Signs: Vital Signs: Last Vital Signs Temp 97.8 F 05/13/23 11:17 Pulse 82 05/13/23 11:17 Resp 18 05/13/23 11:17 BP 165/81 H 05/13/23 11:17 Pulse Ox 96 05/13/23 11:17 O2 Del Method Room Air 05/13/23 11:17 O2 Flow Rate 4 05/12/23 17:40 BMI result Body Mass Index 28.4 Gen: in no acute distress HEENT: sclera anicteric, moist mucus membranes, Rhino-Rocket in place with dried blood on nare Neck: supple Lungs: clear to auscultation bilaterally Heart: regular rate and rhythm, no murmurs Abd: soft, non-tender, non-distended Ext: no edema Skin: warm/well-perfused Neuro: alert and oriented x3, chronic L hemiplegia Psych: appropriate affect DS: Data Data Completed and Pending Completed studies during hospitalization [Text1]: Laboratory Results WBC 8.9 X10*3/uL (4.8-10.8) 05/13/23 07:30 RBC 2.85 X10*6/uL (4.60-5.80) L 05/13/23 07:30 Hgb 8.2 g/dl (14.0-18.0) L 05/13/23 07:30 Hct 24.6 % (42.0-52.0) L 05/13/23 07:30 MCV 86.3 fL (80.0-98.0) 05/13/23 07:30 MCH 28.8 pg (27.0-33.0) 05/13/23 07:30 MCHC 33.3 g/dl (31.0-36.0) 05/13/23 07:30 RDW 13.2 % (11.0-16.0) 05/13/23 07:30 Plt Count 171 X10*3/uL (160-400) 05/13/23 07:30 MPV 10.5 fL (9.4-12.4) 05/13/23 07:30 Immature Gran % (Auto) 0.3 % (0.0-0.4) 05/11/23 13:52 Neut % (Auto) 87.2 % (45-73) H 05/11/23 13:52 Lymph % (Auto) 7.4 % (20-40) L 05/11/23 13:52 [place] % (Auto) 3.7 % (2-11) 05/11/23 13:52 Eos % (Auto) 1.0 % (0-4) 05/11/23 13:52 Baso % (Auto) 0.4 % (0-2) 05/11/23 13:52 Lymph # (Auto) 0.7 X10*3/uL (1.2-4.9) L 05/11/23 13:52 [place] # (Auto) 0.4 X10*3/uL (0.1-1.2) 05/11/23 13:52 Eos # (Auto) 0.1 X10*3/uL (0.0-0.4) 05/11/23 13:52 Baso # (Auto) 0.0 X10*3/uL (0.0-0.2) 05/11/23 13:52 Abs Immat Gran (auto) 0.03 X10*3/uL (0.00-0.03) 05/11/23 13:52 Absolute Neuts (auto) 8.6 x10*3/uL (2.0-8.3) H 05/11/23 13:52 Absolute Nucleated RBC 0.000 X10*3/uL (0.0-0.012) 05/13/23 07:30 Nucleated RBC % (auto) 0.0 /100WBC (0.0-0.2) 05/13/23 07:30 PT 14.3 SEC (11.1-13.3) H D 05/12/23 10:48 INR 1.2 (0.9-1.1) H 05/12/23 10:48 Sodium 142 mmol/L (135-145) 05/13/23 07:30 Potassium 3.5 mmol/L (3.3-5.1) 05/13/23 07:30 Chloride 109 mmol/L (96-108) H 05/13/23 07:30 Carbon Dioxide 22 mmol/L (22-29) 05/13/23 07:30 Anion Gap 15 (12-20) 05/13/23 07:30 BUN 27 mg/dL (9-16) H 05/13/23 07:30 Creatinine 2.99 mg/dL (0.5-1.4) H 05/13/23 07:30 Estim Creat Clear Calc 34.3 05/13/23 07:30 Estimated GFR 22 05/13/23 07:30 POC Glucose 138 mg/dL (60-115) H 05/13/23 11:05 Random Glucose 134 mg/dL (60-115) H 05/13/23 07:30 Estimat Average Glucose 166 mg/dL 05/11/23 13:52 Hemoglobin A1c % 7.4 % (<6.0) H 05/11/23 13:52 Calcium 8.4 mg/dL (8.4-10.2) 05/13/23 07:30 Magnesium 1.9 mg/dL (1.6-2.6) 05/12/23 10:48 Total Bilirubin 0.3 mg/dL (0.0-1.0) 05/11/23 10:07 AST 12 U/L (5-37) 05/11/23 10:07 ALT 22 U/L (0-40) 05/11/23 10:07 Alkaline Phosphatase 89 U/L (39-117) 05/11/23 10:07 Total Protein 6.7 g/dL (6.5-8.0) 05/11/23 10:07 Albumin 3.9 g/dL (3.5-5.0) 05/11/23 10:07 Stool Occult Blood POSITIVE (NEGATIVE) 05/11/23 10:21 Blood Type O Positive 05/11/23 10:36 Antibody Screen NEGATIVE 05/11/23 10:36 Impressions Chest X-Ray 05/11/23 12:04 IMPRESSION: Unremarkable examination. Abdomen/Pelvis CT 05/11/23 13:19 IMPRESSION: 1. A cause for the patient's vomiting and vomiting has not been found. 2. Indeterminate 3 cm right renal mass. Neoplasm needs to be excluded. Although ultrasound may be of value, I suspect that. Postcontrast cross-sectional imaging would be needed such as dedicated renal CT scan. 3. Incidental note made of cholecystectomy, colonic diverticulosis without diverticulitis, mild BPH and fusion of the right SI joint. Fleischner guidelines were followed. Discharge Plan Discharge Anticipated Discharge Date/Time: 05/13/23 12:44 Patient Disposition: Xfer Other Discharge Diagnosis: epistaxis nausea/vomiting; no GI bleed hypomagnesemia incidental R renal mass osteomyelitis of the R 5th phalanx SUZY/CKD4 Referrals: Kathy Lee [Outside] - 1 Week (RETURN FOR RESUMPTION CARE HOME CARE) Hakeem Colorado MD [Primary Care Provider] - 1 Week Vernon Ohara [Physician] - 3-5 Days Discharge Medications: New amoxicillin-pot clavulanate 875-125 mg Tablet 1 tab PO Q12H Qty: 4 0RF polyethylene glycol 3350 [Miralax] 17 gram/dose powder 17 g PO BID Qty: 850 0RF Metamucil 3.4 gram/5.4 gram powder 1 tbsp PO BID Qty: 660 0RF Rx Instructions: mix into at least 8 oz of water or juice before administering Continued guaifenesin 100 mg/5 mL Liquid 200 mg PO Q4H PRN (Reason: Cough) famotidine [Pepcid AC] 10 mg Tablet 10 mg PO BID PRN (Reason: Nausea) tramadol 50 mg Tablet 50 mg PO Q8H PRN (Reason: Pain) acetaminophen 325 mg Tablet 650 mg PO Q6H PRN (Reason: Pain) ondansetron 4 mg Tablet,Disintegrating 4 mg PO Q6H PRN (Reason: Nausea) calcitriol 0.25 mcg Capsule 0.25 mcg PO DAILY atorvastatin 40 mg Tablet 40 mg PO BEDTIME ciclopirox 0.77 % Gel 1 appl TOPICAL BID Protocol: Apply to: Apply to: AFFECTED NAILS Probiotic 5 billion cell Capsule, Sprinkle 1 cap PO DAILY trazodone 50 mg tablet 25 mg PO BEDTIME levothyroxine 50 mcg capsule 50 mcg PO DAILY pantoprazole 40 mg tablet,delayed release (DR/EC) 40 mg PO DAILY amlodipine 10 mg tablet 10 mg PO DAILY Jardiance 10 mg tablet 10 mg PO DAILY sertraline 50 mg tablet 50 mg PO DAILY carvedilol 12.5 mg tablet 12.5 mg PO BID Rx Instructions: must administer with a meal/food linezolid 600 mg tablet 600 mg PO BID 42 Days Qty: 84 0RF Rx Instructions: ORDERED FOR 42 DAYS, END DATE OF 05/20/23 No Action Eliquis 5 mg tablet 5 mg PO BID Discharge Orders: Discharge Order (Routine); Ordered 05/13/23 Ordered By: Hector Holt Diet: Diabetic diet Activity on Discharge: As tolerated Stand Alone Forms: Patient Portal Discharge page Care Plan Goals: Treatment of nosebleed Diagnosis and management of peristent nausea/vomiting Diagnosis and management of incidental right renal cyst Cure of bone infection Renal health Health Concerns: epistaxis - Rhino-Rocket in place. Return to [facility] ED 05/14/23 in afternoon for removal. While Rhino-Rocket is in place, take amoxicillin-clavulanate 875-125 mg twice daily. Make appointment with ENT Dr Ohara to be seen week of 05/15/23. Hold Eliquis until you see the ENT. nausea/vomiting; no GI bleed - Frequent, small meals. Consider nuclear medicine Gastric Emptying Study and/or metoclopramide treatment after done with linezolid hypomagnesemia - Repleted incidental R renal mass - See your PCP and arrange for MRI with contarst. osteomyelitis of the R 5th phalanx - Complete linezolid as prescribed by Dr Perez. chronic constipation - Increase fiber intake. Take MiraLax and Metamucil twice daily. SUZY/CKD4 - Routine follow-up with your shopping investigator Dr Nava. Please follow up with your primary care doctor within 1 week. Return to the hospital if you experience recurrent or worsening symptoms. Plan of Treatment: as above Assessment: See Discharge Summary.
--- NOTE | 2023-05-13 20:33 | HO.POSTANES ---
Post Anesthesia Evaluation Post Anesthesia Evaluation Date of Service: 05/13/23 Vital Signs: Vital Signs Temp Pulse Resp BP Pulse Ox O2 Del Method 05/13/23 11:17 97.8 F 82 18 165/81 H 96 Room Air Anesthesia: Monitored Mental Status: Awake Pain Control: Satisfactory Nausea/Vomiting: None Hydration: Adequate Anesthesia-Related Issues: No Anes. Related Issues
== END 2023-05-13 14:53 | disposition other institution (70) | DRG 115 ==
LOC: HO.ED 15:17 → HO.EDOVER 17:41 → HO.IMC 17:50
PROVIDERS: Internal Medicine; Physician Assistant; Admitting Provider Family Medicine; Emergency Provider Emergency Medicine; PCP Family Medicine; Visit Provider Family Medicine
PROC: 0DJ08ZZ Inspection of Upper Intestinal Tract, Via Natural or Artificial Opening Endoscopic (ICD-10-PCS; CPT 43235; principal; 2023-05-12 15:40)
DX: R04.0 Epistaxis (principal); N18.4 Chronic kidney disease, stage 4 (severe); E11.22 Type 2 diabetes mellitus with diabetic chronic kidney disease; N17.9 Acute kidney failure, unspecified; E11.69 Type 2 diabetes mellitus with other specified complication; M86.9 Osteomyelitis, unspecified; I12.9 Hypertensive chronic kidney disease with stage 1 through stage 4 chronic kidney disease, or unspecified chronic kidney disease; E83.42 Hypomagnesemia; Z66 Do not resuscitate; K44.9 Diaphragmatic hernia without obstruction or gangrene; K21.9 Gastro-esophageal reflux disease without esophagitis; E78.5 Hyperlipidemia, unspecified; N28.89 Other specified disorders of kidney and ureter; K59.09 Other constipation; Z86.73 Personal history of transient ischemic attack (TIA), and cerebral infarction without residual deficits; Z23 Encounter for immunization; Z79.01 Long term (current) use of anticoagulants; Z79.890 Hormone replacement therapy; Z79.899 Other long term (current) drug therapy
CPT/HCPCS: 36415; 71045; 74176; 80048; 80053; 82272; 82947; 83036; 83735; 85025; 85027; 85610; 86850; 86900; 86901; 90686; 99285; J0295; J0330; J2250; J2354; J2405; J2597; J3010; J3430; J3475; P9017

== ENCOUNTER → 2023-05-11 17:35 | Outpatient (BNV) | payer BC, SELFPAY | PROVIDERS: Admitting Provider Family Medicine; Emergency Provider Emergency Medicine; PCP Family Medicine; Visit Provider Family Medicine | DX: R04.0 Epistaxis (principal); N17.9 Acute kidney failure, unspecified; N18.4 Chronic kidney disease, stage 4 (severe); M86.9 Osteomyelitis, unspecified; E83.42 Hypomagnesemia; N28.89 Other specified disorders of kidney and ureter; R11.0 Nausea | CPT/HCPCS: 99223; 99232; 99239 ==

== ENCOUNTER 2023-05-14 13:26 | Emergency (ER) | payer BC, SELFPAY ==
[2023-05-14 14:37] VITALS: BP 127/70; PULSE 81; RESP 18; TEMP 36.8; O2SAT 99; BMI 30.1
--- NOTE | 2023-05-14 14:45 | ED.GENADULT ---
HPI - General Adult General Chief complaint: General Medical Stated complaint: tube removed from nose? Time Seen by Provider: 05/14/23 14:48 Source: patient Mode of arrival: ambulatory Limitations: no limitations History of Present Illness HPI narrative: 53 Yold male with pmh Upper GI presents to the ED for rhino-rocket removal. Patient was advised by hospitalists to retrun to the ED on 05/14 for rhino-rocket removal. Patient denies any complaints. Related Data Home Medications Medication Instructions Recorded Confirmed amlodipine 10 mg tablet 10 mg PO DAILY 04/07/23 05/11/23 apixaban 5 mg tablet (Eliquis) 5 mg PO BID 04/07/23 05/11/23 carvedilol 12.5 mg tablet 12.5 mg PO BID 04/07/23 05/11/23 empagliflozin 10 mg tablet 10 mg PO DAILY 04/07/23 05/11/23 (Jardiance) levothyroxine 50 mcg capsule 50 mcg PO DAILY 04/07/23 05/11/23 pantoprazole 40 mg tablet,delayed 40 mg PO DAILY 04/07/23 05/11/23 release sertraline 50 mg tablet 50 mg PO DAILY 04/07/23 05/11/23 trazodone 50 mg tablet 25 mg PO BEDTIME 04/07/23 05/11/23 Lactobacil.acidophilus-Bifido.animalis 1 cap PO DAILY 05/11/23 05/11/23 5 billion cell sprinkle capsule (Probiotic) acetaminophen 325 mg tablet 650 mg PO Q6H PRN Pain 05/11/23 05/11/23 atorvastatin 40 mg tablet 40 mg PO BEDTIME 05/11/23 05/11/23 calcitriol 0.25 mcg capsule 0.25 mcg PO DAILY 05/11/23 05/11/23 ciclopirox 0.77 % topical gel 1 appl topical BID 05/11/23 05/11/23 famotidine 10 mg tablet (Pepcid AC) 10 mg PO BID PRN Nausea 05/11/23 05/11/23 guaifenesin 100 mg/5 mL oral liquid 200 mg PO Q4H PRN Cough 05/11/23 05/11/23 ondansetron 4 mg disintegrating 4 mg PO Q6H PRN Nausea 05/11/23 05/11/23 tablet tramadol 50 mg tablet 50 mg PO Q8H PRN Pain 05/11/23 05/11/23 Previous Rx's Medication Instructions Recorded linezolid 600 mg tablet 600 mg PO BID 42 days #84 tabs 04/07/23 amoxicillin 875 mg-potassium 1 tab PO Q12H #4 tabs 05/13/23 clavulanate 125 mg tablet polyethylene glycol 3350 17 17 g PO BID #850 grams 05/13/23 gram/dose oral powder (Miralax) psyllium husk 3.4 gram/5.4 gram 1 tbsp PO BID #660 grams 05/13/23 oral powder (Metamucil) Allergies Allergy/AdvReac Type Severity Reaction Status Date / Time gabapentin Allergy Unknown Verified 05/14/23 14:37 Review of Systems Review of Systems: rhino-rocket removal Yes all other systems are reviewed and are negative [facility] Past Medical History Medical History Renal failure PFO (patent foramen ovale) Hypertension DVT (deep venous thrombosis) Diabetes mellitus Left-sided cerebrovascular accident (CVA) Osteomyelitis Social History Social History Housing: [facility] Patient Tobacco Use Status: Former Tobacco user Advance Directives: No Advance Directives Information Provided: No service: No Physical Exam ED Vital Signs: Vital Signs - 24 hr 05/14/23 14:37 Temperature 98.2 F Pulse Rate 81 Respiratory Rate 18 Blood Pressure 127/70 Pulse Oximetry 99 Oxygen Delivery Method Room Air BMI result Body Mass Index 30.1 Const General: cooperative, healthy appearing, comfortable, no acute distress, well developed, alert, awake and Physically active Orientation/consciousness: oriented to person, oriented to place, oriented to time and patient oriented x3 HENMT Head: Yes normal to inspection, Yes No palpable skull fracture present, Yes normocephalic and Yes atraumatic Ears: hearing grossly normal bilaterally, external ears normal, TM's normal bilaterally, TM normal on the right, TM normal on the left, EAC's normal, mastoids normal and no periauricular adenopathy General nose exam: Normal external nose present (rhino-rocket in right nares) and Normal nares present Throat: Yes posterior oropharynx normal, Yes tonsils normal and Yes uvula midline Eyes General: appearance normal, both eyes and all related structures Neck Neck: Yes normal visual inspection, Yes full ROM, Yes no lymphadenopathy, Yes no meningeal signs, Yes trachea midline, Yes supple, No anterior neck swelling and No tender Chest Chest palpation & inspection: normal inspection of the chest and normal palpation of entire chest wall Resp Effort & Inspection: normal respiratory effort and able to speak in complete sentences Auscultation: clear to auscultation bilaterally Cardio Jugular venous distension: no JVD Heart sounds: S1 normal heart sound present and S2 normal heart sound present GI Inspection: Yes normal to inspection and No abdominal wall ecchymosis Palpation (GI): Soft to palpation, not firm, nontender, no guarding and not rigid General: Yes no CVA tenderness Back/Spine/Pelvis Back: no CVA tenderness and No back tenderness Skin General skin exam: no rashes or lesions noted, elasticity normal and turgor normal Neuro General: oriented to person, oriented to place, oriented to time, patient oriented x3, gait normal, tone normal, moves all extremities, Normal light touch and pain sensation, no meningeal signs and no focal motor deficits Extrem General: Yes normal to inspection and Yes full ROM Psych Appearance: grossly normal, poorly kempt and not disheveled Medical Decision Making Medical Decision Making MDM Narrative: 53 yold male recent addmitted for upper GI bleed and epixstases presents to the ED for rhino-rocket removal as recommedned by HOspiatlists. patient states he was informed to removed Rhino-rocket in the ED on 05/14. Patient has FOllow up with ENT. Rhino-rocket deflated and removed. Patient informed to continue taking antibiotcs. patient to follow up with ENT. no nose bleed after rhin-rocket removed Differential Diagnosis Differential Diagnoses: The differential diagnosis associated with the presentation includes (rhino-rocket removal) External Record Review External record reviewed: Other (prior ED visit) Prescription Management I considered prescription management with: Antibiotic (continue taking his prescrbied amoxicillin) Discharge Plan Discharge Clinical Impression: Epistaxis Patient Disposition: Home, Self-Care Instructions: Nosebleed (ED) Additional Instructions: Your rhino rocket was removed today as recommended by hospitalist. Please follow-up with ENT this week. Continue taking prescribed antibiotics. Return to the ED immediately for any nose bleed, coughing up blood, weakness, dizziness, shortness of breath, rectal bleeding, bloody urine, or any other concerning symptoms. Prescriptions: No Action guaifenesin 100 mg/5 mL Liquid 200 mg PO Q4H PRN (Reason: Cough) famotidine [Pepcid AC] 10 mg Tablet 10 mg PO BID PRN (Reason: Nausea) tramadol 50 mg Tablet 50 mg PO Q8H PRN (Reason: Pain) acetaminophen 325 mg Tablet 650 mg PO Q6H PRN (Reason: Pain) ondansetron 4 mg Tablet,Disintegrating 4 mg PO Q6H PRN (Reason: Nausea) calcitriol 0.25 mcg Capsule 0.25 mcg PO DAILY atorvastatin 40 mg Tablet 40 mg PO BEDTIME ciclopirox 0.77 % Gel 1 appl TOPICAL BID Protocol: Apply to: Apply to: AFFECTED NAILS Probiotic 5 billion cell Capsule, Sprinkle 1 cap PO DAILY amoxicillin-pot clavulanate 875-125 mg Tablet 1 tab PO Q12H Qty: 4 0RF polyethylene glycol 3350 [Miralax] 17 gram/dose powder 17 g PO BID Qty: 850 0RF Metamucil 3.4 gram/5.4 gram powder 1 tbsp PO BID Qty: 660 0RF Rx Instructions: mix into at least 8 oz of water or juice before administering trazodone 50 mg tablet 25 mg PO BEDTIME levothyroxine 50 mcg capsule 50 mcg PO DAILY pantoprazole 40 mg tablet,delayed release (DR/EC) 40 mg PO DAILY amlodipine 10 mg tablet 10 mg PO DAILY Jardiance 10 mg tablet 10 mg PO DAILY sertraline 50 mg tablet 50 mg PO DAILY carvedilol 12.5 mg tablet 12.5 mg PO BID Rx Instructions: must administer with a meal/food Eliquis 5 mg tablet 5 mg PO BID linezolid 600 mg tablet 600 mg PO BID 42 Days Qty: 84 0RF Rx Instructions: ORDERED FOR 42 DAYS, END DATE OF 05/20/23 Referrals: Vernon Ohara [Physician] - (Resolved EPixstasis. Rhino-rocket removed) Discharge Date/Time: 05/14/23 15:03 Print Language: Burkinan
== END 2023-05-14 15:03 | disposition home or self-care (01) ==
PROVIDERS: Emergency Provider Student in an Organized Health Care Education/Training Program; PCP Family Medicine
DX: R04.0 Epistaxis (principal); Z87.891 Personal history of nicotine dependence; Z79.899 Other long term (current) drug therapy
CPT/HCPCS: 99281; 99282

== ENCOUNTER 2023-05-22 14:29 | Outpatient (REF) | payer BC, SELFPAY | END 2023-05-22 14:30 | disposition home or self-care (01) | LOC: HO.LAB 14:29 | PROVIDERS: PCP Family Medicine; Visit Provider Family Medicine | DX: Z13.89 Encounter for screening for other disorder (principal) | CPT/HCPCS: 86850; 86900; 86901 ==

== ENCOUNTER 2023-05-23 08:33 | Outpatient (REF) | payer BC, SELFPAY | END 2023-05-23 08:34 | disposition home or self-care (01) | LOC: HO.MDS 08:33 | PROVIDERS: PCP Family Medicine; Visit Provider Family Medicine | DX: D50.0 Iron deficiency anemia secondary to blood loss (chronic) (principal) | CPT/HCPCS: 36430; 86850; 86900; 86901; 86923; P9016 ==

== ENCOUNTER 2023-07-14 12:38 | Outpatient (REF) | payer BC, SELFPAY ==
--- NOTE | ~2023-07-14 | CT_ITS ---
CT SINUS WITHOUT CONTRAST HISTORY: Epistaxis, nasal lesion TECHNIQUE: CT images of the paranasal sinuses were acquired without contrast. This CT examination was performed using dose optimization techniques as appropriate, variously including the following: *Automated exposure control *Adjustment of mA and/or kV according to patient size (this includes techniques or standardized protocols for targeted exams where dose is matched to indication/reason for exam; i.e. extremities or head) *Use of iterative reconstruction technique DLP: 112 mgycm COMPARISON: None available FINDINGS: Rightward nasal septal deviation. Patchy secretions throughout the nasal cavity. Polypoid soft tissue within the posterosuperior right nasal cavity partially effacing the right olfactory recess may reflect a nasal polyp however can be correlated with direct inspection. Asymmetry of the olfactory fossa measuring 6 cm on the right and 5 mm on the left. Aplastic right frontal sinus. Hypoplastic left frontal sinus is well aerated with patent frontal sinus drainage outflow tract. Trace ethmoid air cell mucosal thickening. Mild bilateral maxillary sinus mucosal disease with patent ostiomeatal units. The sphenoid sinuses are well aerated with patent sphenoid sinus ostia and sphenoethmoidal recesses. Lamina papyracea: Intact. Anterior ethmoid canals do not traverse through the ethmoid air cells. The sphenoid septum does not insert onto the carotid canal. Sphenoethmoidal ([place]) cell: None. Normal appearance of the orbits. The carotid canals are covered by bone. The temporomandibular joints are normal. The mastoid air cells and middle ear cavities are well aerated. Impacted posterior left maxillary molar. Partially imaged moderate global cerebral volume loss. Chronic right striatocapsular infarct with associated ex vacuo dilatation of the body of the right lateral ventricle on a background of patchy partially imaged presumed chronic microangiopathic changes. Hypertrophic degenerative changes across the anterior atlantodental interval. CT/CT sinus wo IV con IMPRESSION: 1. Polypoid soft tissue within the posterosuperior right nasal cavity partially effacing the right olfactory recess may reflect a nasal polyp however can be correlated with direct inspection. Rightward nasal septal deviation and mild patchy secretions throughout the nasal cavity. No significant paranasal sinus disease. Patent major sinus drainage outflow tracts. 2. Chronic right striatocapsular infarct with associated ex vacuo dilatation of the body of the right lateral ventricle on a background of patchy partially imaged presumed chronic microangiopathic changes.
== END 2023-07-14 12:39 | disposition home or self-care (01) ==
LOC: HO.CT 12:38
PROVIDERS: PCP Family Medicine; Visit Provider Otolaryngology
DX: R04.0 Epistaxis (principal); D14.0 Benign neoplasm of middle ear, nasal cavity and accessory sinuses
CPT/HCPCS: 70486

== ENCOUNTER 2023-08-01 11:41 | Outpatient (AMB) | payer BC, SELFPAY ==
--- NOTE | 2023-08-01 11:42 | HO.NEPHOV_ITS ---
HPI HPI Comments History of Present Illness Details Jacob is a 51-year-old man with history of longstanding hypertension complicated by CVA. He has stage IIIB CKD. Patient creatinine is around 3.0 mg/dL. In April 2023 had an episode of nose bleed and was seen by ENT. A CT scan of the sinuses been done and he has a follow-up appointment with ENT surgeon. Hemoglobin dropped to 6.6 post epistaxis and he was transfused [address] scan of the abdomen showed a simple cyst on the right kidney and an indeterminate cyst measuring 3 cm in the right kidney. He has no hematuria. No line pain. Out of office blood pressure readings have been acceptable. PFS Medical History Renal failure PFO (patent foramen ovale) Hypertension DVT (deep venous thrombosis) Diabetes mellitus Left-sided cerebrovascular accident (CVA) Osteomyelitis Social History Housing: Correction Patient Tobacco Use Status: Former Tobacco user service: No Vital Signs 08/01/23 11:43 Height 6 ft 1 in Weight 224 lb 2 oz BMI 29.6 BP 130/84 Blood Pressure Location Rt brachial Position Sitting Pulse 65 Pulse Source Pulse Oximeter Pulse Oximetry (%) 98 Oxygen Delivery Method Room Air Physical Exam Vital Signs: Last Vital Signs Pulse 65 08/01/23 11:43 BP 130/84 08/01/23 11:43 Pulse Ox 98 08/01/23 11:43 Oxygen Delivery Method Room Air 08/01/23 11:43 BMI result Body Mass Index 29.6 Const General: comfortable; No acute distress Orientation/consciousness: patient oriented x3 Eyes General: appearance normal, both eyes and all related structures Visual Cruz: normal visual cruz by confrontation Neck Neck: Yes supple and Yes no JVD Resp Effort & Inspection: normal respiratory effort and respiratory effort not decr eased Auscultation: rhonchi Cardio Palpation: no palpable S3 and no palpable S4 Heart sounds: no rubs GI Inspection: Yes normal to inspection Palpation (GI): Soft to palpation Percussion: Yes normal to percussion Auscultation: normal bowel sounds General: Yes no CVA tenderness Back/Spine/Pelvis Back: no CVA tenderness Skin General skin exam: no petechiae and no purpura Neuro General: patient oriented x3 Motor exam (neuro): no asterixis and Other motor observations present (Left- sided weakness and walks with circumduction) Extrem General: No clubbing and No edema Assessment & Plan Assessment & Plan (1) CKD (chronic kidney disease) stage 3, GFR 30-59 ml/min: Code(s): N18.30 - Chronic kidney disease, stage 3 unspecified Plan: Renal functions close to baseline. Acute kidney injury has resolved. Goal so slow the portion disease. Maintain blood pressure less than 130/80 Continue overt nephrotoxic agents. Continue with SGLT 2 inhibitor (2) Renal mass: Code(s): N28.89 - Other specified disorders of kidney and ureter Plan: 1. The simple cyst on the right kidney does not require any follow-up. 2. He has an indeterminate cyst measuring 3 cm in the right kidney. We will obtain follow-up imaging in the next 6 months. (3) Diabetes mellitus: Code(s): E11.9 - Type 2 diabetes mellitus without complications Plan: Goal A1c less than 7% (4) Hypertension: Code(s): I10 - Essential (primary) hypertension Plan: Blood pressure control No change in medication Stand low-sodium diet (5) Anemia: Code(s): D64.9 - Anemia, unspecified Plan: Multifactorial. 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 However the acute blood loss due to epistaxis could have worsened the anemia. Follow hemoglobin Orders: Orders Electrolytes 1 Week N18.4 - Chronic kidney disease, stage 4 (severe) Creatinine 1 Week N18.4 - Chronic kidney disease, stage 4 (severe) Calcium 1 Week N18.4 - Chronic kidney disease, stage 4 (severe) Complete Blood Count no Diff 1 Week N18.4 - Chronic kidney disease, stage 4 (severe) Blood Urea Nitrogen 1 Week N18.4 - Chronic kidney disease, stage 4 (severe) Parathyroid Hormone Intact 1 Week N18.4 - Chronic kidney disease, stage 4 (severe) Hemoglobin A1c 1 Week E11.9 - Type 2 diabetes mellitus without complications Coding Level of Care Code Est Pt Level 4 (19541) Diagnoses CKD (chronic kidney disease) stage 3, GFR 30-59 ml/min N18.30 Renal mass N28.89 Diabetes mellitus E11.9 Hypertension I10 Anemia D64.9 Results Reviewed Nephrology Results: Hgb 8.2 g/dl (14.0-18.0) L 05/13/23 WBC 8.9 X10*3/uL (4.8-10.8) 05/13/23 Plt Count 171 X10*3/uL (160-400) 05/13/23 Sodium 142 mmol/L (135-145) 05/13/23 Potassium 3.5 mmol/L (3.3-5.1) 05/13/23 Chloride 109 mmol/L (96-108) H 05/13/23 Carbon Dioxide 22 mmol/L (22-29) 05/13/23 BUN 27 mg/dL (9-16) H 05/13/23 Creatinine 2.99 mg/dL (0.5-1.4) H 05/13/23 Calcium 8.4 mg/dL (8.4-10.2) 05/13/23
[2023-08-01 11:43] VITALS: BP 130/84; PULSE 65; O2SAT 98; BMI 29.6
== END 2023-08-01 12:09 | disposition home or self-care (01) ==
PROVIDERS: PCP Family Medicine; Visit Provider Internal Medicine Hypertension Specialist
DX: N18.30 Chronic kidney disease, stage 3 unspecified (principal); N28.89 Other specified disorders of kidney and ureter; E11.9 Type 2 diabetes mellitus without complications; I10 Essential (primary) hypertension; D64.9 Anemia, unspecified
CPT/HCPCS: 99214

== ENCOUNTER → 2023-08-01 11:41 | Outpatient (BNVA) | payer BC, SELFPAY | PROVIDERS: PCP Family Medicine; Visit Provider Internal Medicine Hypertension Specialist ==

== ENCOUNTER 2023-10-31 10:47 | Outpatient (AMB) | payer BC, SELFPAY ==
[2023-10-31 10:48] VITALS: BP 140/84; PULSE 70; O2SAT 97; BMI 31.0
--- NOTE | 2023-10-31 10:48 | HO.NEPHOV_ITS ---
HPI HPI Comments History of Present Illness Details Jacob is a 51-year-old man with history of longstanding hypertension complicated by CVA. He has stage IIIB CKD. Patient creatinine is around 3.0 mg/dL. In April 2023 had an episode of nose bleed and was seen by ENT. A CT scan of the sinuses been done and he has a follow-up appointment with ENT surgeon. Hemoglobin dropped to 6.6 post epistaxis and he was transfused [address] scan of the abdomen showed a simple cyst on the right kidney and an indeterminate cyst measuring 3 cm in the right kidney. He has no hematuria. No line pain. Out of office blood pressure readings have been acceptable. 10/31/23 Overall doing well. Home BP noted PFSH Medical History Renal failure PFO (patent foramen ovale) Hypertension DVT (deep venous thrombosis) Diabetes mellitus Left-sided cerebrovascular accident (CVA) Osteomyelitis Social History Housing: Intermediate Patient Tobacco Use Status: Former Tobacco user service: No Vital Signs 10/31/23 10:48 Height 6 ft 1 in Weight 235 lb BMI 31.0 BP 140/84 H Blood Pressure Location Rt brachial Position Sitting Pulse 70 Pulse Source Pulse Oximeter Pulse Oximetry (%) 97 Oxygen Delivery Method Room Air Physical Exam Vital Signs: Last Vital Signs Pulse 70 10/31/23 10:48 BP 140/84 H 10/31/23 10:48 Pulse Ox 97 10/31/23 10:48 Oxygen Delivery Method Room Air 10/31/23 10:48 BMI result Body Mass Index 31.0 Const General: comfortable; No acute distress Orientation/consciousness: patient oriented x3 Eyes General: appearance normal, both eyes and all related structures Visual Cruz: normal visual cruz by confrontation Neck Neck: Yes supple and Yes no JVD Resp Effort & Inspection: normal respiratory effort and respiratory effort not decreased Auscultation: rhonchi Cardio Palpation: no palpable S3 and no palpable S4 Heart sounds: no rubs GI Inspection: Yes normal to inspection Palpation (GI): Soft to palpation Percussion: Yes normal to percussion Auscultation: normal bowel sounds General: Yes no CVA tenderness Back/Spine/Pelvis Back: no CVA tenderness Skin General skin exam: no petechiae and no purpura Neuro General: patient oriented x3 Motor exam (neuro): no asterixis and Other motor observations present (Left- sided weakness and walks with circumduction) Extrem General: No clubbing and No edema Assessment & Plan Assessment & Plan (1) CKD (chronic kidney disease) stage 3, GFR 30-59 ml/min: Code(s): N18.30 - Chronic kidney disease, stage 3 unspecified Plan: Gradual decline in renal function. PRobably from naturla progression Goal is to slow the portion disease. Maintain blood pressure less than 130/80 Continue overt nephrotoxic agents. Continue with SGLT 2 inhibitor . (2) Renal mass: Code(s): N28.89 - Other specified disorders of kidney and ureter Plan: 1. The simple cyst on the right kidney does not require any follow-up. 2. He has an indeterminate cyst measuring 3 cm in the right kidney. We will obtain follow-up imaging . (3) Diabetes mellitus: Code(s): E11.9 - Type 2 diabetes mellitus without complications Plan: Goal A1c less than 7% (4) Hypertension: Code(s): I10 - Essential (primary) hypertension Plan: Blood pressure control No change in medication Stand low-sodium diet (5) Anemia: Code(s): D64.9 - Anemia, unspecified Plan: Multifactorial. 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 Follow hemoglobin Orders: Orders Phosphorus 3 Months N18.30 - Chronic kidney disease, stage 3 unspecified Basic Metabolic Panel 3 Months N18.30 - Chronic kidney disease, stage 3 unspecified Complete Blood Count no Diff 3 Months N18.30 - Chronic kidney disease, stage 3 unspecified Parathyroid Hormone Intact 3 Months N18.30 - Chronic kidney disease, stage [address] abdomen wo IV con Today N28.89 - Other specified disorders of kidney and u reter Coding Level of Care Code Est Pt Level 4 (69449) Diagnoses CKD (chronic kidney disease) stage 3, GFR 30-59 ml/min N18.30 Renal mass N28.89 Diabetes mellitus E11.9 Hypertension I10 Anemia D64.9 Results Reviewed Nephrology Results: Hgb 8.2 g/dl (14.0-18.0) L 05/13/23 WBC 8.9 X10*3/uL (4.8-10.8) 05/13/23 Plt Count 171 X10*3/uL (160-400) 05/13/23 Sodium 142 mmol/L (135-145) 05/13/23 Potassium 3.5 mmol/L (3.3-5.1) 05/13/23 Chloride 109 mmol/L (96-108) H 05/13/23 Carbon Dioxide 22 mmol/L (22-29) 05/13/23 BUN 27 mg/dL (9-16) H 05/13/23 Creatinine 2.99 mg/dL (0.5-1.4) H 05/13/23 Calcium 8.4 mg/dL (8.4-10.2) 05/13/23
== END 2023-10-31 11:12 | disposition home or self-care (01) ==
PROVIDERS: PCP Family Medicine; Visit Provider Internal Medicine Hypertension Specialist
DX: N18.30 Chronic kidney disease, stage 3 unspecified (principal); N28.89 Other specified disorders of kidney and ureter; E11.9 Type 2 diabetes mellitus without complications; I10 Essential (primary) hypertension; D64.9 Anemia, unspecified
CPT/HCPCS: 99214

== ENCOUNTER → 2023-10-31 10:47 | Outpatient (BNVA) | payer BC, SELFPAY | PROVIDERS: PCP Family Medicine; Visit Provider Internal Medicine Hypertension Specialist | DX: N18.4 Chronic kidney disease, stage 4 (severe) (principal); E11.9 Type 2 diabetes mellitus without complications ==

== ENCOUNTER 2023-12-28 08:38 | Outpatient (REF) | payer BC, SELFPAY ==
--- NOTE | ~2023-12-28 | CT_ITS ---
EXAMINATION: CT ABDOMEN WITHOUT CONTRAST CLINICAL INFORMATION: Disorders of kidney and ureter COMPARISON: CT abdomen pelvis 05/11/2023 TECHNIQUE: Contiguous axial thin section helical images of the abdomen were performed without contrast. The data set was reformatted in the coronal and sagittal planes and reviewed on an independent workstation. This CT examination was performed using dose optimization techniques as appropriate, variously including the following: *Automated exposure control *Adjustment of mA and/or kV according to patient size (this includes techniques or standardized protocols for targeted exams where dose is matched to indication/reason for exam; i.e. extremities or head) *Use of iterative reconstruction technique DLP: 586 mGy-cm FINDINGS: Visualized lung bases are well aerated. The liver demonstrates normal size, contour and attenuation. The gallbladder surgically absent. The pancreas, spleen and adrenal glands are unremarkable. The kidneys are symmetric in size. No renal calculi or hydronephrosis of either kidney. Stable 2.5 cm cyst within the posterior upper pole of the right kidney. Previously identified approximately 2.6 cm heterogeneous masslike density within the lateral midpole the right kidney is stable in size but suboptimally evaluated given lack of IV contrast. Visualized loops of small and large bowel are normal in caliber. Visualized portions of the appendix are unremarkable. Normal caliber abdominal aorta demonstrating mild atherosclerotic disease. No retroperitoneal lymphadenopathy. Mild to moderate diffuse degenerative changes of the spine. CT/CT abdomen wo IV con IMPRESSION: 1. No renal calculi or hydronephrosis of either kidney. 2. Previously identified approximately 2.6 cm heterogeneous masslike density within the lateral midpole of the right kidney is stable in size but suboptimally evaluated given lack of IV contrast. Further evaluation can be obtained with dedicated renal ultrasound or renal protocol CT imaging without and with IV contrast. Fleischner guidelines were followed.
[2023-12-28] MEDS: Barium Sulfate Oral (Vanilla) 450 ML ORAL.SUSP PO (10:14)
== END 2023-12-28 08:39 | disposition home or self-care (01) ==
LOC: HO.CT 08:38
PROVIDERS: PCP Family Medicine; Visit Provider Internal Medicine Hypertension Specialist
DX: N28.89 Other specified disorders of kidney and ureter (principal)
CPT/HCPCS: 74150

== ENCOUNTER 2024-07-17 08:59 | Outpatient (AMB) | payer BC, SELFPAY ==
--- NOTE | 2024-07-15 10:47 | HO.NEPHOV_ITS ---
Intake Visit Reasons: CKD/ LVM Allergies gabapentin Allergy (Verified 10/31/23 10:52) Unknown [facility] Medical History Renal failure PFO (patent foramen ovale) Hypertension DVT (deep venous thrombosis) Diabetes mellitus Left-sided cerebrovascular accident (CVA) Osteomyelitis Social History Housing: Group Home Patient Tobacco Use Status: Former Tobacco user service: No Results Reviewed Nephrology Results: Hgb 8.2 g/dl (14.0-18.0) L 05/13/23 WBC 8.9 X10*3/uL (4.8-10.8) 05/13/23 Plt Count 171 X10*3/uL (160-400) 05/13/23 Sodium 142 mmol/L (135-145) 05/13/23 Potassium 3.5 mmol/L (3.3-5.1) 05/13/23 Chloride 109 mmol/L (96-108) H 05/13/23 Carbon Dioxide 22 mmol/L (22-29) 05/13/23 BUN 27 mg/dL (9-16) H 05/13/23 Creatinine 2.99 mg/dL (0.5-1.4) H 05/13/23 Calcium 8.4 mg/dL (8.4-10.2) 05/13/23 Coding
[2024-07-17 09:07] VITALS: BP 152/84; PULSE 69; O2SAT 97; BMI 32.2
--- NOTE | 2024-07-17 09:07 | HO.NEPHOV ---
Vital Signs 07/17/24 09:07 07/17/24 09:26 Height 6 ft 1 in Weight 244 lb BMI 32.2 BP 152/84 H 140/80 H Blood Pressure Location Rt brachial Rt brachial Position Sitting Sitting Pulse 69 Pulse Source Pulse Oximeter Pulse Oximetry (%) 97 Oxygen Delivery Method Room Air Intake Visit Reasons: CKD/ LVM Medical Research Assistant Required: No Accompanied by: Wellness Nurse Allergies gabapentin Allergy (Verified 07/17/24 09:11) Unknown Medication List - Last Reconciled 07/17/24 by Aditya Nava MD acetaminophen 650 mg PO Q6H PRN amlodipine 10 mg PO DAILY apixaban (Eliquis) 5 mg PO BID atorvastatin 40 mg PO BEDTIME calcitriol 0.25 mcg PO DAILY carvedilol 12.5 mg PO BID ciclopirox 0.77% 1 appl See Protocol topical BID empagliflozin (Jardiance) 25 mg PO DAILY famotidine (Pepcid AC) 10 mg PO BID PRN guaifenesin 200 mg PO Q4H PRN levothyroxine 50 mcg PO DAILY ondansetron 4 mg PO Q6H PRN pantoprazole 40 mg PO DAILY polyethylene glycol 3350 (Miralax) 17 grams PO BID psyllium husk (Metamucil) 1 tbsp PO BID sertraline 50 mg PO DAILY tramadol 50 mg PO Q8H PRN trazodone 25 mg PO BEDTIME HPI Comments Details: Jacob is a 51-year-old man with history of longstanding hypertension complicated by CVA. He has stage IIIB CKD. Patient creatinine is around 3.0 mg/dL. In April 2023 had an episode of nose bleed and was seen by ENT. A CT scan of the sinuses been done and he has a follow-up appointment with ENT surgeon. Hemoglobin dropped to 6.6 post epistaxis and he was transfused [address] scan of the abdomen showed a simple cyst on the right kidney and an indeterminate cyst measuring 3 cm in the right kidney. He has no hematuria. No line pain. Out of office blood pressure readings have been acceptable. 10/31/23 Overall doing well. Home BP noted 07/17/2024. Jacob is here for follow-up. All medications were reviewed. Jardiance has been increased PFSH Medical History Renal failure PFO (patent foramen ovale) Hypertension DVT (deep venous thrombosis) Diabetes mellitus Left-sided cerebrovascular accident (CVA) Osteomyelitis Social History Housing: Prison Patient Tobacco Use Status: Former Tobacco user service: No Physical Exam Vital Signs: Last Vital Signs Pulse 69 07/17/24 09:07 BP 140/80 H 07/17/24 09:26 Pulse Ox 97 07/17/24 09:07 Oxygen Delivery Method Room Air 07/17/24 09:07 BMI result Body Mass Index 32.2 Const General: comfortable; No acute distress Orientation/consciousness: patient oriented x3 Eyes General: appearance normal, both eyes and all related structures Visual Chang: normal visual chang by confrontation Neck Neck: Yes supple and Yes no JVD Resp Effort & Inspection: normal respiratory effort and respiratory effort not decreased Auscultation: rhonchi Cardio Palpation: no palpable S3 and no palpable S4 Heart sounds: no rubs GI Inspection: Yes normal to inspection Palpation (GI): Soft to palpation Percussion: Yes normal to percussion Auscultation: normal bowel sounds General: Yes no CVA tenderness Back/Spine/Pelvis Back: no CVA tenderness Skin General skin exam: no petechiae and no purpura Neuro General: patient oriented x3 Motor exam (neuro): no asterixis and Other motor observations present (Left-sided weakness and walks with circumduction) Extrem General: No clubbing and Yes edema Results Reviewed Nephrology Results: Hgb 8.2 g/dl (14.0-18.0) L 05/13/23 WBC 8.9 X10*3/uL (4.8-10.8) 05/13/23 Plt Count 171 X10*3/uL (160-400) 05/13/23 Sodium 142 mmol/L (135-145) 05/13/23 Potassium 3.5 mmol/L (3.3-5.1) 05/13/23 Chloride 109 mmol/L (96-108) H 05/13/23 Carbon Dioxide 22 mmol/L (22-29) 05/13/23 BUN 27 mg/dL (9-16) H 05/13/23 Creatinine 2.99 mg/dL (0.5-1.4) H 05/13/23 Calcium 8.4 mg/dL (8.4-10.2) 05/13/23 Assessment & Plan Assessment & Plan (1) CKD (chronic kidney disease) stage 3, GFR 30-59 ml/min: Code(s): N18.30 - Chronic kidney disease, stage 3 unspecified Category: Medical Plan: Serum creatinine stable around 2.87 mg/dL. This is probably his baseline. Goal is to slow the progression of renal disease Maintain blood pressure less than 130/80 Continue overt nephrotoxic agents. Continue with SGLT 2 inhibitor . (2) Renal mass: Code(s): N28.89 - Other specified disorders of kidney and ureter Category: Medical Plan: 1. The simple cyst on the right kidney does not require any follow-up. 2. He has an indeterminate cyst measuring 3 cm in the right kidney. Noted in 05/17/2023. Follow-up CT scan in 01/15/2024 revealed stable cyst. I will reimage the cyst in the next 6 months and if there is any change we will refer to Urology. . (3) Diabetes mellitus: Code(s): E11.9 - Type 2 diabetes mellitus without complications Category: Medical Plan: Goal A1c less than 7% (4) Hypertension: Code(s): I10 - Essential (primary) hypertension Category: Medical Plan: Blood pressure is better controlled No change in medication Stay on low-sodium diet (5) Anemia: Code(s): D64.9 - Anemia, unspecified Category: Medical Plan: Multifactorial. 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 Follow hemoglobin (6) Secondary hyperparathyroidism: Code(s): N25.81 - Secondary hyperparathyroidism of renal origin Category: Medical Plan: On calcitriol. Ordered intact PTH and calcium prior to next visit Orders: Orders Basic Metabolic Panel 3 Months N18.30 - Chronic kidney disease, stage 3 unspecified Parathyroid Hormone Intact 3 Months N18.30 - Chronic kidney disease, stage 3 unspecified Complete Blood Count no Diff 3 Months N18.30 - Chronic kidney disease, stage 3 unspecified Phosphorus 3 Months N18.30 - Chronic kidney disease, stage 3 unspecified Coding Level of Care Code Est Pt Level 5 (08311) Diagnoses CKD (chronic kidney disease) stage 3, GFR 30-59 ml/min N18.30 Renal mass N28.89 Diabetes mellitus E11.9 Hypertension I10 Anemia D64.9 Secondary hyperparathyroidism N25.81
[2024-07-17 09:26] VITALS: BP 140/80
== END 2024-07-17 09:33 | disposition home or self-care (01) ==
PROVIDERS: PCP Internal Medicine; Visit Provider Internal Medicine Hypertension Specialist
DX: I12.9 Hypertensive chronic kidney disease with stage 1 through stage 4 chronic kidney disease, or unspecified chronic kidney disease (principal); E11.22 Type 2 diabetes mellitus with diabetic chronic kidney disease; N18.32 Chronic kidney disease, stage 3b; D63.1 Anemia in chronic kidney disease; N28.89 Other specified disorders of kidney and ureter; N25.81 Secondary hyperparathyroidism of renal origin
CPT/HCPCS: 99214

== ENCOUNTER 2024-10-16 09:37 | Outpatient (AMB) | payer BC, SELFPAY ==
--- NOTE | 2024-10-16 09:40 | HO.NEPHOV_ITS ---
Vital Signs 10/16/24 09:41 10/16/24 10:05 Height 6 ft 1 in Weight 235 lb BMI 31.0 BP 160/92 H 140/80 H Blood Pressure Location Lt brachial Lt brachial Position Sitting Sitting Pulse 64 Pulse Source Pulse Oximeter Pulse Oximetry (%) 97 Oxygen Delivery Method Room Air Intake Visit Reasons: CKD/LVM Commercial Subcontractor Required: No Accompanied by: Nurse Allergies gabapentin Allergy (Verified 10/16/24 09:46) Unknown Medication List - Last Reconciled 10/16/24 by Aditya Nava MD acetaminophen 650 mg PO Q6H PRN amlodipine 10 mg PO DAILY apixaban (Eliquis) 5 mg PO BID atorvastatin 40 mg PO BEDTIME calcitriol 0.25 mcg PO DAILY carvedilol 12.5 mg PO BID ciclopirox 0.77% 1 appl See Protocol topical BID empagliflozin (Jardiance) 25 mg PO DAILY famotidine (Pepcid AC) 10 mg PO BID PRN guaifenesin 200 mg PO Q4H PRN levothyroxine 50 mcg PO DAILY ondansetron 4 mg PO Q6H PRN pantoprazole 40 mg PO DAILY polyethylene glycol 3350 (Miralax) 17 grams PO BID psyllium husk (Metamucil) 1 tbsp PO BID sertraline 50 mg PO DAILY tramadol 50 mg PO Q8H PRN trazodone 25 mg PO BEDTIME HPI Comments Details: Jacob is a 51-year-old man with history of longstanding hypertension complicated by CVA. He has stage IIIB CKD. Patient creatinine is around 3.0 mg/dL. In April 2023 had an episode of nose bleed and was seen by ENT. A CT scan of the sinuses been done and he has a follow-up appointment with ENT surgeon. Hemoglobin dropped to 6.6 post epistaxis and he was transfused [address] scan of the abdomen showed a simple cyst on the right kidney and an indeterminate cyst measuring 3 cm in the right kidney. He has no hematuria. No line pain. Out of office blood pressure readings have been acceptable. 10/31/23 ;Overall doing well. Home BP noted 07/17/2024. Jacob is here for follow-up. All medications were reviewed. Jardiance has been increased PFSH Medical History Renal failure PFO (patent foramen ovale) Hypertension DVT (deep venous thrombosis) Diabetes mellitus Left-sided cerebrovascular accident (CVA) Osteomyelitis Social History Housing: Retirement Patient Tobacco Use Status: Former Tobacco user service: No Physical Exam Vital Signs: Last Vital Signs Pulse 64 10/16/24 09:41 BP 160/92 H 10/16/24 09:41 Pulse Ox 97 10/16/24 09:41 Oxygen Delivery Method Room Air 10/16/24 09:41 BMI result Body Mass Index 31.0 Const General: comfortable; No acute distress Orientation/consciousness: patient oriented x3 Eyes General: appearance normal, both eyes and all related structures Visual Chang: normal visual chang by confrontation Neck Neck: Yes supple and Yes no JVD Resp Effort & Inspection: normal respiratory effort and respiratory effort not decreased Auscultation: rhonchi Cardio Palpation: no palpable S3 and no palpable S4 Heart sounds: no rubs GI Inspection: Yes normal to inspection Palpation (GI): Soft to palpation Percussion: Yes normal to percussion Auscultation: normal bowel sounds General: Yes no CVA tenderness Back/Spine/Pelvis Back: no CVA tenderness Skin General skin exam: no petechiae and no purpura Neuro General: patient oriented x3 Motor exam (neuro): no asterixis and Other motor observations present (Left- sided weakness and walks with circumduction) Extrem General: No clubbing and Yes edema Results Reviewed Nephrology Results: No Data to Display Assessment & Plan Assessment & Plan (1) CKD (chronic kidney disease) stage 4, GFR 15-29 ml/min: Code(s): N18.4 - Chronic kidney disease, stage 4 (severe) Category: Medical Plan: Serum creatinine was stable around 2.87 mg/dL. and now up to 3.8 Will recheck today Goal is to slow the progression of renal disease Maintain blood pressure less than 130/80 Continue overt nephrotoxic agents. Continue with SGLT 2 inhibitor (2) Renal mass: Code(s): N28.89 - Other specified disorders of kidney and ureter Category: Medical Plan: 1. The simple cyst on the right kidney does not require any follow-up. 2. He has an indeterminate cyst measuring 3 cm in the right kidney. Noted in 05/17/2023. Follow-up CT scan in 01/15/2024 revealed stable cyst. I will reimage the cyst NOW and if there is any change we will refer to Urology. . (3) Diabetes mellitus: Code(s): E11.9 - Type 2 diabetes mellitus without complications Category: Medical Plan: Goal A1c less than 7% (4) Hypertension: Code(s): I10 - Essential (primary) hypertension Category: Medical Plan: Blood pressure is better controlled No change in medication Stay on low-sodium diet (5) Anemia: Code(s): D64.9 - Anemia, unspecified Category: Medical Plan: Multifactorial. 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 Follow hemoglobin (6) Secondary hyperparathyroidism: Code(s): N25.81 - Secondary hyperparathyroidism of renal origin Category: Medical Plan: On calcitriol. Ordered intact PTH and calcium prior to next visit Orders: Orders Basic Metabolic Panel Today N18.4 - Chronic kidney disease, stage 4 (severe) CT abdomen wo IV con Today N18.4 - Chronic kidney disease, stage 4 (severe), N28.89 - Other specified disorders of kidney and ureter Coding Level of Care Code Est Pt Level 4 (74483) Diagnoses CKD (chronic kidney disease) stage 4, GFR 15-29 ml/min N18.4 Renal mass N28.89 Diabetes mellitus E11.9 Hypertension I10 Anemia D64.9 Secondary hyperparathyroidism N25.81
[2024-10-16 09:41] VITALS: BP 160/92; PULSE 64; O2SAT 97; BMI 31.0
--- OUTSIDE RECORDS SUMMARY | 2024-10-16 09:54 | XMS_ITS | Encounter Summary ---
Author Organization [facility] [place] [address] Care Team Providers Care Booster Plant Operator Name Role Phone Kyle Bean MD Primary Care Provider [phone]- [phone] Encounter Details Date Type Department Care Team ([facility] Contact Info) Description 09/24/2024 Telephone Adult Medicine [address] [phone] Kyle Bean MD [address] [place] [address] [phone] Social History Tobacco Use Types Packs/Day Years Used Date Smoking Tobacco: Former Cigarettes 1 41.4 1 981 - 01/26/2022 Smokeless Tobacco: Never Alcohol Use Standard Drinks/Week Comments Never 0 (1 standard drink = 0.6 oz pur e alcohol) Sex and Gender Information Value Date Recorded Sex Assigned at Male 07/02/2024 10:48 AM EST Legal Sex Male 11:14 AM EST Gender Identity Male 07/02/2024 10:48 AM EST Sexual Orientation Not on file documented as of this encounter Plan of Treatment Upcoming Encounters Date Type Department Care Team (Late Contact Info) Description 11/11/2024 11:00 AM EDT Office Visit Adult Medicine [address] [phone] Kyle Bean MD [address] [place] [address] [phone] documented as of this encounter Visit Diagnoses Not on filedocumented in this encounter Care Teams Booster Plant Operator Relationship Specialty Start Date End Date Kyle Bean MD [address] [place] [phone] PCP - General 04/23/24 documented as of this encounter
--- OUTSIDE RECORDS SUMMARY | 2024-10-16 09:54 | XMS_ITS ---
Author Organization [facility] Address [address] [place] [address] Care Team Providers Care Client Professional Name Role Phone Stanislav LEDESMA, Hakeem Primary Care Provider Unavailab Jarred Daniels Unavailable [phone] REASON FOR VISIT No Show Encounters Encounter Location Date Provider Diagnosis [facility] [address] [place] [address] 02/28/2024 Jarred Oleary Plan Of Treatment No Information Progress Notes * Jacob LOCODOB:[birth year] (53 yo M)Acc No.[id number]:02/28/2024 Patient:?Beronica Jacob :1970???Age:53 Y???Sex:Male Address:[address] [place] [address], [address] * true * Date:? Generated for Printi alex/Anand/eTransmitting on:?10/16/2024 09:54 AM EST
--- OUTSIDE RECORDS SUMMARY | 2024-10-16 09:54 | XMS_ITS | Patient Health Record ---
Author Organization [facility] Address [address] [place] [address] Care Team Providers Care System Designer Name Role Phone KEISHA WILKERSON Unavailable [phone] ALLERGIES No Known Allergies REASON FOR REFERRAL No Information MEDICATIONS Medication [...] (primary) hypertension (I10) Active confirmed Essential hypertension (20788795) Problem Cerebral infarction due to unspecified occlusion or stenosis of unspecified cerebral artery (I63.50) Active confirmed Cerebral infarction due to carotid artery occlusion (522422687585974) Problem Hemiplegia and hemip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 (I69.354) Active confirmed 972414922 Problem Chronic kidney disease, unspecified (N18.9) Active confirmed 459546520 Problem Atrial septal defect (Q21.1) Active confirmed Atrial septal defect (26991458) Problem Encounter for fitting and adjustment of other specified devices (Z46.89) Active confirmed 020923690 Problem Hyperlipidemia, unspecified (E78.5) Active confirmed Hyperlipidemia (73016394) Problem Depression, unspecified depression type (F32.9) Active confirmed Depressive disorder (disorder) (29169797) Problem Vitamin D deficiency (E55.9) Active confirmed 61318314 Problem Chronic anticoagulation (Z79.01) Active confirmed 547186021 Problem Type 2 diabetes mellitus without complication, without long-term current use of insulin (E11.9) Active confirmed 291075134 Problem Stage 4 chronic kidney disease (N18.4) Active confirmed 112956110 Problem Major depress dis, severe (F32.2) Active confirmed Severe major depression, single episode, without psychotic features (09994218) Problem Hemiparesis affecting left side as late effect of cerebrovascular accident (I69.354) Active confirmed Hemiplegi a of nondominant side as late effect of cerebrovascular disease (857092148) Problem Stage 3b chronic kidney disease (N18.32) Active confirmed 353782685 PLAN OF TREATMENT Pending Test Test Name Order Date BASIC METABOLIC PANEL 09/09/2021 Future Test Test Name Order Date 25OH VITAMIN D 06/23/2021 COMPREHENSIVE METABOLIC PANEL 06/23/2021 HEMOGLOBIN A1C 06/23/2021 LIPID PANEL 06/23/2021 TSH 06/23/2021 BASIC METABOLIC PANEL 09/21/2021 HEMOGLOBIN A1C 09/21/2021 LIPID PANEL 09/21/2021 MICROALBUMIN, URINE 09/21/2021 Insurance Providers Payer Name Payer Address Payer Phone Subscriber Number Group Number Insured Name Patient Relationship to Insured Coverage Start Date Coverage End Date [facility] and [facility] [address] [place] [address] [id number] Fr Jacob Loco Self - patient is the insured MEDICAL (GENERAL) HISTORY Medical History History ICD Code hypertension hyperlipidemia stroke blood clots depression Surgical History Surgery Date(Month/Year) removal of tumor 1983 cholecystectomy 2002 Hospitalization History Reason Date(Month/Year) [facility] vommiting/ dehydration causing SUZY also covid 19 positive 09/04/2021
--- OUTSIDE RECORDS SUMMARY | 2024-10-16 09:54 | XMS_ITS ---
Author [facility] Address [address] [place] [address] Care Team Providers Care Certified Breastfeeding Educator Name Role Phone Stanislav LEDESMA, Hakeem Primary Care Provider UnavailJarred Tejada Unavailable [phone] REASON FOR VISIT Painful nail(s) aggrevated by shoes and causing difficulty standing/walking., Ingrown nail(s), PCP - 02/2023 Medications Medication SIG (Take, Route, Frequency, Duration) Notes Start Date End Date Status Ondansetron 4 MG Oral for 5 No t-Taking Sertraline HCl 100 MG Oral for 90 Not-Taking Cipro 500 MG 1 tablet Orally ever y 12 hrs for 10 days 01/02/2023 Not-Taking Symbicort 160-4.5 MCG/ACT Inhalation for 30 Not-Taking metFORMIN HCl 500 MG Oral for 90 Not-Taking Extra Depth Diabetic Shoes with 3 Pair Custom heat-molded multi-density innersoles for 1 year Dx: Active Ciclopirox 0.77 % 1 application to affected area Externally Twice a day to effected nails for 30 days 03/23/2023 Not-Taking Pantoprazole Sodium 40 MG Oral for 90 Active Amoxicillin-Pot Clavulanate 875 875-125 MG one tab Orally every 12 hrs for 10 day(s) Active Levothyroxine Sodium 50 MCG Oral for 90 Active Eliquis 5 MG Oral for 30 Activ e Atorvastatin Calcium 40 MG TAKE 1 TABLET BY MOUTH EVERY DAY Oral for 90 Active Carvedilol 12.5 MG TAKE 1 TABLET BY TWICE A DAY WITH FOOD FOR 90 DAYS Oral for 90 Active ARIPiprazole 2 MG Oral for 30 Active Jardiance 10 MG TAKE 1 TABLET BY LILIBETH TH EVERY DAY FOR 30 DAYS Oral for 30 Active amLODIPine Besylate 10 MG Oral for 90 Active Keflex Active NIFEdipine ER Osmotic Release 30 MG Oral for 30 Not-Taking hydrALAZINE HCl 25 MG Oral for 30 Not-Taking Encounters Encounter Location Date Provider Diagnosis [facility] [place] [address] [place] [address] 02/28/2024 Jarred Oleary Tinea unguium B35.1 ; Pain in right toe(s) M79.674 ; Pain in left toe(s) M79.675 ; Type 2 diabetes mellitus with diabetic polyneuropathy E11.42 ; Skin disease L98.9 ; Ingrowing nail L60.0 ; Xerosis cutis L85.3 ; Left foot drop M21.372 ; Other hammer toe(s) (acquired), right foot M20.41 and Tinea pedis B35.3 Assessments Encounter Date Diagnosis (ICD Code) Assessment Notes Treatment Notes Treatment Clinical Notes Section Notes 02/28/2024 Tinea unguium (ICD-10 - B35.1) 02/28/2024 Pain in right toe(s) (ICD-10 - M79.674) 02/28/2024 Pain in left toe(s) (ICD-10 - M79.675) 02/28/2024 Type 2 diabetes mellitus with diabetic polyneuropathy (ICD-10 - E11.42) 02/28/2024 Skin disease (ICD-10 - L98.9) 02/28/2024 Ingrowing nail (ICD-10 - L60.0) 02/28/2024 Xerosis cutis (ICD-10 - L85.3) 02/28/2024 Left foot drop (ICD-10 - M21.372) 02/28/2024 Other hammer toe(s) (acquired), right foot (ICD-10 - M20.41) 02/28/2024 Tinea pedis (ICD-10 - B35.3) Plan Of Treatment Next Appt Details Follow Up: 3 Months, Reason: Procedure Notes * Category Sub-Category Detail Notes Debride Nail 6-10 Nail debridement Nail debridem ent performed extensively to reduce/remove overall nail length and girth, subungual debris, and necrotic tissue, by manual and electrical means with use of a nail nipper and/or dremel, to more viable healthy nail plate or bed tissue 6-10. Silver nitrate used for any petechial bleeding as necessary. Patient chooses, no pharmaceutical tx (86910) Keratoma Treatment Parring or Cutting o f Benign Hyperkeratotic Lesion(s) 92238 (2-4 Lesions) - The Benign hyperkeratotic lesions, as described above were pared, and/or cut utilizing a sterile #15 blade, tissue nippers, and/or dremel Progress Notes * Jacob LOCODOB:[birth year] (54 yo M)Acc No.[id number]:02/28/2024 Progress Note Patient:?Jacob LOCO Provider:?Jarred Oleary DPM :1970???Age:53 Y???Sex:Male David e:02/28/2024 Address:[facility] [address], [place] [address] Pcp:Hakeem Colorado MD Subjective: * Chief Complaints: * ???1. Painful nail(s) aggrev ated by shoes and causing difficulty standing/walking.. 2. Ingrown nail(s). 3. PCP - 02/2023. * HPI: ???Painful Nails:?Pt States Last PCP Visit:?Date:?09/14/2023 * ROS:?General/Constitutional:?Nausea?denies.?Vomiting?denies.?Hunger Thirst?denies.?Loss appetite?denies.?Chills?denies.?Fatigue?denies.?Fever?denies.?Night Sweats?denies.?Unexplained weight loss?denies.?Unexplained weight gain?denies.?HEENTM:?Dentures?denies.?Dizziness?denies.?Glasses/contacts?admits.?Retinopathy?de nies.?Blurred/double vision?denies.?TMJ?denies.?Discharge/drainage?denies.?Implants?denies.?Sore throat?denies.?Dental implants?denies.?Hard of hearing ?denies.?Difficulty chewing/swallowing/speaking?denies.?Nose bleeds?denies.?Sore mouth?denies.?Respiratory:?On Oxygen?denies.?Pneumonia/pleurisy?denies.?Bronchitis?denies.?Emphysema?denies.?C oughing?denies.?Cough blood?denies.?Shortness of breath?denies.?Wheezing?denies.?Cardiovascular:?Pacemaker?denies.?MVP?denies.?WPW?denies.?CHF?denies.?Heart attack?denies.?Septal defect?denies.?Rapid beat?denies.?Chest pain ?denies.?Atrial Fib.?denies.?Murmur/Palpitations?denies.?Gastrointestinal:?Hemorrhoids?denies.?Stomach/Abdominal pain?denies.?Dark blood stool?denies.?Irritable bowel ?denies.?Constipation?denies.?Diarrhea?denies.?Hematology:?Swelling?denies.?Clots?Admits.?Varicose Veins?denies.?Bruising?denies.?Bleeding problem?denies.?Genitourinary:?Blood urine?denies.?Frequent/Painfu/urination/bladder control?denies.?Kidney stones?denies.?Infection (UTI)?denies.?Nephropathy?denies.?sex trans dis (STD)?denies.?Prostate?denies.?Musculoskeletal:?Hammertoes?denies.?Bunions?denies.?Back Pain?denies.?Muscle Cramps/ Resting?denies.?Muscle cramps / walking?denies.?Generalized aches and pains?denies.?Weakness?denies.?Integ.:?Agarwal?denies.?Scars?denies.?Corns/calluses?denies.?Ingrown nails?denies.?Painful nails?denies.?Open Sores?denies.?Rashes?denies.?Neurologic:?Difficulty sleeping?denies.?Brain disorder?denies.?Numbness?denies.?Balance trouble?denies.?Confusion?denies.?Fainting/blackouts?denies.?Tingling?denies.?Tr emors?denies.? * Medical History:? * Medications:?Taking Keflex , Taking amLODIPine Besylate 10 MG Tablet Oral , Taking ARIPiprazole 2 MG Tablet Oral , Taking Atorvastatin Calcium 40 MG Tablet TAKE 1 TABLET BY MOUTH EVERY DAY Oral , Taking Carvedilol 12.5 MG Tablet TAKE 1 TABLET BY MOUTH TWICE A DAY WITH FOOD FOR 90 DAYS Oral , Taking Eliquis 5 MG Tablet Oral , Taking Jardiance 10 MG Tablet TAKE 1 TABLET BY MOUTH EVERY DAY FOR 30 DAYS Oral , Taking Levothyroxine Sodium 50 MCG Tablet Oral , Taking Pantoprazole Sodium 40 MG Tablet Delayed Release Oral , Taking Amoxicillin-Pot Clavulanate 875 875-125 MG Tablet one tab Orally every 12 hrs , Taking Extra Depth Diabetic Shoes with 3 Pair Custom heat-molded multi-density innersoles for 1 year Dx: , Not-Taking/PRN Ciclopirox 0.77 % Gel 1 application to affected area Externally Twice a day to effected nails , Not-Taking/PRN Cipro 500 MG Tablet 1 tablet Orally every 12 hrs , Not-Taking/PRN Symbicort 160-4.5 MCG/ACT Aerosol Inhalation , Not-Taking/PRN Ondansetron 4 MG Tablet Disintegrating Oral , Not-Taking/PRN Sertraline HCl 100 MG Tablet Oral , Not-Taking/PRN metFORMIN HCl 500 MG Tablet Oral , Not-Taking/PRN NIFEdipine ER Osmotic Release 30 MG Tablet Extended Release 24 Hour Oral , Not-Taking/PRN hydrALAZINE HCl 25 MG Tablet Oral Objective: * Vitals:? * Examination: ???Nails: ?NAILS are:? Elongated, overgrown, dystrophic, lytic, greater than 3mm thick, discolored and friable with crumbly malodorous subungual debris, with pain on palpation, 1-5 B/L.?Neurological: ?SENSORY:? Neurological exam demonstrates, reduced vibration sensation, 5.07 monofilament test performed at plantar aspects of 5 varied sites per foot shows sensation, reduced , B/L, Neurological exam demonstrates hyperesthesia due to cva.?Vascular: ?DP PULSES (B):? /, B/L.?PT PULSES (B):? 08/31, B/L.?CAPILLARY FILL TIME:?3 secs. per digit. B/L.?TROPHIC CONDITION-TEXTURE/ELASTICITY/TURGOR/HAIR GROWTH (B):?normal, B/L.?TEMPERTURE GRADIENT (C):?normal, B/L.?PIGMENTATION:?normal, B/L.?EDEMA (C):? /, B/L, Feet, Ankle(s), Leg(s).?TELANGECTASIA:?absent, B/L.?Dermatologic: ?SKIN FINDINGS:? Skin exam reveals Keratotic lesion(s) located at, SUB MTH (s), 1, Right , SUB MTH (s), 2, 3, B/L.?General Examination: ?GENERAL APPEARANCE:?pleasant, alert, well nourished, well developed, well hydrated, with good attention to hygene/body habitus, and in no acute distress.?ORIENTED:?person,place, and time.?FOOT EXAM:?Orthopedic: ?FOOT MORPHOLOGY:? Dropfoot noted NWB and wb left--pt has afo brace.?DIGITAL DEFORMITIES:? Digital contracture, PIPJ, 2-5 B/L, incompl- reducable with WB, or to push-up test, no over, nor underlapping.?Ingrown Nail: ?INSPECTION:?Reveals nail incurvation, pain on palpation, groove hypertrophy, groove ischemia, Lateral nail border, T6.?Ophthalmology Referral: ?DIABETES EYE EXAM? Assessment: * Assessment: 1.?Tinea unguium - B35.1 (Pr imary)???2.?Pain in right toe(s) - M79.674???3.?Pain in left toe(s) - M79.675???4.?Type 2 diabetes mellitus with diabetic polyneuropathy - E11.42???5.?Skin disease - L98.9?? 6.?Ingrowing nail - L60.0???7.?Xerosis cutis - L85.3???8.?Left foot drop - M21.372???9.?Other hammer toe(s) (acquired), right foot - M20.41???10.?Tinea pedis - B35.3??? Plan: * Treatment: * Procedures:?Debride Nail 6-10:?Nail debridement?Nail debridement performed extensively to reduce/remove overall nail length and girth, subungual debris, and necrotic tissue, by manual and electrical means with use of a nail nipper and/or dremel, to more viable healthy nail plate or bed tissue 6-10. Silver nitrate used for any petechial bleeding as necessary. Patient chooses, no pharmaceutical tx (95710).?Keratoma Treatment:?Parring or Cutting of Benign Hyperkeratotic Lesion(s)?61663 (2-4 Lesions) - The Benign hyperkeratotic lesions, as described above were pared, and/or cut utilizing a sterile #15 blade, tissue nippers, and/or dremel.? * Procedure Codes:?09233 DEBRI DE NAIL, 6 OR MORE, Modifiers: XS , 36976 TRIM SKIN LESIONS, 2 TO 4, Modifiers: XS * Follow Up:?3 Months * Images: * The named appointment provid er may or may not be the originator of this progress note, and it is not deemed complete until electronically signed by the appointment provider. Sign off status: Pending * Provider:Paris Oleary DPM Date:? 024 Generated for Daniel johnson/Anand/Thony on:?10/16/2024 09:54 AM EST History and Physical Notes * HPI (History of Present Illness) Category Sub-Category Detail Notes Category Not es Painful Nails Pt States Last PCP Visit: Date:: 09/14/2023 Examination Category Sub-Category Detail Notes Category Not es Ingrown Nail INSPECTION: Reveals nail inc urvation, pain on palpation, groove hypertrophy, groove ischemia, Lateral nail border, T6 Neurological SENSORY: Neurological exa m demonstrates, reduced vibration sensation, 5.07 monofilament test performed at plantar aspects of 5 varied sites per foot shows sensation, reduced , B/L, Neurological exam demonstrates hyperesthesia due to cva Dermatologic SKIN FINDINGS: Skin exam reveal s Keratotic lesion(s) located at, SUB MTH (s), 1, Right , SUB MTH (s), 2, 3, B/L Orthopedic FOOT MORPHOLOGY: Dropfoot noted NWB and wb left--pt has afo brace DIGITAL DEFORMITIES: Digital contracture , PIPJ, 2-5 B/L, incompl-reducable with WB, or to push-up test, no over, nor underlapping General Examination GENERAL APPEARANCE: pleasant , alert, well nourished, well developed, well hydrated, with good attention to hygene/body habitus, and in no acute distress FOOT EXAM: Lower Extremity Neurological Exa m performed:: Yes Visual exam of foot performed:: Yes Date: 11/29/2023 Sensory testing performed:: sensations d iminished Pedal pulse taking performed:: 2+ ORIENTED: person,place, and ti ga Ophthalmology Referral DIABETES EYE EXAM Diabetic Retinopa thy Screening:: Yes Findings of Diabetic Eye Exam:: no retin opathy Vascular DP PULSES (B): 2/4, B/L PT PULSES (B): 1/4, B/L CAPILLARY FILL TIME: 3 secs. per digit. B/L TEMPERTURE GRADIENT (C): normal, B/L TROPHIC CONDITION-TEXTURE/EL ASTICITY/TURGOR/HAIR GROWTH (B): normal, B/L EDEMA (C): 1/4, B/L, Feet, Ankl e(s), Leg(s) TELANGECTASIA: absent, B/L PIGMENTATION: normal, B/L Nails NAILS are: Elongated, overg rown, dystrophic, lytic, greater than 3mm thick, discolored and friable with crumbly malodorous subungual debris, with pain on palpation, 1-5 B/L
--- OUTSIDE RECORDS SUMMARY | 2024-10-16 09:54 | XMS_ITS | Encounter Summary ---
Author Organization [facility] [place] [address] Care Team Providers Care Director Strategic Planning Name Role Phone Kyle Bean MD Primary Care Provider [phone]- [phone] Reason for Visit * Reason Onset Date Comments Prior Authorization 10/03/2024 Sallie Encounter Details Date Type Department Care Team ([facility] Contact Info) Description 10/03/2024 Telephone Adult Medicine [address] [phone] Verónica Walters MA Prior Authorization (Sallie) Social History Tobacco Use Types Packs/Day Years [...] on file documented as of this encounter Progress Notes * Verónica Walters MA - 10/03/2024 11:33 AM EST Prior Authorization for Medication-do not complete and send this encounter unless you have the fax from the pharmacy. Is this a Cover My Meds request: Yes -- [place] Code [id number] Name of Medication Zituvio Dose of Medication 25mg What is the RX # from the faxed refill? How does patient take this med? 1 po qd What Pharmacy did the fax come from: [facility] fax #: [phone] [employer] Party Information from fax: What Prescription Plan does the patient have? [facility] BIN/PCN if applicable: [id number]/ADV Cardholder ID: [id number] Person Code: Relationship Code: Help desk phone: [phone] documented in this encounter Plan of Treatment Upcoming Encounters Date Type Department Care Team (Late st Contact Info) Description 11/11/2024 11:00 AM EDT Office Visit Adult Medicine [address] [phone] Kyle Bean MD [address] [place] [address] documented as of this encounter Visit Diagnoses Not on filedocumented in this encounter Care Teams Director Strategic Planning Relationship Specialty Start Date End Date Kyle Bean MD [address] [place] [address] PCP - General 04/23/24 documented as of this encounter
--- OUTSIDE RECORDS SUMMARY | 2024-10-16 09:55 | XMS_ITS | Clinical Summary ---
Author Organization [facility] Address [address] [place] [address] Phone Care Team Providers Care Meat Sales And Storage Manager Name Role Phone Kyle Bean MD Primary Care Provider Allergies No known active allergies Medications amLODIPine (NORVASC) 10 mg tablet Take 1 tablet (10 mg total) by mouth 1 (one) time each day. 4 Active atorvastatin (LIPITOR) 40 mg tablet Take 1 tablet (40 mg total) by mouth 1 (one) time each day. 4 Active carvediloL (COREG) 12.5 mg tablet Take 1 tablet (12.5 mg total) by mouth. 4 Active apixaban (ELIQUIS) 5 mg tablet Take 1 tablet (5 mg total) by mouth 2 (two) times a day. 4 Active empagliflozin (Jardiance) 25 mg tablet Take 1 tablet (25 mg total) by mouth. 4 Active levothyroxine (SYNTHROID, LEVOTHROID) 50 mcg tablet Take 1 tablet (50 mcg total) by mouth 1 (one) time each day. 4 Active pantoprazole (PROTONIX) 40 mg EC tablet Take 1 tablet (40 mg total) by mouth 1 (one) time each day. 4 Active sertraline (ZOLOFT) 50 mg tablet Take 1 tablet (50 mg total) by mouth 1 (one) time each day. 4 Active calcitrioL (ROCALTROL) 0.25 mcg capsule Take 1 capsule (0.25 mcg total) by mouth 1 (one) time each day. Active coenzyme Q-10 50 mg capsule Take by mouth. Active ondansetron (ZOFRAN) 4 mg/5 mL solution Take by mouth 1 (one) time. Active albuterol HFA (ProAir HFA) 90 mcg/actuation inhaler Inhale 2 puffs by mouth every 6 (six) hours if needed for wheezing or shortness of breath. 8.5 g 2 4 Active SITagliptin (Zituvio) 25 mg tablet Take 25 mg by mouth 1 (one) time each day. 90 tablet 1 5 Active traMADoL 5 mg/mL solution Take 50 mg by mouth every 4 (four) hours. Max Daily Amount: 300 mg 09/27/19 25 Discontinu ed(Therapy completed) SITagliptin phosphate (Januvia) 25 mg tablet Take 1 tablet (25 mg total) by mouth 1 (one) time each day. 90 tablet 1 4 09/30/19 25 Discontinu ed(Cost of medication ) Active Problems Problem Noted Date Diagnosed Date Diabetic foot 06/19/2024 Renal mass, right 06/19/2024 Anxiety and depression 05/07/2024 Chronic anemia 05/07/2024 CKD stage 4 due to type 2 diabetes mellitus 04/28 CVA, old, hemiparesis 05/07/2024 Diabetic foot infection 05/07/2024 Gastroesophageal reflux disease without esophagi tis 05/07/2024 Hypothyroidism 05/07/2024 Primary hypertension 05/07/2024 Type 2 diabetes mellitus wit h diabetic nephropathy, without long-term current use of insulin 05/07/2024 Patent foramen ovale 08/13/2019 Overview (07/04/2024): Added automatically from request for surgery [id number] Encounters Date Type Department Care Team Description 10/03/2024 Telephone Adult Medicine [address] [phone] Verónica Walters [place] Prior Authorization (Zituvio) 09/24/2024 Telephone Adult Medicine [address] [phone] Kyle Bean MD 09/17/2024 Telephone Adult Medicine [address] [phone] Mariya Reardon RN Prior Auth 08/25/2024 Billing Patient Not Present Adult [address] [phone] Kyle Bean MD Type 2 diabetes mellitus with diabetic nephropathy, without long-term current use of insulin (CMS/HCC) (Primary Dx); CVA, old, hemiparesis (CMS/HCC); Patent foramen ovale; Primary hypertension; CKD stage 4 due to type 2 diabetes mellitus (CMS/HCC); Chronic anemia; Acquired hypothyroidism; Anxiety and depression; Gastroesophageal reflux disease without esophagitis 08/13/2024 2:00 PM EST Office Visit Adult [address] [phone] Kyle Bean MD Primary hypertension (Primary Dx); Type 2 diabetes mellitus with diabetic nephropathy, without long-term current use of insulin (CMS/HCC); Left foot drop; CVA, old, hemiparesis (CMS/HCC); Renal cyst, right; CKD stage 4 due to type 2 diabetes mellitus (CMS/HCC); Acquired hypothyroidism; Chronic anemia; Anxiety and depression; Chronic obstructive pulmonary disease, unspecified COPD type (CMS/HCC) 08/08/2024 9:40 AM EST Lab Draw Station - [address] [place] [address] [address] [place] [id number] Chronic kidney disease, stage III (moderate) (CMS/HCC) (Primary Dx); Chronic anemia; CKD stage 4 due to type 2 diabetes mellitus (CMS/HCC); Type 2 diabetes mellitus with diabetic nephropathy, without long-term current use of insulin (CMS/HCC); Screening for prostate cancer 08/08/2024 9:15 AM EST Office Visit Orthopedic Surgery - [place] [address] [facility] [address] [place] [phone] Noe Muir DPM Poorly controlled type 2 diabetes mellitus with neuropathy ([facility]) (Primary Dx); Arthritis of both feet; Foot drop, left; Skin ulcer of midfoot region, left, with fat layer exposed ([facility]/HCC); Dermatophytosis, nail 07/29/2024 Telephone Adult [address] [phone] Kyle Bean MD vna 07/17/2024 Telephone Adult [address] [phone] Kyle Bean MD LAB ORDERS 07/16/[address] [phone] Kyle Bean MD triage from Last 3 Months Immunizations Name Administration Dates Next Due Influenza trivalent, 0.5mL, preservative free (Fluarix; FluLaval; Fluzone) ages 6mo and older (Afluria) 3 years and older 05/07/2024 Pneumococcal conjugate 20 va lent (Prevnar 20, PCV 20) 2mo and older 08/13/2024 Surgical History Surgery Date Site/Laterality Comments OTHER SURGICAL HISTORY PROCEDURE: LAPAROSCOPY, CHOLECYSTECTOMY OTHER SURGICAL HISTORY PROCEDURE: IMPLANTABLE LOOP RECORDER ANALYSIS OTHER SURGICAL HISTORY PROCEDURE: HISTORY OTHER; COMMENT: benign neck tumor removal 1997 Medical History Medical History Date Comments CVA, old, hemiparesis (CMS/HCC) DX:CVA, old, hemiparesis (HCC) DM2 (diabetes mellitus, type 2) (CMS/HCC) DX:DM2 (diabetes mellitus, type 2) ([facility]) HTN (hypertension) DX:HTN (hyper tension) CKD stage G4/A1, GFR 15-29 a nd albumin creatinine ratio <30 mg/g (CMS/HCC) DX:CKD stage G4/A1 , GFR 15-29 and albumin creatinine ratio <30 mg/g (HCC) PFO (patent foramen ovale) DX:PF O (patent foramen ovale) Hypothyroidism DX:Hypothyroidis m Anxiety and depression DX:Anxiet y and depression Osteomyelitis of foot (CMS/HCC) DX:Osteomyelitis of foot ([facility]) Renal mass, right Anemia Gastroesophageal reflux disease Family History Medical History Relation Name Comments Diabetes Brother Other cancer Father Diabetes Sister Other: pfo Sister Coronary artery disease Neg Hx Relation Name Status Comments Brother Father Sister Social History Tobacco Use Types Packs/Day Years Used Date Smoking Tobacco: Former Cigarettes 1 41.4 1 981 - 01/26/2022 Smokeless Tobacco: Never Tobacco Cessation:Counseling Given: Not Answered Alcohol Use Standard Drinks/Week Comments Never 0 (1 standard drink = 0.6 oz pur e alcohol) Sex and Gender Information Value Date Recorded Sex Assigned at Male 07/02/2024 10:48 AM EST Legal Sex Male 11:14 AM EST Gender Identity Male 07/02/2024 10:48 AM EST Sexual Orientation Not on file Obstetrics History Last Filed Vital Signs Vital Sign Reading Time Taken Comments Blood Pressure 138/80 08/13/2024 1:52 PM EST Pulse 70 08/13/2024 1:52 PM EST Temperature 36.7 ??C (98 ??F) 08/13/2024 1:52 PM EST Respiratory Rate - - Oxygen Saturation 98% 08/13/2024 1:52 PM EST Inhaled Oxygen Concentration - - Weight 108 kg (237 lb) 08/13/2024 1:52 PM EST Height 185.4 cm (6' 1 ) 08/13/2024 1:52 PM EST Body Mass Index 31.27 08/13/2024 1:52 PM EST Plan of Treatment Upcoming Encounters Date Type Department Care Team (Late st Contact Info) Description 11/11/2024 11:00 AM EDT Office Visit Adult Medicine [address] [phone] Kyle Bean MD [address] [place] [phone] Health Maintenance Due Date Last Done Comments COVID-19 Vaccine (#1) 1973 Diabetes: Annual Foot Exam 1978 Diabetes: Annual Retina Eye Exam 1978 DTaP,Tdap,and Td Vaccines (1 - Tdap) 1987 Hepatitis A Vaccines (1 of 2 - Risk 2-dose series) 1987 Hepatitis B Vaccines (1 of 3 - 19+ 3-dose series) 1987 Zoster Vaccines (1 of 2) 2018 Colorectal Cancer Screening: Colonoscopy 07/26/2022 Depression Screening 07/26/2022 HIV Screening 07/26/2022 Hepatitis C Screening 07/26/2022 Social Influencers of Health Screening 07/26/2022 Diabetes: Annual Urine Albumin-Creatinine Ratio (uACR) 06/09/2024 Diabetes: Blood Sugar Control Test (HGBA1C) 02/06/2025 08/08/2024, 06/10/2024, 06/10/2024 Lung Cancer Screening (Low Dose CT) 07/03/2025 07/03/2024 Diabetes: Annual GFR (Glomerular Filtration Rate) 08/08/2025 08/08/2024, 06/10/2024, 06/10/2024, Additional history exists Hypertension/CHF/CAD Annual BMP Blood Test 08/08/2025 08/08/2024, 06/10/2024, 06/10/2024, Additional history exists Cholesterol Screening (Lipid Panel) 06/10/2029 06/10/2024, 06/10/2024 Influenza Vaccine Completed 05/07/2024 Pneumococcal Vaccine: 50+ Years Completed 08/13/2024 Pneumococcal Vaccine: Pediatrics (0 to 5 Years) and At-Risk Patients (6 to 64 Years) Completed 08/13/2024 HIB Vaccines Aged Out No longer eligi ble based on patient's age to complete this topic HPV Vaccines Aged Out No longer eligi ble based on patient's age to complete this topic IPV Vaccines Aged Out No longer eligi ble based on patient's age to complete this topic MMR Vaccines Aged Out No longer eligi ble based on patient's age to complete this topic Meningococcal ACWY Vaccine Aged Out N o longer eligible based on patient's age to complete this topic Meningococcal B Vacine Aged Out No lo nger eligible based on patient's age to complete this topic RSV Immunization Patients Under 20 months Aged Out No longer eligible based on patient's age to complete this topic Varicella Vaccines Aged Out No longer eligible based on patient's age to complete this topic Procedures Procedure Name Priority Date/Time Associated Diagnosis Comments CBC WITH AUTO DIFFERENTIAL Routine 08/08/2024 9:42 AM EST Chronic anemia CKD stage 4 due to type 2 diabetes mellitus (CMS/HCC) Type 2 diabetes mellitus with diabetic nephropathy, without long-term current use of insulin (CMS/HCC) PHOSPHORUS Routine 08/08/2024 9:42 AM EST Chronic kidney disease, stage III (moderate) (CMS/HCC) PARATHYROID HORMONE INTACT Routine 08/08/2024 9:42 AM EST Chronic kidney disease, stage III (moderate) (CMS/HCC) PROSTATE SPECIFIC ANTIGEN SCREEN Routine 08/08/2024 9:42 AM EST Screening for prostate cancer CBC AND DIFFERENTIAL Routine 08/08/2024 9:42 AM EST Chronic anemia CKD stage 4 due to type 2 diabetes mellitus (CMS/HCC) Type 2 diabetes mellitus with diabetic nephropathy, without long-term current use of insulin (CMS/HCC) HEMOGLOBIN A1C Routine 08/08/2024 9:42 AM EST Chronic anemia CKD stage 4 due to type 2 diabetes mellitus ([facility]/HCC) Type 2 diabetes mellitus with diabetic nephropathy, without long-term current use of insulin (CMS/HCC) BASIC METABOLIC PANEL Routine 08/08/2024 9:42 AM EST Chronic anemia CKD stage 4 due to type 2 diabetes mellitus ([facility]/HCC) Type 2 diabetes mellitus with diabetic nephropathy, without long-term current use of insulin ([facility]/HCC) CT LUNG SCREENING Routine 07/03/2024 2:3 1 PM EST Tobacco abuse LIPID PANEL Routine 06/10/2024 from Last 3 Months or Most Recently Relevant to Health Maintenance Results * Prostate specific antigen screen (08/08/2024 9:42 AM EST) PSA 2.88 0.00 - 4.00 ng/mL LAB CHEMISTRY METHOD 08/08/2024 4:12 PM EST [facility] Blood Venous blood specimen / Unknown Venipuncture / Unknown 08/08/2024 9:42 AM EST 08/08/2024 9:[address] [facility] - 08/08/2024 4:12 PM EST The Siemens Advia Centaur Chemiluminescent Immunoassay is used. Results obtained with different assay methods or kits cannot be used interchangeably. Results cannot be interpreted as absolute evidence of the presence or absence of malignant disease. us Kyle Bean MD LAB BLOOD ORDERABLES Final Result [facility] [address] [place] [address], [place] [phone] * (ABNORMAL) CBC auto differential (08/08/2024 9:42 AM EST) WBC 8.5 4.8 - 10.8 K/mcL LAB HEMETOLOGY METHOD 08/08/2024 2:39 PM [facility] RBC 4.20(L) 4.50 - 5.50 M/mcL LAB HEMETOLOGY METHOD 08/08/2024 2:39 PM [facility] Hemoglobin 11.7(L) 13.5 - 17.5 g/dL LAB HEMETOLOGY METHOD 08/08/2024 2:39 PM [facility] Hematocrit 38.0(L) 42.0 - 54.0 % LAB HEMETOLOGY METHOD 08/08/2024 2:39 PM [facility] MCV 91.6 79.0 - 98.0 FL LAB HEMETOLOGY METHOD 08/08/2024 2:39 PM [facility] MCH 28.2 27.0 - 32.0 pcg LAB HEMETOLOGY METHOD 08/08/2024 2:39 PM [facility] MCHC 30.8(L) 32.0 - 37.0 g/dL LAB HEMETOLOGY METHOD 08/08/2024 2:39 PM [facility] RDW 13.4 11.0 - 15.0 % LAB HEMETOLOGY METHOD 08/08/2024 2:39 PM [facility] Platelets 362 130 - 400 K/mcL LAB HEMETOLOGY METHOD 08/08/2024 2:39 PM [facility] MPV 10.9 7.0 - 11.0 FL LAB HEMETOLOGY METHOD 08/08/2024 2:39 PM [facility] NRBC 0.0 <1.0 % LAB HEMETOLOGY METHOD 08/08/2024 2:39 PM [facility] NRBC Absolute 0.00 <0.10 K/mcL LAB HEMETOLOGY METHOD 08/08/2024 2:39 PM [facility] Neutrophils Relative 79.8 % LAB HEMETOLOGY METHOD 08/08/2024 2:39 PM [facility] Lymphocytes Relative 11.7 % LAB HEMETOLOGY METHOD 08/08/2024 2:39 PM [facility] Monocytes Relative 4.8 % LAB HEMETOLOGY METHOD 08/08/2024 2:39 PM [facility] Eosinophils Relative 2.5 % LAB HEMETOLOGY METHOD 08/08/2024 2:39 PM [facility] Basophils Relative 0.6 % LAB HEMETOLOGY METHOD 08/08/2024 2:39 PM [facility] Immature Granulocytes Relative 0.6 % LAB HEMETOLOGY METHOD 08/08/2024 2:39 PM [facility] Neutrophils Absolute 6.80 1.50 - 7.00 K/mcL LAB HEMETOLOGY METHOD 08/08/2024 2:39 PM [facility] Lymphocytes Absolute 1.00 1.00 - 5.00 K/mcL LAB HEMETOLOGY METHOD 08/08/2024 2:39 PM [facility] Monocytes Absolute 0.41 0.20 - 1.00 K/mcL LAB HEMETOLOGY METHOD 08/08/2024 2:[address] [facility] Eosinophils Absolute 0.21 0.00 - 0.50 K/mcL LAB HEMETOLOGY METHOD 08/08/2024 2:[address] [facility] Basophils Absolute 0.05 0.00 - 0.20 K/mcL LAB HEMETOLOGY METHOD 08/08/2024 2:[address] [facility] Immature Granulocytes Absolute 0.05(H) 0.00 - 0.03 K/mcL LAB HEMETOLOGY METHOD 08/08/2024 2:[address] [facility] Blood Venous blood specimen / Unknown Venipuncture / Unknown 08/08/2024 9:42 AM EST 08/08/2024 9:42 AM EST Kyle Bean MD LAB BLOOD ORDERABLES Final Result [facility] [address] [place] [address], [place] [phone] * Phosphorus (08/08/2024 9:42 AM EST) Phosphorus 3.7 2.5 - 4.5 mg/dL LAB CHEMISTRY METHOD 08/08/2024 4:[address] [facility] Blood Venous blood specimen / Unknown Venipuncture / Unknown 08/08/2024 9:42 AM EST 08/08/2024 9:42 AM EST Aditya Nava MD LAB BLOOD ORDERABL ES Final Result [facility] [address] [place] [address], [place] [phone] * (ABNORMAL) Parathyroid hormone intact (08/08/2024 9:42 AM EST) PTH 448.9(H) 18.5 - 88.0 pcg/mL LAB CHEMISTRY METHOD 08/08/2024 4:[address] [facility] Blood Venous blood specimen / Unknown Venipuncture / Unknown 08/08/2024 9:42 AM EST 08/08/2024 9:42 AM EST Aditya Nava MD LAB BLOOD ORDERABL ES Final Result Performing Organization Address [facility]/ZIP Co de Phone Number [facility] [address] [place] [address], [place] [phone] * (ABNORMAL) Hemoglobin A1c (08/08/2024 9:42 AM EST) Pathologist [facility] Hemoglobin A1C 8.0(H) <6.5 % LAB CHEMISTRY METHOD 08/08/2024 10:[address] [facility] Mean Bld Glu Estim. 183 mg/dL LAB CHEMISTRY METHOD 08/08/2024 10:[address] [facility] Blood Venous blood specimen / Unknown Venipuncture / Unknown 08/08/2024 9:42 AM EST 08/08/2024 9:42 AM EST Kyle Bean MD LAB BLOOD ORDERABLES Final Result Performing Organization Address [facility]/ZIP Co de Phone Number [facility] [address] [place] [address], [place] [phone] * (ABNORMAL) Basic metabolic panel (08/08/2024 9:42 AM EST) Pathologist [facility] Sodium 141 133 - 145 mmol/L LAB CHEMISTRY METHOD 08/08/2024 4:[address] [facility] Potassium 4.1 3.5 - 5.5 mmol/L LAB CHEMISTRY METHOD 08/08/2024 4:02 PM [facility] Chloride 111(H) 96 - 110 mmol/L LAB CHEMISTRY METHOD 08/08/2024 4:[address] [facility] CO2 22 21 - 32 mmol/L LAB CHEMISTRY METHOD 08/08/2024 4:02 PM [facility] Anion Gap 8 3 - 11 LAB CHEMISTRY METHOD 08/08/2024 4:02 PM [facility] Glucose 168(H) 70 - 100 mg/dL LAB CHEMISTRY METHOD 08/08/2024 4:02 PM [facility] BUN 39(H) 5 - 25 mg/dL LAB CHEMISTRY METHOD 08/08/2024 4:02 PM [facility] Creatinine 3.79(H) 0.70 - 1.30 mg/dL LAB CHEMISTRY METHOD 08/08/2024 4:02 PM [facility] eGFR 18(L) >=60 mL/min/1. 73m2 LAB CHEMISTRY METHOD 08/08/2024 4:02 PM [facility] Comment:Calculation based on the??Chronic Kidney Disease Epidemiology Collaboration (CKD-EPI) equation refit??without adjustment for race. BUN/Creatinine Ratio 10.3 LAB CHEMISTRY METHOD 08/08/2024 4:02 PM [facility] Calcium 8.7 8.5 - 10.5 mg/dL LAB CHEMISTRY METHOD 08/08/2024 4:02 PM [facility] Blood Venous blood specimen / Unknown Venipuncture / Unknown 08/08/2024 9:42 AM EST 08/08/2024 9:42 AM EST us Kyle Bean MD LAB BLOOD ORDERABLES Final Result [facility] [address] [place] [address], * CT Lung Screening (07/03/2024 2:31 PM EST) Anatomical Region Laterality Modality Chest Computed Tomogra phy 07/04/2024 10:5 3 AM EST Impressions 07/04/2024 10:57 AM EST No significant nodules identified. ?? Lung-RADS 1. ??Follow up examination is advised in one year. -------- FINAL REPORT -------- Dictated By: Remi Rutherford Dictated Date: 07/04/2024 10:53 ET Assigned Physician: Remi Rutherford Reviewed and Electronically Signed By: Remi Rutherford Signed Date: 07/04/2024 10:57 ET Workstation ID: [id number] Transcribed By: Self Edit Transcribed Date: 07/04/2024 10:53 ET Narrative 07/04/2024 10:57 AM EST PROCEDURE: CT chest lung cancer screening low dose examination. INDICATION: CT lung screening. TECHNIQUE: Chest CT without intravenous contrast was performed. ??Low-dose examination was performed. ??Reformatted images were evaluated. DOSE: CTDIvol: 4.8/4.8mGy. ??Total exam DLP: 185.0mGy-cm COMPARISON: ??None. ??Baseline exam FINDINGS: NODULES: No significant nodules are identified. LUNGS: Minimal emphysematous changes. OTHER: Limited views of the upper abdomen appear normal. ??Coronary atherosclerotic disease. ??No significant mediastinal lymphadenopathy. ??Mild degenerative changes of the spine. Procedure Note Remi Rutherford MD - 07/04/2024 PROCEDURE: CT chest lung cancer screening low dose examination. INDICATION: CT lung screening. TECHNIQUE: Chest CT without intravenous contrast was performed. Low- doseexamination was performed. Reformatted images were evaluated. DOSE: CTDIvol: 4.8/4.8mGy. Total exam DLP: 185.0mGy-cm COMPARISON: None. Baseline exam FINDINGS: NODULES: No significant nodules are identified. LUNGS: Minimal emphysematous changes. OTHER: Limited views of the upper abdomen appear normal. Coronaryatherosclerotic disease. No significant mediastinal lymphadenopathy.Mild degenerative changes of the spine. IMPRESSION: No significant nodules identified. Lung-RADS 1. Follow up examination is advised in one year. -------- FINAL REPORT -------- Dictated By: Remi Rutherford Dictated Date: 07/04/2024 10:53 ET Assigned Physician: Remi Rutherford Reviewed and Electronically Signed By: Remi Rutherford Signed Date: 07/04/2024 10:57 ET Workstation ID: [id number] Transcribed By: Self Edit Transcribed Date: 07/04/2024 10:53 ET Giselle Adams MD IMG CT PROCEDURES Final Result * (ABNORMAL) Lipid panel (06/10/2024) LDL/HDL Ratio 4 0 - 4 Triglycerides 202(A) 0 - 150 mg/dL Cholesterol 152 0 - 200 mg/dL HDL 42 >=40 mg/dL LDL Cholesterol 70 0 - 100 mg/dL Blood Venous blood specimen / Unknown us Historical Provider LAB BLOOD ORDERABLES Xin l Result from Last 3 Months or Most Recently Relevant to Health Maintenance [place] [address] [place] [address] ([facility]) Care Teams Meat Sales And Storage Manager Relationship Specialty Start Date End Date Kyle Bean MD [address] [place] [address] PCP - General 04/23/24
--- OUTSIDE RECORDS SUMMARY | 2024-10-16 09:55 | XMS_ITS | Encounter Summary ---
Author Organization [facility] [place] [address] Care Team Providers Care Damage Assessor Name Role Phone Kyle Bean MD Primary Care Provider [phone] Reason for Visit * Reason Onset Date Comments Prior Auth 09/17/2024 Encounter Details Date Type Department Care Team (Late st Contact Info) Description 09/17/2024 Telephone Adult Medicine [address] [phone] Mariya Reardon RN Prior Auth Social History Tobacco Use Types Packs/Day Years [...] on file documented as of this encounter Ordered Prescriptions Prescription Sig Dispense Quantity Refills Last Filled Start Date End Date SITagliptin (Zituvio) 25 mg tablet Take 25 mg by mouth 1 (one) time each day. 90 tablet 1 09/30/2024 documented in this encounter Progress Notes * Tay Boston MA - 10/01/2024 4:34 PM EST Left message to return call regarding message below. * Kyle Bean MD - 09/30/2024 8:35 AM EST Please inform the patient as well as Jodie pharmacist that I sent an alternative prescription Zituvio in place of Januvia * Jenna Sarkar MA - 09/30/2024 8:06 AM EST Formulary Alternatives: saxagliptin, ZITUVIO Thank you Please reply back to [facility] (Prior Auth Pool) Jenna Power [facility] Prior Authorization Ext [phone] * Haven Kevin - 09/25/2024 10:07 AM EST Veda is calling in regards to this Prior Auth request. Checking status on the Prior Auth. * Mariya Reardon - 09/17/2024 8:44 AM EST Prior Authorization for Medication-do not complete and send this encounter unless you have the fax from the pharmacy. Is this a Cover My Meds request: Yes -- [place] Code [id number] Name of Medication Januvia Dose of Medication 25MG documented in this encounter Plan of Treatment Upcoming Encounters Date Type Department Care Team (Late st Contact Info) Description 11/11/2024 11:00 AM EDT Office Visit Adult Medicine [address] [phone] Kyle Bean MD [address] [place] [phone] documented as of this encounter Visit Diagnoses Not on filedocumented in this encounter Discontinued Medications Medication Sig Discontinue Reason Start Date End Da te SITagliptin phosphate (Januvia) 25 mg tablet Take 1 tablet (25 mg total) by mouth 1 (one) time each day. Cost of medication 08/13/2024 09/30/2024 documented as of this encounter Care Teams Damage Assessor Relationship Specialty Start Date End Date Kyle Bean MD [address] [place] [id number] PCP - General 04/23/24 documented as of this encounter
--- OUTSIDE RECORDS SUMMARY | 2024-10-16 09:55 | XMS_ITS ---
Author Organization [facility] Address [address] [place] [address] Care Team Providers Care Fuel Dock Attendant Name Role Phone Stanislav LEDESMA, Hakeem Primary Care Provider Unavailab Jarred Daniels [phone] REASON FOR VISIT excruciating pain on LF Encounters Encounter Location Date Provider Diagnosis [facility] [address] [place] [address] 04/24/2024 Jarred Oleary Plan Of Treatment No Information Progress Notes * Jacob [birth year]ODOB:[birth year] (54 yo M)Acc No.[id number]:04/24/2024 Patient:?Jacob LOCO :1970???Age:54 Y???Sex:Male Address:[address], [address], [place], [address] * true * Date:? Generated for Printi ng/Faxing/eTransmitting on:?10/16/2024 09:54 AM EST
--- OUTSIDE RECORDS SUMMARY | 2024-10-16 09:55 | XMS_ITS | Patient Health Record ---
Author Organization [facility] Address [address] [place] [address] Care Team Providers Care Hot Mill Worker Name Role Phone Stanislav LEDESMA, Hakeem Primary Care Provider Jarred Arciniega Unavailable [phone] Allergies No Known Allergies Reason For Referral No Information Medications Medication SIG (Take, Route, Frequency, Duration) Notes Start Date End Date Status Eliquis 5 MG Oral for 30 Activ e Atorvastatin Calcium 40 MG TAKE 1 TABLET BY MOUTH EVERY DAY Oral for 90 Active Ondansetron 4 MG Oral for 5 No t-Taking Carvedilol 12.5 MG TAKE 1 TABLET BY LILIBETH TH TWICE A DAY WITH FOOD FOR 90 DAYS Oral for 90 Active Sertraline HCl 100 MG Oral for 90 Not-Taking amLODIPine Besylate 10 MG Oral for 90 Active Cipro 500 MG 1 tablet Orally ever y 12 hrs for 10 days 01/02/2023 Not-Taking ARIPiprazole 2 MG Oral for 30 Active Symbicort 160-4.5 MCG/ACT Inhalation for 30 Not-Taking Extra Depth Diabetic Shoes with 3 Pair Custom heat-molded multi-density innersoles for 1 year Dx: Active Keflex Active Ciclopirox 0.77 % 1 application to affected area Externally Twice a day to effected nails for 30 days 03/23/2023 Not-Taking Pantoprazole Sodium 40 MG Oral for 90 Active Amoxicillin-Pot Clavulanate 875 875-125 MG one tab Orally every 12 hrs for 10 day(s) Active Jardiance 10 MG TAKE 1 TABLET BY LILIBETH TH EVERY DAY FOR 30 DAYS Oral for 30 Active NIFEdipine ER Osmotic Release 30 MG Oral for 30 Not-Taking Levothyroxine Sodium 50 MCG Oral for 90 Active hydrALAZINE HCl 25 MG Oral for 30 Not-Taking metFORMIN HCl 500 MG Oral for 90 Not-Taking Immunizations Vaccine Route Administration Date Status Comme nts Influenza Unknown 04/28/2023 Administered Social History Tobacco Use: Social History Observation Description Date Details (start date - stop date) Former Smoker NA - NA Tobacco Use/Smoking Question Answer Notes Are you a: former smoker Additional Findings: Tobacco Non-User Current no n-smoker Alcohol Screen Question Answer Notes Did you have a drink containing alcohol in the p ast year? No Points 0 Interpretation Negative Tobacco use other than smoking: Question Answer Notes Are you an other tobacco user? No Problems Problem Type SNOMED Code ICD Code Onset Dates Problem Status W/U Status Risk Notes Problem Acquired hammer toe of right foot (0432720053094663 ) Other hammer toe(s) (acquired), right foot (M20.41) Active confirmed Problem Polyneuropathy due to type 2 diabetes mellitus (718595806) Type 2 diabetes mellitus with diabetic polyneuropathy (E11.42) Active confirmed Vital Signs Height 6ft 1in in 11/29/2023 Weight 230 lbs 11/29/2023 BMI 30.34 kg/m2 11/29/2023 Encounters Encounter Location Date Provider Diagnosis [address] [address] 11/29/2023 Jarred Oleary Tinea unguium B35.1 ; Pain in right toe(s) M79.674 ; Pain in left toe(s) M79.675 ; Type 2 diabetes mellitus with diabetic polyneuropathy E11.42 ; Skin disease L98.9 ; Ingrowing nail L60.0 ; Xerosis cutis L85.3 ; Left foot drop M21.372 ; Other hammer toe(s) (acquired), right foot M20.41 and Tinea pedis B35.[address] [address] 02/28/2024 Jarred Oleary [address] [address] 04/24/2024 Jarred Oleary Assessments Encounter Date Diagnosis (ICD Code) Assessment Notes Treatment Notes Treatment Clinical Notes Section Notes 11/29/2023 Tinea unguium (ICD-10 - B35.1) 11/29/2023 Pain in right toe(s) (ICD-10 - M79.674) 11/29/2023 Pain in left toe(s) (ICD-10 - M79.675) 11/29/2023 Type 2 diabetes mellitus with diabetic polyneuropathy (ICD-10 - E11.42) 11/29/2023 Skin disease (ICD-10 - L98.9) 11/29/2023 Ingrowing nail (ICD-10 - L60.0) 11/29/2023 Xerosis cutis (ICD-10 - L85.3) 11/29/2023 Left foot drop (ICD-10 - M21.372) 11/29/2023 Other hammer toe(s) (acquired), right foot (ICD-10 - M20.41) 11/29/2023 Tinea pedis (ICD-10 - B35.3) Plan Of Treatment Pending Test Test Name Order Date X ray : Foot, right 3V 01/18/2023 [id number] SKIN/TISSUE 03/23/2023 [id number] SKIN/TISSUE 01/18/2023 [id number] SKIN LESIONS, OVER 4 07/08/20 22 [id number] SKIN LESIONS, 2 TO 4 01/03/20 23 [id number] SKIN LESIONS, 2 TO 4 03/23/20 23 Insurance Providers Payer Name Payer Address Payer Phone Subscriber Number Group Number Insured Name Patient Relationship to Insured Coverage Start Date Coverage End Date [facility] [address] [place] [address] [id number] Jacob Loco Self - patient is the insured Medical (General) History Medical History History ICD Code Depression High blood pressure Diabetic Stroke Surgical History Surgery Date(Month/Year) tumor removal 1983 gall bladder 2002
[2024-10-16 10:05] VITALS: BP 140/80
== END 2024-10-16 10:16 | disposition home or self-care (01) ==
PROVIDERS: PCP Internal Medicine; Visit Provider Internal Medicine Hypertension Specialist
DX: I12.9 Hypertensive chronic kidney disease with stage 1 through stage 4 chronic kidney disease, or unspecified chronic kidney disease (principal); N18.4 Chronic kidney disease, stage 4 (severe); N28.89 Other specified disorders of kidney and ureter; E11.9 Type 2 diabetes mellitus without complications; D64.9 Anemia, unspecified; N25.81 Secondary hyperparathyroidism of renal origin
CPT/HCPCS: 99214

== ENCOUNTER 2024-10-16 09:37 | Outpatient (REF) | payer BC, SELFPAY ==
--- OUTSIDE RECORDS SUMMARY | 2024-10-16 11:00 | XMS_ITS | Encounter Summary ---
Author Organization [facility] [place] [address] Care Team Providers Care Prop Attendant Name Role Phone Kyle Bean MD Primary Care Provider [phone] Reason for Visit * Reason Onset Date Comments Prior Authorization 10/03/2024 Sallie Encounter Details Date Type Department Care Team ([facility] Contact Info) Description 10/03/2024 Telephone Adult Medicine [address] [address] Verónica Walters [place] Prior Authorization (Sallie) Social [...] My Meds request: Yes -- Rowell Code [id number] Name of Medication Zituvio Dose of Medication 25mg What is the RX # from the faxed refill? How does patient take this med? 1 po qd What Pharmacy did the fax come from: [facility] fax #: [phone] [employer] Party Information from fax: What Prescription Plan does the patient have? [facility] BIN/PCN if applicable: [id number] Cardholder ID: [id number] Person Code: Relationship Code: Help desk phone: [phone] documented in this encounter Plan of Treatment Upcoming Encounters Date Type Department Care Team (Late st Contact Info) Description 11/11/2024 11:00 AM EDT Office Visit Adult Medicine [address] [address] Kyle Bean MD [address] [place] [address] documented as of this encounter Visit Diagnoses Not on filedocumented in this encounter Care Teams Prop Attendant Relationship Specialty Start Date End Date Kyle Bean MD [address] [place] [address] PCP - General 04/23/24 documented as of this encounter
--- OUTSIDE RECORDS SUMMARY | 2024-10-16 11:00 | XMS_ITS | Clinical Summary ---
Author Organization [facility] Address [address] [place] [address] Phone Care Team Providers Care Sack Cleaner Name Role Phone Kyle Bean MD Primary Care Provider [phone] Allergies No known active allergies Medications amLODIPine [...] (07/04/2024): Added automatically from request for surgery [id number] Encounters Date Type Department Care Team Description 10/03/2024 Telephone Adult Medicine [address] [address] Verónica Walters [place] Prior Authorization (Zituvio) 09/24/2024 Telephone Adult Medicine [address] [phone] Kyle Bean MD 09/17/2024 Telephone Adult Medicine [address] [phone] Mariya Reardon RN Prior Auth 08/25/2024 Billing Patient Not Present Adult [address] [phone] Kyle Bean MD Type 2 diabetes mellitus with diabetic nephropathy, without long-term current use of insulin (CMS/HCC) (Primary Dx); CVA, old, hemiparesis (CMS/HCC); Patent foramen ovale; Primary hypertension; CKD stage 4 due to type 2 diabetes mellitus (CMS/HCC); Chronic anemia; Acquired hypothyroidism; Anxiety and depression; Gastroesophageal reflux disease without esophagitis 08/13/2024 2:00 PM EST Office Visit Adult [address] [phone] Kyle Bean MD Primary hypertension (Primary Dx); [...] 9:40 AM EST Lab Draw Station - [address] [place] [address] [address] [place] [phone] Chronic kidney disease, stage III (moderate) (CMS/HCC) (Primary Dx); Chronic anemia; CKD stage 4 due to type 2 diabetes mellitus (CMS/HCC); Type 2 diabetes mellitus with diabetic nephropathy, without long-term current use of insulin (CMS/HCC); Screening for prostate cancer 08/08/2024 9:15 AM EST Office Visit Orthopedic Surgery - [place] [address] [facility] [address] [place] [phone] Noe Muir DPM Poorly controlled type 2 diabetes mellitus with neuropathy ([facility]) (Primary Dx); Arthritis of both feet; Foot drop, left; Skin ulcer of midfoot region, left, with fat layer exposed ([facility]/HCC); Dermatophytosis, nail 07/29/2024 Telephone Adult [address] [phone] Kyle Bean MD vna 07/17/2024 Telephone Adult [address] [phone] Kyle Bean MD LAB ORDERS 07/16/[address] [phone] Kyle Bean MD triage from Last 3 [...] 2) (CMS/HCC) DX:DM2 (diabetes mellitus, type 2) ([facility]) HTN (hypertension) DX:HTN (hyper tension) CKD stage G4/A1, GFR 15-29 a nd albumin creatinine ratio <30 mg/g (CMS/HCC) DX:CKD stage G4/A1 , GFR 15-29 and albumin creatinine ratio <30 mg/g (HCC) PFO (patent foramen ovale) DX:PF O (patent foramen ovale) Hypothyroidism DX:Hypothyroidis m Anxiety and depression DX:Anxiet y and depression Osteomyelitis of foot (CMS/HCC) DX:Osteomyelitis of foot ([facility]) Renal mass, right Anemia Gastroesophageal reflux disease [...] 11:00 AM EDT Office Visit Adult Medicine [address] [phone] Kyle Bean MD [address] [place] [phone] Health Maintenance Due Date Last Done Comments [...] 4 due to type 2 diabetes mellitus ([facility]/HCC) Type 2 diabetes mellitus with diabetic nephropathy, without long-term current use of insulin (CMS/HCC) BASIC METABOLIC PANEL Routine 08/08/2024 9:42 AM EST Chronic anemia CKD stage 4 due to type 2 diabetes mellitus ([facility]/HCC) Type 2 diabetes mellitus with diabetic nephropathy, without long-term current use of insulin ([facility]/HCC) CT LUNG SCREENING Routine 07/03/2024 2:3 1 PM EST Tobacco abuse LIPID PANEL Routine 06/10/2024 from Last 3 Months or Most Recently Relevant to Health Maintenance Results * Prostate specific antigen screen (08/08/2024 9:42 AM EST) PSA 2.88 0.00 - 4.00 ng/mL LAB CHEMISTRY METHOD 08/08/2024 4:12 PM EST [facility] ([facility] Blood Venous blood specimen / Unknown Venipuncture / Unknown 08/08/2024 9:42 AM EST 08/08/2024 9:42 AM EST Narrative [facility] - 08/08/2024 4:12 PM EST The Siemens Advia Centaur Chemiluminescent Immunoassay is used. Results obtained with different assay methods or kits cannot be used interchangeably. Results cannot be interpreted as absolute evidence of the presence or absence of malignant disease. us Kyle Bean MD LAB BLOOD ORDERABLES Final Result [facility] [address] [place] [address], [place] [phone] * (ABNORMAL) CBC auto differential (08/08/2024 9:42 AM EST) WBC 8.5 4.8 - 10.8 K/mcL LAB HEMETOLOGY METHOD 08/08/2024 2:39 PM [facility] RBC 4.20(L) 4.50 - 5.50 M/mcL LAB HEMETOLOGY METHOD 08/08/2024 2:39 PM [facility] Hemoglobin 11.7(L) 13.5 - 17.5 g/dL LAB HEMETOLOGY METHOD 08/08/2024 2:39 PM [facility] Hematocrit 38.0(L) 42.0 - 54.0 % LAB HEMETOLOGY METHOD 08/08/2024 2:39 PM [facility] MCV 91.6 79.0 - 98.0 FL LAB HEMETOLOGY METHOD 08/08/2024 2:39 PM [facility] MCH 28.2 27.0 - 32.0 pcg LAB HEMETOLOGY METHOD 08/08/2024 2:39 PM [facility] MCHC 30.8(L) 32.0 - 37.0 g/dL LAB HEMETOLOGY METHOD 08/08/2024 2:39 PM [facility] RDW 13.4 11.0 - 15.0 % LAB HEMETOLOGY METHOD 08/08/2024 2:39 PM [facility] Platelets 362 130 - 400 K/mcL LAB HEMETOLOGY METHOD 08/08/2024 2:39 PM [facility] MPV 10.9 7.0 - 11.0 FL LAB HEMETOLOGY METHOD 08/08/2024 2:39 PM [facility] NRBC 0.0 <1.0 % LAB HEMETOLOGY METHOD 08/08/2024 2:39 PM [facility] NRBC Absolute 0.00 <0.10 K/mcL LAB HEMETOLOGY METHOD 08/08/2024 2:39 PM [facility] Neutrophils Relative 79.8 % LAB HEMETOLOGY METHOD 08/08/2024 2:39 PM [facility] Lymphocytes Relative 11.7 % LAB HEMETOLOGY METHOD 08/08/2024 2:39 PM [facility] Monocytes Relative 4.8 % LAB HEMETOLOGY METHOD 08/08/2024 2:39 PM [facility] Eosinophils Relative 2.5 % LAB HEMETOLOGY METHOD 08/08/2024 2:39 PM [facility] Basophils Relative 0.6 % LAB HEMETOLOGY METHOD 08/08/2024 2:39 PM [facility] Immature Granulocytes Relative 0.6 % LAB HEMETOLOGY METHOD 08/08/2024 2:39 PM [facility] Neutrophils Absolute 6.80 1.50 - 7.00 K/mcL LAB HEMETOLOGY METHOD 08/08/2024 2:39 PM [facility] Lymphocytes Absolute 1.00 1.00 - 5.00 K/mcL LAB HEMETOLOGY METHOD 08/08/2024 2:39 PM [facility] Monocytes Absolute 0.41 0.20 - 1.00 K/mcL LAB HEMETOLOGY METHOD 08/08/2024 2:39 PM EST [facility] Eosinophils Absolute 0.21 0.00 - 0.50 K/mcL LAB HEMETOLOGY METHOD 08/08/2024 2:39 PM EST [facility] Basophils Absolute 0.05 0.00 - 0.20 K/mcL LAB HEMETOLOGY METHOD 08/08/2024 2:39 PM EST [facility] Immature Granulocytes Absolute 0.05(H) 0.00 - 0.03 K/mcL LAB HEMETOLOGY METHOD 08/08/2024 2:39 PM EST [facility] Blood Venous blood specimen / Unknown Venipuncture / Unknown 08/08/2024 9:42 AM EST 08/08/2024 9:42 AM EST Kyle Bean MD LAB BLOOD ORDERABLES Final Result [facility] [address] [place] [address], [place] [phone] * Phosphorus (08/08/2024 9:42 AM EST) Phosphorus 3.7 2.5 - 4.5 mg/dL LAB CHEMISTRY METHOD 08/08/2024 4:02 PM EST [facility] Blood Venous blood specimen / Unknown Venipuncture / Unknown 08/08/2024 9:42 AM EST 08/08/2024 9:42 AM EST Aditya Nava MD LAB BLOOD ORDERABL ES Final Result [facility] [address] [place] [address], [place] [phone] * (ABNORMAL) Parathyroid hormone intact (08/08/2024 9:42 AM EST) PTH 448.9(H) 18.5 - 88.0 pcg/mL LAB CHEMISTRY METHOD 08/08/2024 4:18 PM EST [facility] Blood Venous blood specimen / Unknown Venipuncture / Unknown 08/08/2024 9:42 AM EST 08/08/2024 9:42 AM EST Aditya Nava MD LAB BLOOD ORDERABL ES Final Result Performing Organization Address [facility]/ZIP Co de Phone Number [facility] [address] [place] [address], [place] [phone] * (ABNORMAL) Hemoglobin A1c (08/08/2024 9:42 AM EST) Pathologist [facility] Hemoglobin A1C 8.0(H) <6.5 % LAB CHEMISTRY METHOD 08/08/2024 10:31 PM EST [facility] Mean Bld Glu Estim. 183 mg/dL LAB CHEMISTRY METHOD 08/08/2024 10:31 PM EST [facility] Blood Venous blood specimen / Unknown Venipuncture / Unknown 08/08/2024 9:42 AM EST 08/08/2024 9:42 AM EST Kyle Bean MD LAB BLOOD ORDERABLES Final Result Performing Organization Address [facility]/ZIP Co de Phone Number [facility] [address] [place] [address], [place] [phone] * (ABNORMAL) Basic metabolic panel (08/08/2024 9:42 AM EST) Pathologist [facility] Sodium 141 133 - 145 mmol/L LAB CHEMISTRY METHOD 08/08/2024 4:02 PM EST [facility] Potassium 4.1 3.5 - 5.5 mmol/L LAB CHEMISTRY METHOD 08/08/2024 4:02 PM [facility] Chloride 111(H) 96 - 110 mmol/L LAB CHEMISTRY METHOD 08/08/2024 4:02 PM EST [facility] CO2 22 21 - 32 mmol/L LAB CHEMISTRY METHOD 08/08/2024 4:02 PM [facility] Anion Gap 8 3 - 11 LAB CHEMISTRY METHOD 08/08/2024 4:02 PM [facility] Glucose 168(H) 70 - 100 mg/dL LAB CHEMISTRY METHOD 08/08/2024 4:02 PM [facility] BUN 39(H) 5 - 25 mg/dL LAB CHEMISTRY METHOD 08/08/2024 4:02 PM [facility] Creatinine 3.79(H) 0.70 - 1.30 mg/dL LAB CHEMISTRY METHOD 08/08/2024 4:02 PM [facility] eGFR 18(L) >=60 mL/min/1. 73m2 LAB CHEMISTRY METHOD 08/08/2024 4:02 PM [facility] Comment:Calculation based on the??Chronic Kidney Disease Epidemiology Collaboration (CKD-EPI) equation refit??without adjustment for race. BUN/Creatinine Ratio 10.3 LAB CHEMISTRY METHOD 08/08/2024 4:02 PM [facility] Calcium 8.7 8.5 - 10.5 mg/dL LAB CHEMISTRY METHOD 08/08/2024 4:02 PM [facility] Blood Venous blood specimen / Unknown Venipuncture / Unknown 08/08/2024 9:42 AM EST 08/08/2024 9:42 AM EST us Kyle Bean MD LAB BLOOD ORDERABLES Final Result [facility] [address] [place] [address], * CT Lung Screening (07/03/2024 2:31 PM [...] Signed Date: 07/04/2024 10:57 ET Workstation ID: [id number] Transcribed By: Self Edit Transcribed Date: 07/04/2024 [...] Signed Date: 07/04/2024 10:57 ET Workstation ID: [id number] Transcribed By: Self Edit Transcribed Date: 07/04/2024 [...] Most Recently Relevant to Health Maintenance [place] [address] [address] [address] ([facility]) Care Teams Sack Cleaner Relationship Specialty Start Date End Date Kyle Bean MD [address] [place] [address] PCP - General 04/23/24
--- OUTSIDE RECORDS SUMMARY | 2024-10-16 11:00 | XMS_ITS | Encounter Summary ---
Author Organization [facility] [place] [address] Care Team Providers Care Summer Analyst Name Role Phone Kyle Bean MD Primary Care Provider [phone]- [phone] Reason for Visit * Reason Onset Date Comments Prior Auth 09/17/2024 Encounter Details Date Type Department Care Team (Late st Contact Info) Description 09/17/2024 Telephone Adult Medicine [address] [phone] Mariya Reardon RN Prior Auth Social History [...] ZITUVIO Thank you Please reply back to [facility] (Prior Auth Pool) Jenna Power [facility] Prior Authorization Ext [phone] * Haven Kevin - 09/25/2024 10:07 AM EST Veda is calling in regards to this Prior Auth request. Checking status on the Prior Auth. * Mariya Reardon - 09/17/2024 8:44 AM EST Prior Authorization for Medication-do not complete and send this encounter unless you have the fax from the pharmacy. Is this a Cover My Meds request: Yes -- Rowell Code [id number] Name of Medication Januvia Dose of Medication 25MG documented in this encounter Plan of Treatment Upcoming Encounters Date Type Department Care Team (Late st Contact Info) Description 11/11/2024 11:00 AM EDT Office Visit Adult Medicine [address] [phone] Kyle Bean MD [address] [place] [phone] documented as of this encounter Visit Diagnoses Not on filedocumented in this encounter Discontinued Medications Medication Sig Discontinue Reason Start Date End Da te SITagliptin phosphate (Januvia) 25 mg tablet Take 1 tablet (25 mg total) by mouth 1 (one) time each day. Cost of medication 08/13/2024 09/30/2024 documented as of this encounter Care Teams Summer Analyst Relationship Specialty Start Date End Date Kyle Bean MD [address] [place] [address] PCP - General 04/23/24 documented as of this encounter
--- OUTSIDE RECORDS SUMMARY | 2024-10-16 11:00 | XMS_ITS | Encounter Summary ---
Author Organization [facility] [place] [address] Care Team Providers Care Wrap Yarn Sorter Name Role Phone Kyle Bean MD Primary Care Provider [phone]- [phone] Encounter Details Date Type Department Care Team ([facility] Contact Info) Description 09/24/2024 Telephone Adult Medicine [address] [phone] Kyle Bean MD [address] [place] [address] [phone] Social History Tobacco Use Types Packs/Day Years [...] 11:00 AM EDT Office Visit Adult Medicine [address] [phone] Kyle Bean MD [address] [place] [phone] documented as of this encounter Visit Diagnoses Not on filedocumented in this encounter Care Teams Wrap Yarn Sorter Relationship Specialty Start Date End Date Kyle Bean MD [address] [place] [address] PCP - General 04/23/24 documented as of this encounter
[2024-10-16 18:27] LABS: Hematocrit 38.6 % (42.0-52.0); Hemoglobin 12.4 g/dl (14.0-18.0); Mean Corpuscular HGB Conc 32.1 g/dl (31.0-36.0); Mean Corpuscular Hemoglobin 28.6 pg (27.0-33.0); Mean Corpuscular Volume 88.9 fL (80.0-98.0); Mean Platelet Volume 10.9 fL (9.4-12.4); Platelet Count 288 X10*3/uL (160-400); Red Blood Count 4.34 X10*6/uL (4.60-5.80); Red Cell Distribution Width 13.9 % (11.0-16.0); White Blood Count 8.2 X10*3/uL (4.8-10.8)
[2024-10-16 18:39] LABS: Anion Gap 13 (12-20); Blood Urea Nitrogen 44 mg/dL (9-16); Calcium 8.8 mg/dL (8.4-10.2); Carbon Dioxide 22 mmol/L (22-29); Chloride 108 mmol/L (96-108); Estimated Glomerular Filt Rate 15; Glucose Random 240 mg/dL (60-115); Phosphorus 3.8 mg/dL (2.7-4.5); Potassium 4.1 mmol/L (3.3-5.1); Sodium 139 mmol/L (135-145)
[2024-10-16 19:01] LABS: Parathyroid Hormone Intact 448.1 pg/mL (8.7-77.1)
== END 2024-10-16 09:38 | disposition home or self-care (01) ==
LOC: HO.HKASLDS 09:37
PROVIDERS: PCP Internal Medicine; Visit Provider Internal Medicine Hypertension Specialist
DX: I12.9 Hypertensive chronic kidney disease with stage 1 through stage 4 chronic kidney disease, or unspecified chronic kidney disease (principal); E11.22 Type 2 diabetes mellitus with diabetic chronic kidney disease; N18.32 Chronic kidney disease, stage 3b; N28.89 Other specified disorders of kidney and ureter; D64.9 Anemia, unspecified; N25.81 Secondary hyperparathyroidism of renal origin
CPT/HCPCS: 36415; 80048; 83970; 84100; 85027

== ENCOUNTER 2025-02-05 08:52 | Outpatient (REF) | payer BC, SELFPAY ==
[2025-02-05 18:30] LABS: Hematocrit 36.3 % (42.0-52.0); Hemoglobin 11.4 g/dl (14.0-18.0); Mean Corpuscular HGB Conc 31.4 g/dl (31.0-36.0); Mean Corpuscular Hemoglobin 29.1 pg (27.0-33.0); Mean Corpuscular Volume 92.6 fL (80.0-98.0); Mean Platelet Volume 10.8 fL (9.4-12.4); Platelet Count 255 X10*3/uL (160-400); Red Blood Count 3.92 X10*6/uL (4.60-5.80); Red Cell Distribution Width 14.2 % (11.0-16.0); White Blood Count 8.2 X10*3/uL (4.8-10.8)
[2025-02-05 18:37] LABS: Parathyroid Hormone Intact 636.9 pg/mL (8.7-77.1)
[2025-02-05 18:53] LABS: Alanine Aminotransferase 18 U/L (0-40); Albumin Level 4.3 g/dL (3.5-5.0); Alkaline Phosphatase 111 U/L (39-117); Anion Gap 13 (12-20); Aspartate Amino Transferase 21 U/L (5-37); Bilirubin Total 0.4 mg/dL (0.0-1.0); Blood Urea Nitrogen 52 mg/dL (9-16); Carbon Dioxide 21 mmol/L (22-29); Chloride 110 mmol/L (96-108); Estimated Glomerular Filt Rate 14; Glucose Random 307 mg/dL (60-115); Phosphorus 5.1 mg/dL (2.7-4.5); Potassium 4.7 mmol/L (3.3-5.1); Sodium 139 mmol/L (135-145); Total Protein 7.4 g/dL (6.5-8.0)
== END 2025-02-05 08:53 | disposition home or self-care (01) ==
LOC: HO.HKASLDS 08:52
PROVIDERS: PCP Internal Medicine; Visit Provider Internal Medicine Hypertension Specialist
DX: N18.4 Chronic kidney disease, stage 4 (severe) (principal)
CPT/HCPCS: 36415; 80053; 83970; 84100; 85027

== ENCOUNTER 2025-02-05 08:52 | Outpatient (AMB) | payer BC, SELFPAY ==
[2025-02-05 09:05] VITALS: BP 130/82; PULSE 67; O2SAT 97; BMI 31.4
--- NOTE | 2025-02-05 09:05 | HO.NEPHOV ---
Vital Signs 02/05/25 09:05 Height 6 ft 1 in Weight 238 lb BMI 31.4 BP 130/82 Blood Pressure Location Rt brachial Position Sitting Pulse 67 Pulse Source Pulse Oximeter Pulse Oximetry (%) 97 Oxygen Delivery Method Room Air Intake Visit Reasons: 4mon follow-up w/labs LVM Corrections Caseworker Required: No Accompanied by: Nurse Allergies gabapentin Allergy (Verified 02/05/25 09:08) Unknown Medication List - Last Reconciled 02/05/25 by Aditya Nava MD acetaminophen 650 mg PO Q6H PRN amlodipine 10 mg PO DAILY apixaban (Eliquis) 5 mg PO BID atorvastatin 40 mg PO BEDTIME calcitriol 0.25 mcg PO DAILY carvedilol 12.5 mg PO BID ciclopirox 0.77% 1 appl See Protocol topical BID empagliflozin (Jardiance) 25 mg PO DAILY famotidine (Pepcid AC) 10 mg PO BID PRN guaifenesin 200 mg PO Q4H PRN levothyroxine 50 mcg PO DAILY ondansetron 4 mg PO Q6H PRN pantoprazole 40 mg PO DAILY polyethylene glycol 3350 (Miralax) 17 grams PO BID psyllium husk (Metamucil) 1 tbsp PO BID sertraline 50 mg PO DAILY tramadol 50 mg PO Q8H PRN trazodone 25 mg PO BEDTIME HPI Comments Details: Jacob is a 51-year-old man with history of longstanding hypertension complicated by CVA. He has stage IIIB CKD. Patient creatinine is around 3.0 mg/dL. In April 2023 had an episode of nose bleed and was seen by ENT. A CT scan of the sinuses been done and he has a follow-up appointment with ENT surgeon. Hemoglobin dropped to 6.6 post epistaxis and he was transfused [address] scan of the abdomen showed a simple cyst on the right kidney and an indeterminate cyst measuring 3 cm in the right kidney. He has no hematuria. No line pain. Out of office blood pressure readings have been acceptable. 10/31/23 ;Overall doing well. Home BP noted 07/17/2024. Jacob is here for follow-up. All medications were reviewed. Jardiance has been increased 02/05/25 54-year-old male presenting with urinary symptoms marked by polyuria and a sensation of incomplete bladder emptying. These symptoms have persisted for an unspecified period, leading to frustration with the need to void again shortly after urination. Despite this, there has been no prior ultrasound to assess kidney and bladder function; however, a CT scan last year revealed a renal cyst. The patient has a history of hypertension and is on multiple antihypertensive medications. He reports occasional nausea but no changes in appetite or vomiting. He was informed that there might have been a change in his carvedilol dosage, which he is unclear about due to a missed appointment. [facility] Medical History Renal failure PFO (patent foramen ovale) Hypertension DVT (deep venous thrombosis) Diabetes mellitus Left-sided cerebrovascular accident (CVA) Osteomyelitis Social History Housing: Alf Patient Tobacco Use Status: Former Tobacco user service: No Physical Exam Vital Signs: Last Vital Signs Pulse 67 02/05/25 09:05 BP 130/82 02/05/25 09:05 Pulse Ox 97 02/05/25 09:05 Oxygen Delivery Method Room Air 02/05/25 09:05 BMI result Body Mass Index 31.4 Const General: comfortable; No acute distress Orientation/consciousness: patient oriented x3 Eyes General: appearance normal, both eyes and all related structures Visual Chang: normal visual chang by confrontation Neck Neck: Yes supple and Yes no JVD Resp Effort & Inspection: normal respiratory effort and respiratory effort not decreased Auscultation: rhonchi Cardio Palpation: no palpable S3 and no palpable S4 Heart sounds: no rubs GI Inspection: Yes normal to inspection Palpation (GI): Soft to palpation Percussion: Yes normal to percussion Auscultation: normal bowel sounds General: Yes no CVA tenderness Back/Spine/Pelvis Back: no CVA tenderness Skin General skin exam: no petechiae and no purpura Neuro General: patient oriented x3 Motor exam (neuro): no asterixis and Other motor observations present (Left-sided weakness and walks with circumduction) Extrem General: No clubbing and Yes edema Results Reviewed Nephrology Results: Hgb 12.4 g/dl (14.0-18.0) L 10/16/24 WBC 8.2 X10*3/uL (4.8-10.8) 10/16/24 Plt Count 288 X10*3/uL (160-400) 10/16/24 Sodium 139 mmol/L (135-145) 10/16/24 Potassium 4.1 mmol/L (3.3-5.1) 10/16/24 Chloride 108 mmol/L (96-108) 10/16/24 Carbon Dioxide 22 mmol/L (22-29) 10/16/24 BUN 44 mg/dL (9-16) H 10/16/24 Creatinine 4.13 mg/dL (0.5-1.4) H* 10/16/24 Calcium 8.8 mg/dL (8.4-10.2) 10/16/24 Phosphorus 3.8 mg/dL (2.7-4.5) 10/16/24 PTH Intact 448.1 pg/mL (8.7-77.1) H 10/16/24 Assessment & Plan Assessment & Plan (1) CKD (chronic kidney disease) stage 4, GFR 15-29 ml/min: Code(s): N18.4 - Chronic kidney disease, stage 4 (severe) Category: Medical Plan: Serum creatinine was stable around 2.87 mg/dL. and now up to 4 Goal is to slow the progression of renal disease Maintain blood pressure less than 130/80 Continue to avoid nephrotoxic agents. Continue with SGLT 2 inhibitor Repeat labs today (2) Renal mass: Code(s): N28.89 - Other specified disorders of kidney and ureter Category: Medical Plan: 1. The simple cyst on the right kidney does not require any follow-up. 2. He has an indeterminate cyst measuring 3 cm in the right kidney. Noted in 05/17/2023. Follow-up CT scan in 01/15/2024 revealed stable cyst. I will reimage the cyst NOW - USG ordered ; and if there is any change we will refer to Urology. . (3) Diabetes mellitus: Code(s): E11.9 - Type 2 diabetes mellitus without complications Category: Medical Plan: Goal A1c less than 7% (4) Hypertension: Code(s): I10 - Essential (primary) hypertension Category: Medical Plan: Blood pressure is better controlled No change in medication Stay on low-sodium diet (5) Anemia: Code(s): D64.9 - Anemia, unspecified Category: Medical Plan: Multifactorial. 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 Follow hemoglobin (6) Secondary hyperparathyroidism: Code(s): N25.81 - Secondary hyperparathyroidism of renal origin Category: Medical Plan: On calcitriol. Ordered intact PTH and calcium today Orders: Orders Complete Blood Count no Diff Today N18.4 - Chronic kidney disease, stage 4 (severe) Comprehensive Met. Panel Today N18.4 - Chronic kidney disease, stage 4 (severe) Phosphorus Today N18.4 - Chronic kidney disease, stage 4 (severe) US renal BI Today N18.4 - Chronic kidney disease, stage 4 (severe) Parathyroid Hormone Intact Today N18.4 - Chronic kidney disease, stage 4 (severe) Basic Metabolic Panel 3 Months N18.4 - Chronic kidney disease, stage 4 (severe) Coding Level of Care Code Est Pt Level 4 (60368) Diagnoses CKD (chronic kidney disease) stage 4, GFR 15-29 ml/min N18.4 Renal mass N28.89 Diabetes mellitus E11.9 Hypertension I10 Anemia D64.9 Secondary hyperparathyroidism N25.81
--- OUTSIDE RECORDS SUMMARY | 2025-02-05 09:14 | XMS_ITS ---
[facility] Address [address] [place] [address] Care Team Providers Care Office Technician Name Role Phone Stanislav LEDESMA, Hakeem Primary Care Provider UnavailJarred Tejada Unavailable [phone] REASON FOR VISIT Painful nail(s) aggrevated by [...] Not-Taking Encounters Encounter Location Date Provider Diagnosis [facility] [place] [address] [place] [address] 02/28/2024 Jarred Oleary Tinea unguium B35.1 ; [...] as necessary. Patient chooses, no pharmaceutical tx (40451) Keratoma Treatment Parring or Cutting o f Benign Hyperkeratotic Lesion(s) 18274 (2-4 Lesions) - The Benign hyperkeratotic lesions, as described above were pared, and/or cut utilizing a sterile #15 blade, tissue nippers, and/or dremel Progress Notes * Jacob LOCODOB:[birth year] (54 yo M)Acc No.[id number]:02/28/2024 Progress Note Patient:?Jacob LOCO Provider:?Jarred Oleary DPM :1970???Age:53 Y???Sex:Male David e:02/28/2024 Address:[facility] [address], [place] [address] Pcp:Hakeem [place] MD Subjective: * Chief Complaints: [...] hyperesthesia due to cva.?Vascular: ?DP PULSES (B):? /4, B/L.?PT PULSES (B):? 08/31, B/L.?CAPILLARY FILL TIME:?3 [...] and in no acute distress.?ORIENTED:?person,place, and time.?FOOT EXAM:?Lower Extremity Neurological Exam performed:?Yes ?Visual exam of foot performed:?Yes ?Date?11/29/2023 ?Sensory testing performed:?sensations diminished ?Pedal pulse taking performed:?2+?Orthopedic: ?FOOT MORPHOLOGY:? Dropfoot noted NWB and wb left--pt has afo brace.?DIGITAL DEFORMITIES:? Digital contracture, PIPJ, 2-5 B/L, incompl- reducable with WB, or to push-up test, no over, nor underlapping.?Ingrown Nail: ?INSPECTION:?Reveals nail incurvation, pain on palpation, groove hypertrophy, groove ischemia, Lateral nail border, T6.?Ophthalmology Referral: ?DIABETES EYE EXAM?Diabetic Retinopathy Screening:?Yes ?Findings of Diabetic Eye Exam:?no retinopathy??? Assessment: * Assessment: 1.?Tinea unguium - B35.1 [...] as necessary. Patient chooses, no pharmaceutical tx (03189).?Keratoma Treatment:?Parring or Cutting of Benign Hyperkeratotic Lesion(s)?20603 (2-4 Lesions) - The Benign hyperkeratotic lesions, as described above were pared, and/or cut utilizing a sterile #15 blade, tissue nippers, and/or dremel.? * Procedure Codes:?78467 DEBRI DE NAIL, 6 OR MORE, Modifiers: XS , 14456 TRIM SKIN LESIONS, 2 TO 4, Modifiers: XS * Follow Up:?3 Months * Images: * The named appointment provid er may or may not be the originator of this progress note, and it is not deemed complete until electronically signed by the appointment provider. Sign off status: Pending * Provider:Paris Oleary DPM Date:? 024 Generated for Daniel johnson/Anand/Thony on:?02/05/2025 09:14 AM EDT History and Physical Notes * HPI (History [...] taking performed:: 2+ ORIENTED: person,place, and ti me Ophthalmology Referral DIABETES EYE EXAM Diabetic Retinopa [...]
== END 2025-02-05 09:21 | disposition home or self-care (01) ==
LOC: HO.HKAS 08:52
PROVIDERS: PCP Internal Medicine; Visit Provider Internal Medicine Hypertension Specialist
DX: I12.9 Hypertensive chronic kidney disease with stage 1 through stage 4 chronic kidney disease, or unspecified chronic kidney disease (principal); N18.4 Chronic kidney disease, stage 4 (severe); N28.89 Other specified disorders of kidney and ureter; E11.9 Type 2 diabetes mellitus without complications; D64.9 Anemia, unspecified; N25.81 Secondary hyperparathyroidism of renal origin
CPT/HCPCS: 99214